=== PATIENT | male | born 1935 | race Caucasian/White ===

== ENCOUNTER 2018-07-26 07:30 | Emergency (ER) | payer MEDICARE, SELFPAY ==
[2018-07-26] VITALS (9 sets, daily range): BP systolic 142–171; BP diastolic 66–96; PULSE 62–70; RESP 13–30; TEMP 36.7; O2SAT 94–100
--- NOTE | 2018-07-26 07:33 | DI.RAD.S_ITS ---
PROCEDURE: XR CHEST 1V INDICATIONS: HTN, weakness TECHNIQUE: One view of the chest was acquired. COMPARISON: [facility], CR, CHEST 2VW, 11/12/2013, 11:46. [facility], CR, CHEST 2VW, 11/24/2013, 8:14. FINDINGS: Surgical changes and devices: There is a cardiac pacemaker. Sternotomy and CABG. Lungs and pleura: Mild hyperinflation. 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 Nodular densities in lower lung zones bilaterally are likely nipple shadows. No pleural effusions or pneumothorax. Mediastinum: Mediastinal contours appear normal. Heart size is normal. Bones and chest wall: No suspicious bony lesions. Overlying soft tissues appear unremarkable. IMPRESSION: No acute cardiopulmonary process. Dictated by: Sina Tinsley M.D. on 07/26/2018 at 8:56 Approved by: Sina Tinsley M.D. on 07/26/2018 at 8:59
--- NOTE | 2018-07-26 08:12 | DI.CT.S_ITS ---
PROCEDURE: CT HEAD/BRAIN WO CON INDICATIONS: severe MILNER, HTN 220s TECHNIQUE: Noncontrast 4.5 mm thick angled axial sections acquired from the foramen magnum to the vertex, with coronal and sagittal reformats. For radiation dose reduction, the following was used: automated exposure control, adjustment of mA and/or kV according to patient size. COMPARISON: [facility], CT, HEAD WITHOUT CONTRAST, 09/07/2013, 11:53. FINDINGS: Image quality: Excellent. CSF spaces: Basal cisterns are patent. No extra-axial fluid collections. The ventricles are symmetric in size and shape. Brain: There is encephalomalacia in the right parietal occipital lobe consistent with old infarct. In addition, there are small areas of encephalomalacia in the left parietal lobe and occipital lobe consistent with old infarcts. No intracranial bleeds or masses. There is cerebral volume loss for age, with resultant ventricular and sulcal prominence. There are periventricular and deep white matter chronic small vessel ischemic changes. There is intracranial internal carotid artery atherosclerosis. Skull and face: Calvarium and visualized facial bones appear intact, without suspicious lesions. Sinuses: Visualized sinuses and mastoids are clear. IMPRESSION: 1. 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 2. 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 3. Cerebral volume loss and chronic microvascular ischemic changes. 4. If clinical symptoms persist or clinical suspicion for pathology is high, MRI is suggested for further evaluation. Dictated by: Sina Tinsley M.D. on 07/26/2018 at 8:50 Approved by: Sina Tinsley M.D. on 07/26/2018 at 9:44
[2018-07-26 08:20] LABS: Add Manual Diff / Slide Review NO; Basophils Absolute Auto 0 /uL (0-100); Basophils Percent Auto 0.4 % (0-2); Eosinophils Absolute Auto 0 /uL (0-450); Eosinophils Percent Auto 0.4 % (2-4); Hematocrit 54.4 % (41-53); Hemoglobin 18.3 g/dL (13.5-17.5); Lymphocytes Absolute Auto 1300 /uL (1100-4500); Lymphocytes Percent Auto 13.8 % (25-40); Mean Corpuscular HGB Conc 33.6 % (30-36); Mean Corpuscular Hemoglobin 30.5 PG (26-34); Mean Corpuscular Volume 90.8 fL (80-100); Monocytes Absolute Auto 700 /uL (0-900); Monocytes Percent Auto 7.5 % (3-14); Neutrophils Absolute Auto 7600 /uL (1500-7000); Neutrophils Percent Auto 77.9 % (50-75); Platelet Count 96 X10^3/uL (150-400); Red Blood Cell Count 5.99 X10^6/uL (4.5-5.9); White Blood Cell Count 9.8 X10^3/uL (4.5-11.0)
[2018-07-26 08:21] LABS: Alanine Aminotransferase 53 IU/L (21-72); Albumin 3.9 g/dL (3.5-5.0); Albumin Globulin Ratio 1.3 (1.0-2.8); Alkaline Phosphatase 94 U/L (38-126); Aspartate Aminotransferase 42 IU/L (17-59); BUN Creatinine Ratio 21.1 (6-22); Bilirubin Total 1.4 mg/dL (0.2-1.3); Blood Urea Nitrogen 19 mg/dL (9-20); Calcium 9.1 mg/dL (8.4-10.2); Carbon Dioxide 28 mmol/L (22-32); Chloride 101 mmol/L (98-107); Creatine Kinase 70 U/L (55-170); Estimated Glomerular Filt Rate > 60.0 mL/min (>60); Globulin 3.1 g/dL (1.7-4.1); Glucose 110 mg/dL (80-110); HEMOLYSIS 35 (0-50); Lipase 140 U/L (23-300); Potassium 4.8 mmol/L (3.4-5.1); Sodium 139 mmol/L (137-145)
[2018-07-26 08:33] LABS: Troponin I 0.032 ng/mL (0.01-0.034)
[2018-07-26] MEDS: SODIUM CHLORIDE 0.9% 1,000 ML 150 ML IV (08:35)
[2018-07-26 08:45] LABS: B Type Natriuretic Peptide 174 (<100)
[2018-07-26] MEDS: ONDANSETRON 4 MG/2 ML INJ IV (09:30)
[2018-07-26] MEDS: KETOROLAC 60 MG/2 ML VIAL 15 MG IV (09:53)
[2018-07-26 10:37] LABS: C-Reactive Protein Quant < 0.5 mg/dL (<1.0)
[2018-07-26 10:41] LABS: Erythrocyte Sedimentation Rate 1 MM/HR (0-15)
[2018-07-26] MEDS: acetaZOLAMIDE 250 MG TABLET PO (10:41)
--- NOTE | 2018-07-26 10:45 | ED_ITS ---
HPI - General Adult General Chief complaint: Headache Stated complaint: Headache Time Seen by Provider: 07/26/18 07:33 Source: patient and EMS Mode of arrival: EMS Limitations: no limitations History of Present Illness HPI narrative: 82-year-old male former smoker with multiple medical problems including cardiovascular disease and a known history of left-sided central retinal vein occlusion as well as dementia presents by EMS for evaluation of a terrible headache that has been present over the course of the morning. It is left frontal headache. He denies any provocation or palliation. He is admittedly a very poor historian and has a hard time explaining his symptoms. He has nausea but no vomiting. He denies chest pain or shortness of breath. On EMS arrival they found his blood pressure to be 220 but by arrival in the emergency department he was in the 170s without any change in his symptoms Onset (ago): hour(s) Location: head Radiation: non-radiation Severity: mild Quality: burning Pain Consistency: constant Relieving factors: none Exacerbating factors: none Associated symptoms: denies other symptoms Related Data Home Medications Medication Instructions Recorded Confirmed magnesium oxide 500 mg PO DAILY #0 12/27/12 07/26/18 nitroglycerin [Nitrostat] 0.4 mg SUBLINGUAL PRN PRN #0 12/27/12 07/26/18 atorvastatin 80 mg PO DAILY 07/26/18 07/26/18 buspirone 1.25 mg PO BEDTIME 07/26/18 07/26/18 carvedilol 6.25 mg PO BID 07/26/18 07/26/18 cholecalciferol (vitamin D3) 1,000 unit PO DAILY 07/26/18 07/26/18 [Vitamin D3] clopidogrel [Plavix] 75 mg PO DAILY 07/26/18 07/26/18 donepezil [Aricept] 10 mg PO BEDTIME 07/26/18 07/26/18 flaxseed oil 2,000 mg PO DAILY 07/26/18 07/26/18 gabapentin 100 - 300 mg PO BEDTIME 07/26/18 07/26/18 hydralazine 25 mg PO BID 07/26/18 07/26/18 isosorbide dinitrate 30 mg PO DAILY 07/26/18 07/26/18 meloxicam 7.5 mg PO DAILY 07/26/18 07/26/18 pantoprazole 40 mg PO DAILY 07/26/18 07/26/18 sertraline [Zoloft] 50 mg PO DAILY 07/26/18 07/26/18 Allergies Allergy/AdvReac Type Severity Reaction Status Date / Time No Known Allergies Allergy Uncoded 08/17/17 12:54 Review of Systems Constitutional Denies chills, Denies fever(s), Denies lethargy and Denies weakness Eyes Denies change in vision, Denies eye discharge, Denies irritation and Denies loss of vision ENT Ears, Nose, Mouth, and Throat: Denies change in voice, Denies neck pain and Denies sore throat Cardiovascular Denies chest pain, Denies irregular heart rhythm, Denies lightheadedness, Denies palpitations, Denies dyspnea, Denies dyspnea on exertion and Denies orthopnea Respiratory Denies cough, Denies dyspnea, Denies dyspnea on exertion and Denies wheezing Gastrointestinal Gastrointestinal: Denies abdominal pain, Denies change in bowel habits, Denies diarrhea, Denies nausea and Denies vomiting Genitourinary Denies hematuria, Denies flank pain, Denies urinary incontinence and Denies urinary urgency Musculoskeletal Denies neck pain Integumentary/Breasts Denies pruritus, Denies erythema, Denies rash and Denies wounds Neurologic Denies confusion, Denies loss of vision and Denies weakness Psychiatric Denies anxiety, Denies confusion, Denies depression, Denies homicidal ideation and Denies suicidal ideation Endocrine Denies palpitations Hematologic/Lymphatic Denies easy bruising Allergic/Immunologic Denies wheezing PFSH Medical History CRVO (central retinal vein occlusion) (Acute) Dementia (Acute) HTN (hypertension) (Acute) TIA (transient ischemic attack) (Acute) Social History Smoking Status: Former smoker Social History Smoking Status: Former smoker Exam Narrative Exam Narrative: GENERAL: 82-year-old male appears stated age, pleasantly confused, obviously uncomfortable and rubbing his left forehead HEAD: Atraumatic. Normocephalic. No temporal or scalp tenderness. EYES: L eye red watering, fixed pupil. Vision limited to hand waving. Tonopen OD 20/ OS ERROR multiple times. Retinal US unremarkable. Normal optic nerve sheath width (<5). No fluoroscein ENT: Nose without bleeding, purulent drainage or septal hematoma. Throat without erythema, tonsillar hypertrophy or exudate. Uvula midline. Airway patent. NECK: Trachea midline. No JVD or lymphadenopathy. Supple, nontender, no meningeal signs. CARDIOVASCULAR: Regular rate and rhythm without murmurs, gallops, or rubs. RESPIRATORY: Clear to auscultation. Breath sounds equal bilaterally. No wheezes, rales, or rhonchi. GASTROINTESTINAL: Abdomen soft, non-tender, nondistended. No hepato- splenomegaly, or palpable masses. No guarding. EXTREMITIES: No clubbing, cyanosis, or edema. No joint tenderness, effusion, or edema noted. BACK: Nontender without deformity or crepitance. No flank tenderness. NEURO: AOx3. SKIN: No rash or erythema. Initial Vital Signs Initial Vital Signs: Vital Signs Temperature 98.0 F 07/26/18 07:30 Pulse Rate 62 07/26/18 07:30 Respiratory Rate 18 07/26/18 07:30 Blood Pressure 169/84 H 07/26/18 07:30 Pulse Oximetry 100 07/26/18 07:30 Course Course Narrative: Despite patient's constant statement that he always has trouble with his left eye and that his vision is constantly affected I have a high suspicion that this is all caused by an acute angle closure glaucoma. The patient is very high functioning dementia patient and is in until his daughter calls that she she has some light on his rather convincing presentation and ability to hide his confusion. She was able to confirm his primary care provider as Dr. Cuba whom I then called and was able to find an ophthalmology note suggesting the patient has a history of a central retinal vein occlusion. This finding is still not consistent such significant pain, red eye, fixed p upil. I then contacted local ophthalmology to explain my concern. They are more than happy to receive the patient directly from the emergency department to their clinic where they were able to perform studies confirming my suspicion. He was treated and sent back to the emergency department for final disposition. Please see Ophthalmology note for specifics on discharge instructions and medications. He does have follow-up scheduled for tomorrow. Orders Ordered: Discontinued Medications Acetazolamide (Diamox) 250 mg PO NOW ONE Stop: 07/26/18 10:18 Last Admin: 07/26/18 10:41 Dose: 250 mg Sodium Chloride (Normal Saline 0.9%) 1,000 mls @ 150 mls/hr IV CONT SUSAN Last Infusion: 07/26/18 13:57 Dose: 0 mls/hr Infusion: 07/26/18 11:19 Dose: 0 mls/hr Admin: 07/26/18 08:35 Dose: 150 mls/hr Ketorolac Tromethamine (Toradol) 15 mg IV NOW ONE Stop: 07/26/18 09:49 Last Admin: 07/26/18 09:53 Dose: 15 mg Latanoprost (Xalatan) 1 drops EYE-LEFT BEDTIME SUSAN Ondansetron HCl (Zofran) 4 mg IV NOW ONE Stop: 07/26/18 09:29 Last Admin: 07/26/18 09:30 Dose: 4 mg Vital Signs - 8 hr 07/26/18 13:40 Pulse Rate 68 Respiratory Rate 16 Blood Pressure [Left Arm] 142/80 H Pulse Oximetry 96 Medical Decision Making Lab Data Result diagrams: 07/26/18 08:02 07/26/18 08:02 Lab Results 07/26/18 07/26/18 07/26/18 Range/Units 08:02 08:02 08:02 WBC 9.8 (4.5-11.0) X10^3/uL RBC 5.99 H (4.5-5.9) X10^6/uL Hgb 18.3 H (13.5-17.5) g/dL Hct 54.4 H (41-53) % MCV 90.8 (80-100) fL MCH 30.5 (26-34) PG MCHC 33.6 (30-36) % RDW 14.0 (11.6-14.8) % Plt Count 96 L (150-400) X10^3/uL Neut % (Auto) 77.9 H (50-75) % Lymph % (Auto) 13.8 L (25-40) % Liberty % (Auto) 7.5 (3-14) % Eos % (Auto) 0.4 L (2-4) % Baso % (Auto) 0.4 (0-2) % Neut # (Auto) 7600 H (2128-1824) /uL Lymph # (Auto) 1300 (2371-4258) /uL Liberty # (Auto) 700 (0-900) /uL Eos # (Auto) 0 (0-450) /uL Baso # (Auto) 0 (0-100) /uL ESR 1 (0-15) MM/HR Sodium 139 (137-145) mmol/L Potassium 4.8 (3.4-5.1) mmol/L Chloride 101 (98-107) mmol/L Carbon Dioxide 28 (22-32) mmol/L BUN 19 (9-20) mg/dL Creatinine 0.90 (0.66-1.25) mg/dL Estimated GFR > 60.0 (>60) mL/min BUN/Creatinine Ratio 21.1 (6-22) Glucose 110 (80-110) mg/dL Calcium 9.1 (8.4-10.2) mg/dL Total Bilirubin 1.4 H (0.2-1.3) mg/dL AST 42 (17-59) IU/L ALT 53 (21-72) IU/L Alkaline Phosphatase 94 (38-126) U/L Total Creatine Kinase 70 (55-170) U/L CK-MB (CK-2) TNP CK-MB (CK-2) Rel Index TNP Troponin I 0.032 (0.01-0.034) ng/mL C-Reactive Protein (<1.0) mg/dL B-Natriuretic Peptide 174 H (<100) Total Protein 7.0 (6.3-8.2) g/dL Albumin 3.9 (3.5-5.0) g/dL Globulin 3.1 (1.7-4.1) g/dL Albumin/Globulin Ratio 1.3 (1.0-2.8) Lipase 140 (23-300) U/L 07/26/18 Range/Units 08:02 WBC (4.5-11.0) X10^3/uL RBC (4.5-5.9) X10^6/uL Hgb (13.5-17.5) g/dL Hct (41-53) % MCV (80-100) fL MCH (26-34) PG MCHC (30-36) % RDW (11.6-14.8) % Plt Count (150-400) X10^3/uL Neut % (Auto) (50-75) % Lymph % (Auto) (25-40) % Liberty % (Auto) (3-14) % Eos % (Auto) (2-4) % Baso % (Auto) (0-2) % Neut # (Auto) (9433-6225) /uL Lymph # (Auto) (9396-6609) /uL Liberty # (Auto) (0-900) /uL Eos # (Auto) (0-450) /uL Baso # (Auto) (0-100) /uL ESR (0-15) MM/HR Sodium (137-145) mmol/L Potassium (3.4-5.1) mmol/L Chloride (98-107) mmol/L Carbon Dioxide (22-32) mmol/L BUN (9-20) mg/dL Creatinine (0.66-1.25) mg/dL Estimated GFR (>60) mL/min BUN/Creatinine Ratio (6-22) Glucose (80-110) mg/dL Calcium (8.4-10.2) mg/dL Total Bilirubin (0.2-1.3) mg/dL AST (17-59) IU/L ALT (21-72) IU/L Alkaline Phosphatase (38-126) U/L Total Creatine Kinase (55-170) U/L CK-MB (CK-2) CK-MB (CK-2) Rel Index Troponin I (0.01-0.034) ng/mL C-Reactive Protein < 0.5 (<1.0) mg/dL B-Natriuretic Peptide (<100) Total Protein (6.3-8.2) g/dL Albumin (3.5-5.0) g/dL Globulin (1.7-4.1) g/dL Albumin/Globulin Ratio (1.0-2.8) Lipase (23-300) U/L Discharge Plan Departure Patient Disposition: Home 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 Discharge Date/Time: 07/26/18 14:10 Interventions: ED Discharge Assessment Last Done: 07/26/18 14:10 Instructions: Angle-Closure Glaucoma Activity Restrictions/Additional Instructions: Discharge per ophthalmology Prescriptions: No Action magnesium oxide 500 mg Tablet 500 mg PO DAILY Qty: 0 RF: 0 nitroglycerin [Nitrostat] 0.4 MG tablet, sublingual 0.4 mg Sublingual PRN PRN (Reason: Chest Pain) Qty: 0 RF: 0 buspirone 5 mg Tablet 1.25 mg PO BEDTIME RF: 0 atorvastatin 80 mg Tablet 80 mg PO DAILY RF: 0 carvedilol 12.5 mg Tablet 6.25 mg PO BID RF: 0 donepezil [Aricept] 10 mg Tablet 10 mg PO BEDTIME RF: 0 hydralazine 25 mg Tablet 25 mg PO BID RF: 0 clopidogrel [Plavix] 75 mg Tablet 75 mg PO DAILY RF: 0 meloxicam 7.5 mg Tablet 7.5 mg PO DAILY RF: 0 isosorbide dinitrate 30 mg Tablet 30 mg PO DAILY RF: 0 flaxseed oil 1,000 mg Capsule 2,000 mg PO DAILY RF: 0 pantoprazole 40 mg Tablet,Delayed Release (Dr/Ec) 40 mg PO DAILY RF: 0 gabapentin 100 mg Capsule 100 - 300 mg PO BEDTIME RF: 0 sertraline [Zoloft] 50 mg Tablet 50 mg PO DAILY RF: 0 cholecalciferol (vitamin D3) [Vitamin D3] 1,000 unit Tablet 1,000 unit PO DAILY RF: 0 Referrals: Ernesto Plascencia MD [Physician] -
--- NOTE | 2018-07-26 11:07 | PC.NURSE ---
Pt wheeled to [facility] via wheelchair and [employer] accompany
--- NOTE | 2018-07-26 11:23 | PC.NURSE ---
pt to eye doctor by wheelchair. to return to ER>
== END 2018-07-26 14:10 | disposition home or self-care (01) ==
PROVIDERS: Emergency Provider Emergency Medicine
DX: H40.212 Acute angle-closure glaucoma, left eye (principal); I10 Essential (primary) hypertension
CPT/HCPCS: 36415; 70450; 71045; 80053; 82550; 83690; 83880; 84484; 85025; 85651; 86140; 93005; 96361; 96374; 96375; 99284; 99285; J1885; J2405

== ENCOUNTER 2018-08-04 10:53 | Emergency (ER) | payer MEDICARE, OTHER, SELFPAY ==
[2018-08-04] VITALS (14 sets, daily range): BP systolic 103–142; BP diastolic 46–98; PULSE 70–83; RESP 14–23; TEMP 36.8; O2SAT 93–100
--- NOTE | 2018-08-04 11:28 | DI.RAD.S_ITS ---
PROCEDURE: XR CHEST 1V INDICATIONS: chest pain TECHNIQUE: One view of the chest was acquired. COMPARISON: [facility], , XR CHEST 1V, 07/26/2018, 8:04. FINDINGS: Surgical changes and devices: A left-sided cardiac pacer/defibrillator apparatus is identified. Median sternotomy changes are noted. Lungs and pleura: Lungs are clear. No pleural effusions or pneumothorax. Aeration of the lungs is similar to the prior study. Mediastinum: Mediastinal contours appear normal. Heart size is normal. There is aortic atherosclerosis. Bones and chest wall: No suspicious bony lesions. Overlying soft tissues appear unremarkable. IMPRESSION: Stable chest. No acute cardiopulmonary process is evident. Dictated by: Dashawn Claros M.D. on 08/04/2018 at 10:52 Approved by: Dashawn Claros M.D. on 08/04/2018 at 10:53
--- NOTE | 2018-08-04 12:42 | ED.CHESTPAIN ---
HPI - Chest Pain General Chief Complaint: Chest Pain Stated Complaint: low hr, hypotension Time Seen by Provider: 08/04/18 12:42 Source: patient, family () and other (Dr. Odessa Cuba, PCP) Mode of arrival: EMS Limitations: other (chronic dementia of both patient and ) History of Present Illness HPI narrative: This is an 82-year-old male who comes to the emergency department for chest pain. Patient and his state that he has had multiple visits for glaucoma with Dr. Bacilio francis and is seeing [facility] specialty doctor in [place] now and is supposed to get surgery. He states that was about 3 or 4 days ago. states that he has seen like his fingers are sometimes yellow or blue discoloration. He has been less active but this is been for months maybe even a year. He has not been having any shortness of breath that is new or that he has noted with exertion although he states he does not really exert himself. He has had some chest pain he thinks about 3 weeks, he states he typically ignores it there does not seem to be any clear pattern. He does have a cardiac physician and Dr. akira yates and Dr. Hector and states that he stopped taking his heart pills in the last week to several days. Patient states that he ran out. He had has a lot of memory problems which the patient states he has as well as his primary care physician and his and that he forgot to get them refilled. When he ran out he just did not reorder them he has maybe felt a little lightheaded he has been sleeping a little bit more. 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 He has an AICD pacemaker in place. He denies any history of CHF but has had heart attacks and states that he had something removed from his lower heart according to his office note he had a aortic abdominal aneurysm. Related Data Home Medications Medication Instructions Recorded Confirmed nitroglycerin [Nitrostat] 0.4 mg SUBLINGUAL PRN PRN #0 12/27/12 08/04/18 atorvastatin 80 mg PO DAILY 07/26/18 08/04/18 buspirone 1.25 mg PO BEDTIME 07/26/18 08/04/18 carvedilol 12.5 mg PO BID 07/26/18 08/04/18 cholecalciferol (vitamin D3) 1,000 unit PO DAILY 07/26/18 08/04/18 [Vitamin D3] clopidogrel [Plavix] 75 mg PO DAILY 07/26/18 08/04/18 donepezil [Aricept] 10 mg PO BEDTIME 07/26/18 08/04/18 flaxseed oil 2,000 mg PO DAILY 07/26/18 08/04/18 gabapentin 100 - 300 mg PO BEDTIME 07/26/18 08/04/18 hydralazine 25 mg PO BID 07/26/18 08/04/18 meloxicam 7.5 mg PO DAILY 07/26/18 08/04/18 pantoprazole 40 mg PO DAILY 07/26/18 08/04/18 sertraline [Zoloft] 50 mg PO DAILY 07/26/18 08/04/18 acetazolamide 500 mg PO BID 08/04/18 08/04/18 brimonidine 1 drp EYE-LEFT QPM 08/04/18 08/04/18 dorzolamide 1 drp EYE-LEFT BID 08/04/18 08/04/18 isosorbide mononitrate 30 mg PO DAILY 08/04/18 08/04/18 ketoconazole 1 applic TOPICAL DIRECTED 08/04/18 08/04/18 ketoconazole 1 applic TOPICAL BID PRN 08/04/18 08/04/18 latanoprost 1 drp EYE-BOTH BEDTIME 08/04/18 08/04/18 magnesium oxide 420 mg PO DAILY 08/04/18 08/04/18 mirtazapine 7.5 mg PO BEDTIME 08/04/18 08/04/18 moxifloxacin 1 drp OPHTHALMIC (EYE) QID 08/04/18 08/04/18 multivitamin with minerals 1 tab PO DAILY 08/04/18 08/04/18 netarsudil [Rhopressa] 1 drp EYE-LEFT BEDTIME 08/04/18 08/04/18 nortriptyline 10 mg PO BEDTIME 08/04/18 08/04/18 timolol 1 drp EYE-LEFT BID 08/04/18 08/04/18 tramadol 50 mg PO TID PRN 08/04/18 08/04/18 Allergies Allergy/AdvReac Type Severity Reaction Status Date / Time No Known Drug Allergies Allergy Verified 08/04/18 11:28 Review of Systems Review of Systems ROS Unobtainable: All systems reviewed & are unremarkable except as noted in HPI and below Constitutional Denies body ache(s), Denies chills, Denies fatigue, Denies fever(s), Denies lethargy, Denies malaise, Reports poor appetite, Denies weakness and Denies weight gain Cardiovascular Reports chest pain, Denies chest pain with activity, Denies syncope, Denies rapid heart rate, Denies edema, Denies irregular heart rhythm, Denies lightheadedness, Denies radiating jaw, neck or arm pain, Denies palpitations, Denies dyspnea, Denies dyspnea on exertion and Denies orthopnea Respiratory Denies chest congestion, Denies cough, Denies pain on inspiration, Denies dyspnea and Denies dyspnea on exertion Gastrointestinal Gastrointestinal: Reports abdominal pain (Lower chest/upper abdomen), Denies melena, Denies hematochezia, Denies change in bowel habits, Denies diarrhea, Denies nausea and Denies vomiting Genitourinary Denies hematuria, Denies flank pain and Denies urinary urgency Musculoskeletal Denies back pain and Reports other (Amputation of left lower extremity) Integumentary/Breasts Denies lesions and Denies rash Neurologic Reports confusion (Slowly worsening over time), Denies syncope, Denies focal weakness, Denies sensory deficit and Denies weakness Psychiatric Reports confusion (Slowly worsening over time) Endocrine Denies fatigue and Denies palpitations [facility] Medical History (Updated 08/04/18 @ 20:01 by Josee Vásquez DO) CRVO (central retinal vein occlusion) (Acute) Dementia (Acute) HTN (hypertension) (Acute) TIA (transient ischemic attack) (Acute) AAA (abdominal aortic aneurysm) (Chronic) Atrial fibrillation (Chronic) Bilateral renal artery stenosis (Chronic) Dyslipidemia (Chronic) Peripheral vascular disease (Chronic) Thrombocytopenia (Chronic) Intracerebral bleed (Resolved) Surgical History (Updated 08/04/18 @ 20:02 by Josee Vásquez DO) AICD (automatic cardioverter/defibrillator) present (Chronic) 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 HEENT: Head normocephalic, atraumatic, EOMI, pupils reactive, face symmetric, moist mucous membranes NECK: Supple, full range of motion CARDIOVASCULAR: Irregular rate and rhythm without murmurs, rubs or gallops. No murmur appreciated. no edema noted in patient's lower extremity. RESPIRATORY: Breath sounds equal bilaterally, no wheezes rales or rhonchi. No tachypnea, no accessory muscle use. Patient speaks in full sentences. ABDOMEN: Soft, nontender. Normoactive bowel sounds all 4 quadrants. No guarding or rebound, rigidity, no mass : No CVA tenderness EXTREMITIES: Normal range of motion, no clubbing or edema. Neurovascularly intact NEUROLOGICAL: Cranial nerves II through XII grossly intact. Moving all extremities SKIN: Warm, dry, no petechiae, no rashes or lesions. Initial Vital Signs Initial Vital Signs: Vital Signs Temperature 98.2 F 08/04/18 10:48 Pulse Rate 72 08/04/18 10:48 Respiratory Rate 18 08/04/18 10:48 Blood Pressure 121/64 08/04/18 10:48 Pulse Oximetry 95 08/04/18 10:48 Course Orders Ordered: ED Orders 08/04/18 11:28 XR chest 1V Stat EKG-12 Lead Stat 08/04/18 13:53 Complete Blood Count AUTO DIFF Stat Comprehensive Metabolic Panel Stat Lipase Stat Partial Thromboplastin Time Stat Prothrombin Time INR Stat Troponin & CK Cardiac Panel Stat 08/04/18 14:27 Consult to Manager Medical Writing Stat 08/04/18 15:01 US abdomen complete Stat 08/04/18 16:02 Troponin & CK Cardiac Panel Stat 08/04/18 16:32 EKG-12 Lead Stat Discontinued Medications Sodium Chloride (Normal Saline 0.9%) 1,000 mls @ 125 mls/hr IV BOLUS ONE Stop: 08/04/18 23:35 Last Admin: 08/04/18 15:37 Dose: Not Given Vital Signs - 8 hr 08/04/18 12:13 08/04/18 12:15 08/04/18 12:44 Pulse Rate 82 76 75 Respiratory Rate 17 14 23 Blood Pressure [Left Arm] 108/55 L 103/46 L 125/61 Pulse Oximetry 97 98 98 08/04/18 13:00 08/04/18 13:25 08/04/18 14:00 Pulse Rate 76 78 79 Respiratory Rate 17 18 18 Blood Pressure [Left Arm] 111/55 L 125/98 H 115/72 Pulse Oximetry 99 99 97 08/04/18 14:30 08/04/18 15:00 08/04/18 15:30 Pulse Rate 83 83 82 Respiratory Rate 20 19 17 Blood Pressure [Left Arm] 142/76 H 132/64 110/67 Pulse Oximetry 93 98 98 08/04/18 15:52 08/04/18 16:33 08/04/18 17:13 Pulse Rate 74 73 70 Respiratory Rate 18 18 17 Blood Pressure [Left Arm] 134/83 109/53 L 127/82 Pulse Oximetry 98 98 98 MDM - Chest Pain Lab Data Attestation: I reviewed the patient's lab results. Result diagrams: 08/04/18 13:53 08/04/18 13:53 Lab Results 08/04/18 08/04/18 08/04/18 Range/Units 13:53 13:53 13:53 WBC 7.8 (4.5-11.0) X10^3/uL RBC 5.83 (4.5-5.9) X10^6/uL Hgb 17.8 H (13.5-17.5) g/dL Hct 53.3 H (41-53) % MCV 91.6 (80-100) fL MCH 30.6 (26-34) PG MCHC 33.4 (30-36) % RDW 14.6 (11.6-14.8) % Plt Count 91 L (150-400) X10^3/uL Neut % (Auto) 77.7 H (50-75) % Lymph % (Auto) 15.0 L (25-40) % Hardy % (Auto) 6.5 (3-14) % Eos % (Auto) 0.5 L (2-4) % Baso % (Auto) 0.3 (0-2) % Neut # (Auto) 6100 (4525-7976) /uL Lymph # (Auto) 1200 (4888-0230) /uL Hardy # (Auto) 500 (0-900) /uL Eos # (Auto) 0 (0-450) /uL Baso # (Auto) 0 (0-100) /uL PT 12.3 (10.1-12.7) SECONDS INR 1.1 (0.9-1.3) APTT 32 (26.4-36.2) SECONDS Sodium 141 (137-145) mmol/L Potassium 4.0 (3.4-5.1) mmol/L Chloride 111 H (98-107) mmol/L Carbon Dioxide 20 L (22-32) mmol/L BUN 24 H (9-20) mg/dL Creatinine 1.10 (0.66-1.25) mg/dL Estimated GFR > 60.0 (>60) mL/min BUN/Creatinine Ratio 21.8 (6-22) Glucose 88 (80-110) mg/dL Calcium 8.7 (8.4-10.2) mg/dL Total Bilirubin 1.5 H (0.2-1.3) mg/dL AST 27 (17-59) IU/L ALT 34 (21-72) IU/L Alkaline Phosphatase 83 (38-126) U/L Total Creatine Kinase 53 L (55-170) U/L CK-MB (CK-2) TNP CK-MB (CK-2) Rel Index TNP Troponin I 0.075 H (0.01-0.034) ng/mL Total Protein 6.3 (6.3-8.2) g/dL Albumin 3.5 (3.5-5.0) g/dL Globulin 2.8 (1.7-4.1) g/dL Albumin/Globulin Ratio 1.3 (1.0-2.8) Lipase 161 (23-300) U/L // Range/Units 16:02 WBC (4.5-11.0) X10^3/uL RBC (4.5-5.9) X10^6/uL Hgb (13.5-17.5) g/dL Hct (41-53) % MCV (80-100) fL MCH (26-34) PG MCHC (30-36) % RDW (11.6-14.8) % Plt Count (150-400) X10^3/uL Neut % (Auto) (50-75) % Lymph % (Auto) (25-40) % Hardy % (Auto) (3-14) % Eos % (Auto) (2-4) % Baso % (Auto) (0-2) % Neut # (Auto) (2830-3163) /uL Lymph # (Auto) (4582-7261) /uL Hardy # (Auto) (0-900) /uL Eos # (Auto) (0-450) /uL Baso # (Auto) (0-100) /uL PT (10.1-12.7) SECONDS INR (0.9-1.3) APTT (26.4-36.2) SECONDS Sodium (137-145) mmol/L Potassium (3.4-5.1) mmol/L Chloride (98-107) mmol/L Carbon Dioxide (22-32) mmol/L BUN (9-20) mg/dL Creatinine (0.66-1.25) mg/dL Estimated GFR (>60) mL/min BUN/Creatinine Ratio (6-22) Glucose (80-110) mg/dL Calcium (8.4-10.2) mg/dL Total Bilirubin (0.2-1.3) mg/dL AST (17-59) IU/L ALT (21-72) IU/L Alkaline Phosphatase (38-126) U/L Total Creatine Kinase 42 L (55-170) U/L CK-MB (CK-2) TNP CK-MB (CK-2) Rel Index TNP Troponin I 0.067 H (0.01-0.034) ng/mL Total Protein (6.3-8.2) g/dL Albumin (3.5-5.0) g/dL Globulin (1.7-4.1) g/dL Albumin/Globulin Ratio (1.0-2.8) Lipase (23-300) U/L Imaging Data Chest x-ray: Radiologist's impression: Hilario Lopez [address] [address] XRay Report Signed Patient: Hilario Lopez#: [id number] : 6Acct:[id number] Age/Sex: 82 / MDate of Service: 08/04/18 Loc: ED Accession Number: [id number] Procedure: XR chest 1V Ordering Provider: Josee Vásquez D.O. PROCEDURE: XR CHEST 1V INDICATIONS: chest pain TECHNIQUE: One view of the chest was acquired. COMPARISON: [facility], XR CHEST 1V, 07/26/2018, 8:04. FINDINGS: Surgical changes and devices: A left-sided cardiac pacer/defibrillator apparatus is identified. Median sternotomy changes are noted. Lungs and pleura: Lungs are clear. No pleural effusions or pneumothorax. Aeration of the lungs is similar to the prior study. Mediastinum: Mediastinal contours appear normal. Heart size is normal. There is aortic atherosclerosis. Bones and chest wall: No suspicious bony lesions. Overlying soft tissues appear unremarkable. IMPRESSION: Stable chest. No acute cardiopulmonary process is evident. Dictated by: Dashawn Claros M.D. on 08/04/2018 at 10:52 Approved by: Dashawn Claros M.D. on 08/04/2018 at 10:53 US - abdomen: Radiologist's impression: Hilario Lopez M 1935 [place] [address] Ultrasound Report Signed Patient: Hilario LopezMR#: [id number] : 6Acct:[id number] Age/Sex: 82 / MDate of Service: 08/04/18 Loc: ED Accession Number: [id number] Procedure: US abdomen complete Ordering Provider: Josee Vásquez D.O. PROCEDURE: US ABDOMEN COMPLETE INDICATIONS: ABDOMINAL / CHEST PAIN TECHNIQUE: Real-time scanning was performed of the abdominal and retroperitoneal organs, with image documentation. COMPARISON: [facility], PET/CT NECK TO MID THIGH, 11/19/2011, 13:42. Merged With [facility], , XR CHEST 1V, 07/26/2018, 8:04. [facility], ABDOMEN COMPLETE, 05/18/2010, 10:57. FINDINGS: Liver: There is poor visualization of the left hepatic lobe due to midline bowel gas. The imaged right hepatic lobe appears unremarkable, with sagittal diameter of 14.1 cm. Gallbladder: Absent. Biliary ducts: Intrahepatic bile ducts are non-dilated. The proximal common bile duct caliber measures 4 mm. The mid and distal common bile duct are obscured by overlying bowel gas. Pancreas: Visualized portions of the pancreatic head are sonographically normal. Remainder of the pancreas is obscured by overlying bowel gas. Spleen: Spleen is normal in size (9.7 cm) and homogeneous in echotexture. Kidneys: Kidneys are normal in size and echotexture. Right kidney measures 8.5 cm long; left kidney measures 9.9 cm long. No hydronephrosis or nephrolithiasis. Aorta: The imaged proximal abdominal aorta measures 2.2 cm. Imaged mid abdominal aorta measures 2.1 cm. Imaged distal abdominal aorta measures 1.2 cm. Iliacs: Proximal common iliac arteries are obscured by overlying bowel gas. IVC: Intrahepatic inferior vena cava is poorly visualized but appears patent. Miscellaneous: No free abdominal fluid. IMPRESSION: Suboptimal exam due to overlying bowel gas, which partially obscures areas of abdominal anatomy as described above. Within this context, no ultrasound findings are identified to explain patient's reported abdominal/chest pain. Dictated by: Rick Llanes M.D. on 08/04/2018 at 16:17 Approved by: Rick Llanes M.D. on 08/04/2018 at 16:41 ECG Data Attestation: I personally reviewed and interpreted this ECG as follows: Prior ECG tracings: available for review Interpretation: Patient has multiple EKGs from 04/04, patient has atrial paced rhythm intermittently. 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 Patient has a rate of 69 APR interval at 2:43 a.m. QRS of 118 and QTC of 376. Patient does appear to have some T-wave depression in V4 5 and 6. No elevation is appreciated patient does have a PVC in V2 V3. In comparison to prior from his doorperson from 04/04/2018 EKG appears fairly similar in ST segments except for artifact from PVC. Patient had repeat EKG in the department which continues to show multiple PVCs. On EKG 2. He has a rate of 72 which the majority is paced, IL interval is 248, QRS is [address] segments a continued appears similar to prior EKG today. MDM Narrative Medical decision making narrative: I discussed with patient his 1st troponin is in the indeterminate range. He is hemoglobin is slightly elevated, he has thrombocytopenia. His bilirubin is slightly elevated ultrasound was obtained were not able to visualize all of the organs in their entirety but no acute changes were noted and patient is nontender to palpation. patient does not have a white count, his electrolytes show his chloride is elevated at 111, bicarb was 20 with a BUN of 24, normal range creatinine. Repeat troponin shows improvement but still in the indeterminate range. Discussed with patient he does not wish to be hospitalized and prefers to go home. He is aware of any potential cardiac risks but feels that he would prefer to be at home. He does state that if he were to have a massive heart attack or his heart were to stop working he would not want to be restarted. His daughter was also contacted by social work and she is actively helping to reestablish their caregivers come as they were fired by the patient and his . Daughter lives here 6 months out of the year and will be back in town within the week. She has also ordered all of his medications. I spoke with her she is aware of her father's wishes and is comfortable with them. She is comfortable with him returning and is aware that we cannot completely rule out a cardiac cause for his symptoms. while here in the department patient's blood pressure, heart rate and oxygenation have been appropriate. Discharge Plan Departure Patient Disposition: Home Clinical Impression: Atypical chest pain Discharge Date/Time: 08/04/18 17:35 Interventions: ED Discharge Assessment Last Done: 08/04/18 17:31 Instructions: DI for Chest Pain Activity Restrictions/Additional Instructions: Follow up with either your primary care or your doorperson in the next week. Call for an appointment. As discussed your labs today show your heart enzyme is elevated but indeterminate which does not exclude a cardiac cause for your chest pain. I also discussed this with your daughter. I do recommend restarting all of your home medications and taking them as prescribed. Return to the emergency department for fevers greater than 100.4, recurrent chest pain, new shortness of breath, lightheadedness or passing-out, new weakness, persistent vomiting or other new or concerning symptoms. Prescriptions: No Action nitroglycerin [Nitrostat] 0.4 MG tablet, sublingual 0.4 mg Sublingual PRN PRN (Reason: Chest Pain) Qty: 0 RF: 0 buspirone 5 mg Tablet 1.25 mg PO BEDTIME RF: 0 atorvastatin 80 mg Tablet 80 mg PO DAILY RF: 0 carvedilol 12.5 mg Tablet 12.5 mg PO BID RF: 0 donepezil [Aricept] 10 mg Tablet 10 mg PO BEDTIME RF: 0 hydralazine 25 mg Tablet 25 mg PO BID RF: 0 clopidogrel [Plavix] 75 mg Tablet 75 mg PO DAILY RF: 0 meloxicam 7.5 mg Tablet 7.5 mg PO DAILY RF: 0 flaxseed oil 1,000 mg Capsule 2,000 mg PO DAILY RF: 0 pantoprazole 40 mg Tablet,Delayed Release (Dr/Ec) 40 mg PO DAILY RF: 0 gabapentin 100 mg Capsule 100 - 300 mg PO BEDTIME RF: 0 sertraline [Zoloft] 50 mg Tablet 50 mg PO DAILY RF: 0 cholecalciferol (vitamin D3) [Vitamin D3] 1,000 unit Tablet 1,000 unit PO DAILY RF: 0 acetazolamide 500 mg Capsule, Extended Release 500 mg PO BID RF: 0 latanoprost 0.005 % Drops 1 drp EYE-BOTH BEDTIME RF: 0 magnesium oxide 420 mg Tablet 420 mg PO DAILY RF: 0 ketoconazole 2 % Shampoo 1 applic TOPICAL DIRECTED RF: 0 isosorbide mononitrate 30 mg Tablet Extended Release 24 Hr 30 mg PO DAILY RF: 0 tramadol 50 mg Tablet 50 mg PO TID PRN (Reason: pain) RF: 0 timolol 0.5 % Drops 1 drp EYE-LEFT BID RF: 0 nortriptyline 10 mg Capsule 10 mg PO BEDTIME RF: 0 brimonidine 0.2 % Drops 1 drp EYE-LEFT QPM RF: 0 mirtazapine 15 mg Tablet 7.5 mg PO BEDTIME RF: 0 multivitamin with minerals Tablet 1 tab PO DAILY RF: 0 ketoconazole 2 % Cream 1 applic TOPICAL BID PRN (Reason: active red rash) RF: 0 dorzolamide 2 % Drops 1 drp EYE-LEFT BID RF: 0 moxifloxacin 0.5 % Drops 1 drp ophthalmic (eye) QID RF: 0 Rhopressa 0.02 % Drops 1 drp EYE-LEFT BEDTIME RF: 0 Referrals: Brooke Medina MD [Physician] - Odessa Cuba MD [Physician] -
--- NOTE | 2018-08-04 13:31 | ED_ITS ---
HPI - Chest Pain General Chief Complaint: Chest Pain Stated Complaint: low hr, hypotension Time Seen by Provider: 08/04/18 12:42 Source: patient, family () and other (Dr. Odessa Cuba, PCP) Mode of arrival: EMS Limitations: other (chronic dementia of both patient and ) History of Present Illness HPI narrative: This is an 82-year-old male who comes to the emergency department for chest pain. Patient and his state that he has had multiple visits for glaucoma with Dr. Bacilio francis and is seeing AI specialty doctor in [place] now and is supposed to get surgery. He states that was about 3 or 4 days ago. states that he has seen like his fingers are sometimes yellow or blue discoloration. He has been less active but this is been for months maybe even a year. He has not been having any shortness of breath that is new or that he has noted with exertion although he states he does not really exert himself. He has had some chest pain he thinks about 3 weeks, he states he typically ignores it there does not seem to be any clear pattern. He does have a cardiac physician and Dr. akira yates and Dr. Hector and states that he stopped taking his heart pills in the last week to several days. Patient states that he ran out. He had has a lot of memory problems which the patient states he has as well as his primary care physician and his and that he forgot to get them refilled. When he ran out he just did not reorder them he has maybe felt a little lightheaded he has been sleeping a little bit more. 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 He has an AICD pacemaker in place. He denies any history of CHF but has had hea rt attacks and states that he had something removed from his lower heart according to his office note he had a aortic abdominal aneurysm. Related Data Home Medications Medication Instructions Recorded Confirmed nitroglycerin [Nitrostat] 0.4 mg SUBLINGUAL PRN PRN #0 12/27/12 08/04/18 atorvastatin 80 mg PO DAILY 07/26/18 08/04/18 buspirone 1.25 mg PO BEDTIME 07/26/18 08/04/18 carvedilol 12.5 mg PO BID 07/26/18 08/04/18 cholecalciferol (vitamin D3) 1,000 unit PO DAILY 07/26/18 08/04/18 [Vitamin D3] clopidogrel [Plavix] 75 mg PO DAILY 07/26/18 08/04/18 donepezil [Aricept] 10 mg PO BEDTIME 07/26/18 08/04/18 flaxseed oil 2,000 mg PO DAILY 07/26/18 08/04/18 gabapentin 100 - 300 mg PO BEDTIME 07/26/18 08/04/18 hydralazine 25 mg PO BID 07/26/18 08/04/18 meloxicam 7.5 mg PO DAILY 07/26/18 08/04/18 pantoprazole 40 mg PO DAILY 07/26/18 08/04/18 sertraline [Zoloft] 50 mg PO DAILY 07/26/18 08/04/18 acetazolamide 500 mg PO BID 08/04/18 08/04/18 brimonidine 1 drp EYE-LEFT QPM 08/04/18 08/04/18 dorzolamide 1 drp EYE-LEFT BID 08/04/18 08/04/18 isosorbide mononitrate 30 mg PO DAILY 08/04/18 08/04/18 ketoconazole 1 applic TOPICAL DIRECTED 08/04/18 08/04/18 ketoconazole 1 applic TOPICAL BID PRN 08/04/18 08/04/18 latanoprost 1 drp EYE-BOTH BEDTIME 08/04/18 08/04/18 magnesium oxide 420 mg PO DAILY 08/04/18 08/04/18 mirtazapine 7.5 mg PO BEDTIME 08/04/18 08/04/18 moxifloxacin 1 drp OPHTHALMIC (EYE) QID 08/04/18 08/04/18 multivitamin with minerals 1 tab PO DAILY 08/04/18 08/04/18 netarsudil [Rhopressa] 1 drp EYE-LEFT BEDTIME 08/04/18 08/04/18 nortriptyline 10 mg PO BEDTIME 08/04/18 08/04/18 timolol 1 drp EYE-LEFT BID 08/04/18 08/04/18 tramadol 50 mg PO TID PRN 08/04/18 08/04/18 Allergies Allergy/AdvReac Type Severity Reaction Status Date / Time No Known Drug Allergies Allergy Verified 08/04/18 11:28 Review of Systems Review of Systems ROS Unobtainable: All systems reviewed & are unremarkable except as noted in HPI and below Constitutional Denies body ache(s), Denies chills, Denies fatigue, Denies fever(s), Denies lethargy, Denies malaise, Reports poor appetite, Denies weakness and Denies weight gain Cardiovascular Reports chest pain, Denies chest pain with activity, Denies syncope, Denies rapid heart rate, Denies edema, Denies irregular heart rhythm, Denies lightheadedness, Denies radiating jaw, neck or arm pain, Denies palpitations, Denies dyspnea, Denies dyspnea on exertion and Denies orthopnea Respiratory Denies chest congestion, Denies cough, Denies pain on inspiration, Denies dyspnea and Denies dyspnea on exertion Gastrointestinal Gastrointestinal: Reports abdominal pain (Lower chest/upper abdomen), Denies melena, Denies hematochezia, Denies change in bowel habits, Denies diarrhea, Denies nausea and Denies vomiting Genitourinary Denies hematuria, Denies flank pain and Denies urinary urgency Musculoskeletal Denies back pain and Reports other (Amputation of left lower extremity) Integumentary/Breasts Denies lesions and Denies rash Neurologic Reports confusion (Slowly worsening over time), Denies syncope, Denies focal weakness, Denies sensory deficit and Denies weakness Psychiatric Reports confusion (Slowly worsening over time) Endocrine Denies fatigue and Denies palpitations [facility] Medical History (Updated 08/04/18 @ 20:01 by Josee Vásquez DO) CRVO (central retinal vein occlusion) (Acute) Dementia (Acute) HTN (hypertension) (Acute) TIA (transient ischemic attack) (Acute) AAA (abdominal aortic aneurysm) (Chronic) Atrial fibrillation (Chronic) Bilateral renal artery stenosis (Chronic) Dyslipidemia (Chronic) Peripheral vascular disease (Chronic) Thrombocytopenia (Chronic) Intracerebral bleed (Resolved) Surgical History (Updated 08/04/18 @ 20:02 by Josee Vásquez DO) AICD (automatic cardioverter/defibrillator) present (Chronic) 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 HEENT: Head normocephalic, atraumatic, EOMI, pupils reactive, face symmetric, moist mucous membranes NECK: Supple, full range of motion CARDIOVASCULAR: Irregular rate and rhythm without murmurs, rubs or gallops. No murmur appreciated. no edema noted in patient's lower extremity. RESPIRATORY: Breath sounds equal bilaterally, no wheezes rales or rhonchi. No tachypnea, no accessory muscle use. Patient speaks in full sentences. ABDOMEN: Soft, nontender. Normoactive bowel sounds all 4 quadrants. No guarding or rebound, rigidity, no mass : No CVA tenderness EXTREMITIES: Normal range of motion, no clubbing or edema. Neurovascularly intact NEUROLOGICAL: Cranial nerves II through XII grossly intact. Moving all extremities SKIN: Warm, dry, no petechiae, no rashes or lesions. Initial Vital Signs Initial Vital Signs: Vital Signs Temperature 98.2 F 08/04/18 10:48 Pulse Rate 72 08/04/18 10:48 Respiratory Rate 18 08/04/18 10:48 Blood Pressure 121/64 08/04/18 10:48 Pulse Oximetry 95 08/04/18 10:48 Course Orders Ordered: ED Orders 08/04/18 11:28 XR chest 1V Stat EKG-12 Lead Stat 08/04/18 13:53 Complete Blood Count AUTO DIFF Stat Comprehensive Metabolic Panel Stat Lipase Stat Partial Thromboplastin Time Stat Prothrombin Time INR Stat Troponin & CK Cardiac Panel Stat 08/04/18 14:27 Consult to Videogame Designer Stat 08/04/18 15:01 US abdomen complete Stat 08/04/18 16:02 Troponin & CK Cardiac Panel Stat 08/04/18 16:32 EKG-12 Lead Stat Discontinued Medications Sodium Chloride (Normal Saline 0.9%) 1,000 mls @ 125 mls/hr IV BOLUS ONE Stop: 08/04/18 23:35 Last Admin: 08/04/18 15:37 Dose: Not Given Vital Signs - 8 hr 08/04/18 12:13 08/04/18 12:15 08/04/18 12:44 Pulse Rate 82 76 75 Respiratory Rate 17 14 23 Blood Pressure [Left Arm] 108/55 L 103/46 L 125/61 Pulse Oximetry 97 98 98 08/04/18 13:00 08/04/18 13:25 08/04/18 14:00 Pulse Rate 76 78 79 Respiratory Rate 17 18 18 Blood Pressure [Left Arm] 111/55 L 125/98 H 115/72 Pulse Oximetry 99 99 97 08/04/18 14:30 08/04/18 15:00 08/04/18 15:30 Pulse Rate 83 83 82 Respiratory Rate 20 19 17 Blood Pressure [Left Arm] 142/76 H 132/64 110/67 Pulse Oximetry 93 98 98 08/04/18 15:52 08/04/18 16:33 08/04/18 17:13 Pulse Rate 74 73 70 Respiratory Rate 18 18 17 Blood Pressure [Left Arm] 134/83 109/53 L 127/82 Pulse Oximetry 98 98 98 MDM - Chest Pain Lab Data Attestation: I reviewed the patient's lab results. Result diagrams: 08/04/18 13:53 08/04/18 13:53 Lab Results 08/04/18 08/04/18 08/04/18 Range/Units 13:53 13:53 13:53 WBC 7.8 (4.5-11.0) X10^3/uL RBC 5.83 (4.5-5.9) X10^6/uL Hgb 17.8 H (13.5-17.5) g/dL Hct 53.3 H (41-53) % MCV 91.6 (80-100) fL MCH 30.6 (26-34) PG MCHC 33.4 (30-36) % RDW 14.6 (11.6-14.8) % Plt Count 91 L (150-400) X10^3/uL Neut % (Auto) 77.7 H (50-75) % Lymph % (Auto) 15.0 L (25-40) % Dunn % (Auto) 6.5 (3-14) % Eos % (Auto) 0.5 L (2-4) % Baso % (Auto) 0.3 (0-2) % Neut # (Auto) 6100 (6074-5449) /uL Lymph # (Auto) 1200 (2855-8582) /uL Dunn # (Auto) 500 (0-900) /uL Eos # (Auto) 0 (0-450) /uL Baso # (Auto) 0 (0-100) /uL PT 12.3 (10.1-12.7) SECONDS INR 1.1 (0.9-1.3) APTT 32 (26.4-36.2) SECONDS Sodium 141 (137-145) mmol/L Potassium 4.0 (3.4-5.1) mmol/L Chloride 111 H (98-107) mmol/L Carbon Dioxide 20 L (22-32) mmol/L BUN 24 H (9-20) mg/dL Creatinine 1.10 (0.66-1.25) mg/dL Estimated GFR > 60.0 (>60) mL/min BUN/Creatinine Ratio 21.8 (6-22) Glucose 88 (80-110) mg/dL Calcium 8.7 (8.4-10.2) mg/dL Total Bilirubin 1.5 H (0.2-1.3) mg/dL AST 27 (17-59) IU/L ALT 34 (21-72) IU/L Alkaline Phosphatase 83 (38-126) U/L Total Creatine Kinase 53 L (55-170) U/L CK-MB (CK-2) TNP CK-MB (CK-2) Rel Index TNP Troponin I 0.075 H (0.01-0.034) ng/mL Total Protein 6.3 (6.3-8.2) g/dL Albumin 3.5 (3.5-5.0) g/dL Globulin 2.8 (1.7-4.1) g/dL Albumin/Globulin Ratio 1.3 (1.0-2.8) Lipase 161 (23-300) U/L // Range/Units 16:02 WBC (4.5-11.0) X10^3/uL RBC (4.5-5.9) X10^6/uL Hgb (13.5-17.5) g/dL Hct (41-53) % MCV (80-100) fL MCH (26-34) PG MCHC (30-36) % RDW (11.6-14.8) % Plt Count (150-400) X10^3/uL Neut % (Auto) (50-75) % Lymph % (Auto) (25-40) % Dunn % (Auto) (3-14) % Eos % (Auto) (2-4) % Baso % (Auto) (0-2) % Neut # (Auto) (7250-1105) /uL Lymph # (Auto) (8443-1964) /uL Dunn # (Auto) (0-900) /uL Eos # (Auto) (0-450) /uL Baso # (Auto) (0-100) /uL PT (10.1-12.7) SECONDS INR (0.9-1.3) APTT (26.4-36.2) SECONDS Sodium (137-145) mmol/L Potassium (3.4-5.1) mmol/L Chloride (98-107) mmol/L Carbon Dioxide (22-32) mmol/L BUN (9-20) mg/dL Creatinine (0.66-1.25) mg/dL Estimated GFR (>60) mL/min BUN/Creatinine Ratio (6-22) Glucose (80-110) mg/dL Calcium (8.4-10.2) mg/dL Total Bilirubin (0.2-1.3) mg/dL AST (17-59) IU/L ALT (21-72) IU/L Alkaline Phosphatase (38-126) U/L Total Creatine Kinase 42 L (55-170) U/L CK-MB (CK-2) TNP CK-MB (CK-2) Rel Index TNP Troponin I 0.067 H (0.01-0.034) ng/mL Total Protein (6.3-8.2) g/dL Albumin (3.5-5.0) g/dL Globulin (1.7-4.1) g/dL Albumin/Globulin Ratio (1.0-2.8) Lipase (23-300) U/L Imaging Data Chest x-ray: Radiologist's impression: Hilario Lopez [address] [address] XRay Report Signed Patient: Hilario Lopez#: [id number] : 6Acct:[id number] Age/Sex: 82 / MDate of Service: 08/04/18 Loc: ED Accession Number: [id number] Procedure: XR chest 1V Ordering Provider: Josee Vásquez D.O. PROCEDURE: XR CHEST 1V INDICATIONS: chest pain TECHNIQUE: One view of the chest was acquired. COMPARISON: [facility], XR CHEST 1V, 07/26/2018, 8:04. FINDINGS: Surgical changes and devices: A left-sided cardiac pacer/defibrillator apparatus is identified. Median sternotomy changes are noted. Lungs and pleura: Lungs are clear. No pleural effusions or pneumothorax. Aeration of the lungs is similar to the prior study. Mediastinum: Mediastinal contours appear normal. Heart size is normal. There is aortic atherosclerosis. Bones and chest wall: No suspicious bony lesions. Overlying soft tissues appear unremarkable. IMPRESSION: Stable chest. No acute cardiopulmonary process is evident. Dictated by: Dashawn Claros M.D. on 08/04/2018 at 10:52 Approved by: Dashawn Claros M.D. on 08/04/2018 at 10:53 US - abdomen: Radiologist's impression: Hilario Lopez M 1935 [place] [address] Ultrasound Report Signed Patient: Hilario LopezMR#: [id number] : 1935cct:[id number] Age/Sex: 82 / MDate of Service: 08/04/18 Loc: ED Accession Number: [id number] Procedure: US abdomen complete Ordering Provider: Josee Vásquez D.O. PROCEDURE: US ABDOMEN COMPLETE INDICATIONS: ABDOMINAL / CHEST PAIN TECHNIQUE: Real-time scanning was performed of the abdominal and retroperitoneal organs, with image documentation. COMPARISON: NM, PET/CT NECK TO MID THIGH, 11/19/2011, 13:42. [facility], , XR CHEST 1V, 07/26/2018, 8:04. [facility], ABDOMEN COMPLETE, 05/18/2010, 10:57. FINDINGS: Liver: There is poor visualization of the left hepatic lobe due to midline bowel gas. The imaged right hepatic lobe appears unremarkable, with sagittal diameter of 14.1 cm. Gallbladder: Absent. Biliary ducts: Intrahepatic bile ducts are non-dilated. The proximal common bile duct caliber measures 4 mm. The mid and distal common bile duct are obscured by ov erlying bowel gas. Pancreas: Visualized portions of the pancreatic head are sonographically norm al. Remainder of the pancreas is obscured by overlying bowel gas. Spleen: Spleen is normal in size (9.7 cm) and homogeneous in echotexture. Kidneys: Kidneys are normal in size and echotexture. Right kidney measures 8.5 cm long; left kidney measures 9.9 cm long. No hydronephrosis or nephrolithiasis. Aorta: The imaged proximal abdominal aorta measures 2.2 cm. Imaged mid abdominal aorta measures 2.1 cm. Imaged distal abdominal aorta measures 1.2 cm. Iliacs: Proximal common iliac arteries are obscured by overlying bowel gas. IVC: Intrahepatic inferior vena cava is poorly visualized but appears patent. Miscellaneous: No free abdominal fluid. IMPRESSION: Suboptimal exam due to overlying bowel gas, which partially obscures areas of abdominal anatomy as described above. Within this context, no ultrasound findings are identified to explain patient's reported abdominal/chest pain. Dictated by: Rick Llanes M.D. on 08/04/2018 at 16:17 Approved by: Rick Llanes M.D. on 08/04/2018 at 16:41 ECG Data Attestation: I personally reviewed and interpreted this ECG as follows: Prior ECG tracings: available for review Interpretation: Patient has multiple EKGs from 04/04, patient has atrial paced rhythm intermittently. 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 Patient has a rate of 69 APR interval at 2:43 a.m. QRS of 118 and QTC of 376. Patient does appear to have some T-wave depression in V4 5 and 6. No elevation is appreciated patient does have a PVC in V2 V3. In comparison to prior from his returns clerk from 04/04/2018 EKG appears fairly similar in ST segments except for artifact from PVC. Patient had repeat EKG in the department which continues to show multiple PVCs. On EKG 2. He has a rate of 72 which the majority is paced, AL interval is 248, QRS is [address] segments a continued appears similar to prior EKG today. MDM Narrative Medical decision making narrative: I discussed with patient his 1st troponin is in the indeterminate range. He is hemoglobin is slightly elevated, he has thrombocytopenia. His bilirubin is slightly elevated ultrasound was obtained were not able to visualize all of the organs in their entirety but no acute changes were noted and patient is nontender to palpation. patient does not have a white count, his electrolytes show his chloride is elevated at 111, bicarb was 20 with a BUN of 24, normal range creatinine. Repeat troponin shows improvement but still in the indeterminate range. Discussed with patient he does not wish to be hospitalized and prefers to go home. He is aware of any potential cardiac risks but feels that he would prefer to be at home. He does state that if he were to have a massive heart attack or his heart were to stop working he would not want to be restarted. His daughter was also contacted by social work and she is actively helping to reestablish their caregivers come as they were fired by the patient and his . Daughter lives here 6 months out of the year and will be back in town within the week. She has also ordered all of his medications. I spoke with her she is aware of her father's wishes and is comfortable with them. She is comfortable with him returning and is aware that we cannot completely rule out a cardiac cause for his symptoms. while here in the department patient's blood pressure, heart rate and oxygenation have been appropriate. Discharge Plan Departure Patient Disposition: Home Clinical Impression: Atypical chest pain Discharge Date/Time: 08/04/18 17:35 Interventions: ED Discharge Assessment Last Done: 08/04/18 17:31 Instructions: DI for Chest Pain Activity Restrictions/Additional Instructions: Follow up with either your primary care or your returns clerk in the next week. Call for an appointment. As discussed your labs today show your heart enzyme is elevated but indeterminate which does not exclude a cardiac cause for your chest pain. I also discussed this with your daughter. I do recommend restarting all of your home medications and taking them as prescribed. Return to the emergency department for fevers greater than 100.4, recurrent chest pain, new shortness of breath, lightheadedness or passing-out, new weakness, persistent vomiting or other new or concerning symptoms. Prescriptions: No Action nitroglycerin [Nitrostat] 0.4 MG tablet, sublingual 0.4 mg Sublingual PRN PRN (Reason: Chest Pain) Qty: 0 RF: 0 buspirone 5 mg Tablet 1.25 mg PO BEDTIME RF: 0 atorvastatin 80 mg Tablet 80 mg PO DAILY RF: 0 carvedilol 12.5 mg Tablet 12.5 mg PO BID RF: 0 donepezil [Aricept] 10 mg Tablet 10 mg PO BEDTIME RF: 0 hydralazine 25 mg Tablet 25 mg PO BID RF: 0 clopidogrel [Plavix] 75 mg Tablet 75 mg PO DAILY RF: 0 meloxicam 7.5 mg Tablet 7.5 mg PO DAILY RF: 0 flaxseed oil 1,000 mg Capsule 2,000 mg PO DAILY RF: 0 pantoprazole 40 mg Tablet,Delayed Release (Dr/Ec) 40 mg PO DAILY RF: 0 gabapentin 100 mg Capsule 100 - 300 mg PO BEDTIME RF: 0 sertraline [Zoloft] 50 mg Tablet 50 mg PO DAILY RF: 0 cholecalciferol (vitamin D3) [Vitamin D3] 1,000 unit Tablet 1,000 unit PO DAILY RF: 0 acetazolamide 500 mg Capsule, Extended Release 500 mg PO BID RF: 0 latanoprost 0.005 % Drops 1 drp EYE-BOTH BEDTIME RF: 0 magnesium oxide 420 mg Tablet 420 mg PO DAILY RF: 0 ketoconazole 2 % Shampoo 1 applic TOPICAL DIRECTED RF: 0 isosorbide mononitrate 30 mg Tablet Extended Release 24 Hr 30 mg PO DAILY RF: 0 tramadol 50 mg Tablet 50 mg PO TID PRN (Reason: pain) RF: 0 timolol 0.5 % Drops 1 drp EYE-LEFT BID RF: 0 nortriptyline 10 mg Capsule 10 mg PO BEDTIME RF: 0 brimonidine 0.2 % Drops 1 drp EYE-LEFT QPM RF: 0 mirtazapine 15 mg Tablet 7.5 mg PO BEDTIME RF: 0 multivitamin with minerals Tablet 1 tab PO DAILY RF: 0 ketoconazole 2 % Cream 1 applic TOPICAL BID PRN (Reason: active red rash) RF: 0 dorzolamide 2 % Drops 1 drp EYE-LEFT BID RF: 0 moxifloxacin 0.5 % Drops 1 drp ophthalmic (eye) QID RF: 0 Rhopressa 0.02 % Drops 1 drp EYE-LEFT BEDTIME RF: 0 Referrals: Brooke Medina MD [Physician] - Odessa Cuba MD [Physician] -
[2018-08-04 14:00] LABS: Add Manual Diff / Slide Review NO; Basophils Absolute Auto 0 /uL (0-100); Basophils Percent Auto 0.3 % (0-2); Eosinophils Absolute Auto 0 /uL (0-450); Eosinophils Percent Auto 0.5 % (2-4); Hematocrit 53.3 % (41-53); Hemoglobin 17.8 g/dL (13.5-17.5); Lymphocytes Absolute Auto 1200 /uL (1100-4500); Mean Corpuscular HGB Conc 33.4 % (30-36); Mean Corpuscular Hemoglobin 30.6 PG (26-34); Mean Corpuscular Volume 91.6 fL (80-100); Monocytes Absolute Auto 500 /uL (0-900); Monocytes Percent Auto 6.5 % (3-14); Neutrophils Absolute Auto 6100 /uL (1500-7000); Neutrophils Percent Auto 77.7 % (50-75); Platelet Count 91 X10^3/uL (150-400); Red Blood Cell Count 5.83 X10^6/uL (4.5-5.9); Red Cell Distribution Width 14.6 % (11.6-14.8); White Blood Cell Count 7.8 X10^3/uL (4.5-11.0)
[2018-08-04 14:08] LABS: INR 1.1 (0.9-1.3); Prothrombin Time 12.3 SECONDS (10.1-12.7)
[2018-08-04 14:10] LABS: PTT Partial Thromboplastin Tim 32 SECONDS (26.4-36.2)
[2018-08-04 14:12] LABS: Alanine Aminotransferase 34 IU/L (21-72); Albumin 3.5 g/dL (3.5-5.0); Albumin Globulin Ratio 1.3 (1.0-2.8); Alkaline Phosphatase 83 U/L (38-126); Aspartate Aminotransferase 27 IU/L (17-59); BUN Creatinine Ratio 21.8 (6-22); Bilirubin Total 1.5 mg/dL (0.2-1.3); Blood Urea Nitrogen 24 mg/dL (9-20); Calcium 8.7 mg/dL (8.4-10.2); Carbon Dioxide 20 mmol/L (22-32); Chloride 111 mmol/L (98-107); Creatine Kinase 53 U/L (55-170); Estimated Glomerular Filt Rate > 60.0 mL/min (>60); Globulin 2.8 g/dL (1.7-4.1); Glucose 88 mg/dL (80-110); HEMOLYSIS 31 (0-50); Lipase 161 U/L (23-300); Sodium 141 mmol/L (137-145); Total Protein 6.3 g/dL (6.3-8.2)
[2018-08-04 14:24] LABS: Troponin I 0.075 ng/mL (0.01-0.034)
--- NOTE | 2018-08-04 14:28 | PC.NURSE ---
Both patient and his appear frail and with poor memories. Asked social work to evaluate for safety at home.
--- NOTE | 2018-08-04 15:01 | DI.US.S_ITS ---
PROCEDURE: US ABDOMEN COMPLETE INDICATIONS: ABDOMINAL / CHEST PAIN TECHNIQUE: Real-time scanning was performed of the abdominal and retroperitoneal organs, with image documentation. COMPARISON: NM, PET/CT NECK TO MID THIGH, 11/19/2011, 13:42. [facility], CR, XR CHEST 1V, 07/26/2018, 8:04. [facility], US, ABDOMEN COMPLETE, 05/18/2010, 10:57. FINDINGS: Liver: There is poor visualization of the left hepatic lobe due to midline bowel gas. The imaged right hepatic lobe appears unremarkable, with sagittal diameter of 14.1 cm. Gallbladder: Absent. Biliary ducts: Intrahepatic bile ducts are non-dilated. The proximal common bile duct caliber measures 4 mm. The mid and distal common bile duct are obscured by overlying bowel gas. Pancreas: Visualized portions of the pancreatic head are sonographically normal. Remainder of the pancreas is obscured by overlying bowel gas. Spleen: Spleen is normal in size (9.7 cm) and homogeneous in echotexture. Kidneys: Kidneys are normal in size and echotexture. Right kidney measures 8.5 cm long; left kidney measures 9.9 cm long. No hydronephrosis or nephrolithiasis. Aorta: The imaged proximal abdominal aorta measures 2.2 cm. Imaged mid abdominal aorta measures 2.1 cm. Imaged distal abdominal aorta measures 1.2 cm. Iliacs: Proximal common iliac arteries are obscured by overlying bowel gas. IVC: Intrahepatic inferior vena cava is poorly visualized but appears patent. Miscellaneous: No free abdominal fluid. IMPRESSION: Suboptimal exam due to overlying bowel gas, which partially obscures areas of abdominal anatomy as described above. Within this context, no ultrasound findings are identified to explain patient's reported abdominal/chest pain. Dictated by: Rick Llanes M.D. on 08/04/2018 at 16:17 Approved by: Rick Llanes M.D. on 08/04/2018 at 16:41
--- NOTE | 2018-08-04 15:46 | CM.SWNOTE ---
Description: CNA GNA Request from ED Provider Activity: See assessment below. Pt will be discharged back home to the care of his . His daughter will f/u tonight to discuss coordination of hiring in-home care, and she is actively coordinating with pt's P[facility] and [facility] re: obtaining more care assistance and monitoring. His PCP is aware that he has not been taking his medications as directed, and thus the dtr has switched pharmacies from the local [facility], to having [facility]. will assist pt with setting up his meds when they arrive. ED provider, Dr. Vásquez, was updated re: status and plan for discharge.
[2018-08-04 16:21] LABS: Creatine Kinase 42 U/L (55-170)
[2018-08-04 16:34] LABS: Troponin I 0.067 ng/mL (0.01-0.034)
== END 2018-08-04 17:35 | disposition home or self-care (01) ==
PROVIDERS: Emergency Provider Emergency Medicine
DX: R07.89 Other chest pain (principal)
CPT/HCPCS: 36415; 36591; 71045; 76700; 80053; 82550; 83690; 84484; 85025; 85610; 85730; 93005; 99285

== ENCOUNTER → 2018-09-20 15:59 | Outpatient (CLI) | payer MEDICARE, OTHER, SELFPAY ==
--- NOTE | 2018-09-20 | DI.ECHO.S_ITS ---
[facility]---------+ [facility] +---------+ : : [address] : [address] : : : : [id number] : : : : Phone: [phone] Echocardiogram Report + + :Name: PAUL NELSON Study Date: 09/20/2018 Height: 67 in : :[facility] Exam Location: [facility] Weight: 130 lb : : Gender: Male BSA: 1.7 m2 : :: 1935 Age: 82 yrs BP: 130/80 mmHg: :Reason For Study: CAD : :Ordering Physician: Odessa Cuba Performed By: Anastasiia Page : + + Interpretation Summary 1) Normal left ventricular size and thickness with moderately-severely reduced function (EF 30-35%). 2) There is akinesis in the area supplied by the mid and distal LAD c/w prior anteroapical infarct. 3) Normal right ventricular size with low normal function. AICD lead visualized in the RV. 4) The aortic valve is bicuspid. 5) Mild to moderate aortic stenosis present (mean gradient 54mmHg, valve area 1.4cm2, severity ratio 0.39). There is mild aortic regurgitation. 6) There is borderline mitral valve prolapse. There is mild mitral regurgitation. 7) Compared to the Echo done 07/07/2015, no significant change. Procedure: A two-dimensional transthoracic echocardiogram with color flow and Doppler was performed. The study quality was technically adequate. Comparison is made with the echocardiogram of 07/07/2015. The heart rate ranged between 57-90 bpm during the study. Left Ventricle: The left ventricle is normal in size. Left ventricular wall thickness is normal. The ejection fraction is estimated to be 30-35%. There has been no significant change since the previous exam. There is akinesis in the area supplied by the mid and distal LAD c/w prior anteroapical infarct. Right Ventricle: The right ventricle is normal size. There is a AICD lead in the right ventricle. Right ventricular systolic function is at the lower limits of normal. Atria: The left atrium is moderately dilated. Right atrial size is normal. There is no Doppler evidence for an interatrial shunt. Mitral Valve: The mitral valve leaflets appear moderately thickened, but open well. There is borderline mitral valve prolapse. There is mild mitral regurgitation. Aortic Valve: The aortic valve is bicuspid. The aortic valve is mildly calcified. There is mild to moderate aortic stenosis. There is mild aortic regurgitation. Tricuspid Valve: The tricuspid valve is normal in structure and function. There is trace tricuspid regurgitation. Pulmonary artery pressures cannot be estimated because of the lack of a measurable TR jet velocity. Pulmonic Valve: The pulmonic valve is not well seen, but is grossly normal. There is a trace or physiologic amount of pulmonic regurgitation. Great Vessels: The aortic root is normal size. The ascending aorta is at the upper limits of normal in size. The pulmonary artery is not well visualized, but is probably normal size. The IVC is of normal diameter and collapses greater than 50% with a sniff. This suggests a low right atrial pressure of 3 mm Hg. Pericardium/ Pleura There is no pericardial effusion. There is no pleural effusion. MMode/2D Measurements & Calculations LVIDd: 5.2 cm LVOT diam: 2.2 cm LVIDs: 4.0 cm Ao root diam: 3.4 cm FS: 23.0 % asc Aorta Diam: 3.7 cm EPSS: 0.89 cm IVSd: 0.78 cm LVPWd: 1.0 cm LV clark. diameter/BSA (cm/m^2): 3.1 LV sys. diameter/BSA (cm/m^2): 2.4 LA A2 area: 22.5 cm2 RA long axis: 5.3 cm LA A4 area: 17.1 cm2 RA area: 17.8 cm2 LA length (vol): 4.6 cm RA vol: 50.8 ml LA vol: 71.0 ml RA : 30.2 ml/m2 LA vol index: 42.2 ml/m2 IVC diam: 1.5 cm RVD1 (basal): 4.0 cm RVD2 (mid): 2.7 cm Doppler Measurements & Calculations Ao V2 max: 158.7 cm/sec LVOT Max Donaldo: 58.3 cm/sec Ao V2 mean: 108.9 cm/sec LV V1 max P.4 mmHg Ao max P.1 mmHg LV V1 VTI: 11.5 cm Ao mean P.4 mmHg CHELSEA(I,D): 1.5 cm2 Ao V2 VTI: 29.6 cm CHELSEA(V,D): 1.4 cm2 sev ratio: 0.39 CHELSEA indexed to BSA (cm^2/m^2): 0.89 AI P1/2t: 610.8 msec AI dec slope: 161.5 cm/sec2 MV E max donaldo: 34.1 cm/sec PA V2 max: 50.4 cm/sec MV A max donaldo: 76.0 cm/sec PA V2 mean: 33.7 cm/sec MV E/A: 0.45 PA mean P.52 mmHg Med Peak E' Donaldo: 3.7 cm/sec PA Accel Time: 0.17 sec E/E' med: 9.2 Lat Peak E' Donaldo: 2.8 cm/sec E/E' lat: 12.2 E/e' average: 10.7 MV dec time: 0.23 sec MV P1/2t: 68.3 msec MV P1/2t max donaldo: 34.7 cm/sec SV(LVOT): 44.4 ml MVA(P1/2t): 3.2 cm2 Reading Physician:05:45 PM
== END ==
PROVIDERS: Visit Provider Internal Medicine
DX: I08.0 Rheumatic disorders of both mitral and aortic valves (principal); I25.10 Atherosclerotic heart disease of native coronary artery without angina pectoris
CPT/HCPCS: 93306

== ENCOUNTER 2018-09-24 11:35 | Inpatient (IN) | payer MEDICARE, OTHER, SELFPAY ==
[2018-09-24] VITALS (11 sets, daily range): BP systolic 102–157; BP diastolic 42–68; PULSE 66–90; RESP 12–23; TEMP 36.6–38.6; O2SAT 94–100; BMI 18.7
--- NOTE | 2018-09-24 11:42 | DI.RAD.S_ITS ---
PROCEDURE: XR CHEST 1V INDICATIONS: fever TECHNIQUE: One view of the chest was acquired. COMPARISON: [facility], CR, XR CHEST 1V, 08/04/2018, 11:32. FINDINGS: Surgical changes and devices: There is a left-sided cardiac pacer/defibrillator. Median sternotomy changes are present. Lungs and pleura: There has been interval development of vague airspace disease throughout the right lung, which is more prominent within the right upper lobe. No large effusion or pneumothorax. Mediastinum: Mediastinal contours appear normal. Heart size is normal. There is aortic atherosclerosis. Bones and chest wall: No suspicious bony lesions. Overlying soft tissues appear unremarkable. IMPRESSION: Right upper lobe pneumonia. Dictated by: Dashawn Claros M.D. on 09/24/2018 at 11:02 Approved by: Dashawn Claros M.D. on 09/24/2018 at 11:03
[2018-09-24] MEDS: SODIUM CHLORIDE 0.9% 1,000 ML 200 ML IV (11:45)
[2018-09-24 11:56] LABS: Add Manual Diff / Slide Review NO; Basophils Absolute Auto 100 /uL (0-100); Basophils Percent Auto 0.4 % (0-2); Eosinophils Absolute Auto 0 /uL (0-450); Eosinophils Percent Auto 0.1 % (2-4); Hematocrit 49.4 % (41-53); Hemoglobin 16.4 g/dL (13.5-17.5); Lymphocytes Absolute Auto 700 /uL (1100-4500); Lymphocytes Percent Auto 4.4 % (25-40); Mean Corpuscular HGB Conc 33.2 % (30-36); Mean Corpuscular Hemoglobin 30.1 PG (26-34); Mean Corpuscular Volume 90.7 fL (80-100); Monocytes Absolute Auto 1000 /uL (0-900); Monocytes Percent Auto 6.1 % (3-14); Neutrophils Absolute Auto 14500 /uL (1500-7000); Platelet Count 134 X10^3/uL (150-400); Red Blood Cell Count 5.45 X10^6/uL (4.5-5.9); Red Cell Distribution Width 14.6 % (11.6-14.8); White Blood Cell Count 16.3 X10^3/uL (4.5-11.0)
[2018-09-24 12:02] LABS: INR 1.1 (0.9-1.3); Prothrombin Time 12.3 SECONDS (10.1-12.7)
[2018-09-24 12:04] LABS: PTT Partial Thromboplastin Tim 28 SECONDS (26.4-36.2)
[2018-09-24 12:09] LABS: Alanine Aminotransferase 28 IU/L (21-72); Albumin 3.8 g/dL (3.5-5.0); Albumin Globulin Ratio 1.3 (1.0-2.8); Alkaline Phosphatase 100 U/L (38-126); Aspartate Aminotransferase 28 IU/L (17-59); Bilirubin Total 1.3 mg/dL (0.2-1.3); Blood Urea Nitrogen 20 mg/dL (9-20); Calcium 8.8 mg/dL (8.4-10.2); Carbon Dioxide 28 mmol/L (22-32); Chloride 100 mmol/L (98-107); Estimated Glomerular Filt Rate > 60.0 mL/min (>60); Globulin 2.9 g/dL (1.7-4.1); Glucose 113 mg/dL (80-110); HEMOLYSIS 27 (0-50); Potassium 4.1 mmol/L (3.4-5.1); Sodium 137 mmol/L (137-145); Total Protein 6.7 g/dL (6.3-8.2)
[2018-09-24 12:24] LABS: Procalcitonin 0.08 ng/mL (<0.5)
--- NOTE | 2018-09-24 12:38 | ED.WEAKNESS ---
HPI - Weakness General Chief complaint: Urogenital-Male Stated complaint: Fell, weakness/confusion Time Seen by Provider: 09/24/18 11:42 Source: patient and EMS Mode of arrival: ambulatory Limitations: no limitations History of Present Illness HPI Narrative: Patient is an 83-year-old male who presents with weakness. He slipped out of his chair trying to get to the bathroom. There was no head trauma no injury. No sign any abrasion. He has noted he has had some increased urination. He has a fever of 101. He is overall a poor historian at this time. Denies any pain no shortness of breath. He does have a history of AICD, not sure at this time why. Daughter now at bedside states that he actually does have CHF. Echocardiogram confirmed that he has an EF 30%. He overall does not have any respiratory symptoms. MD Complaint: generalized weakness Related Data Home Medications Medication Instructions Recorded Confirmed nitroglycerin [Nitrostat] 0.4 mg SUBLINGUAL PRN PRN #0 12/27/12 08/04/18 atorvastatin [Lipitor] 80 mg PO DAILY 07/26/18 09/24/18 buspirone 1.25 mg PO BEDTIME 07/26/18 08/04/18 carvedilol [Coreg] 12.5 mg PO BID 07/26/18 09/24/18 cholecalciferol (vitamin D3) 1,000 unit PO DAILY 07/26/18 08/04/18 [Vitamin D3] clopidogrel [Plavix] 75 mg PO DAILY 07/26/18 09/24/18 donepezil [Aricept] 10 mg PO BEDTIME 07/26/18 08/04/18 flaxseed oil 2,000 mg PO DAILY 07/26/18 08/04/18 gabapentin 100 - 300 mg PO BEDTIME 07/26/18 09/24/18 hydralazine 25 mg PO BID 07/26/18 09/24/18 meloxicam 7.5 mg PO DAILY 07/26/18 08/04/18 pantoprazole 40 mg PO DAILY 07/26/18 08/04/18 sertraline [Zoloft] 50 mg PO DAILY 07/26/18 08/04/18 acetazolamide 500 mg PO BID 08/04/18 09/13/18 brimonidine 1 drp EYE-LEFT QPM 08/04/18 08/04/18 dorzolamide 1 drp EYE-LEFT BID 08/04/18 08/04/18 isosorbide mononitrate 30 mg PO DAILY 08/04/18 09/24/18 ketoconazole 1 applic TOPICAL DIRECTED 08/04/18 08/04/18 ketoconazole 1 applic TOPICAL BID PRN 08/04/18 08/04/18 latanoprost 1 drp EYE-BOTH BEDTIME 08/04/18 09/13/18 magnesium oxide 420 mg PO DAILY 08/04/18 08/04/18 mirtazapine 7.5 mg PO BEDTIME 08/04/18 09/24/18 moxifloxacin 1 drp OPHTHALMIC (EYE) QID 08/04/18 08/04/18 multivitamin with minerals 1 tab PO DAILY 08/04/18 08/04/18 netarsudil [Rhopressa] 1 drp EYE-LEFT BEDTIME 08/04/18 08/04/18 nortriptyline 10 mg PO BEDTIME 08/04/18 09/13/18 timolol 1 drp EYE-LEFT BID 08/04/18 08/04/18 tramadol 50 mg PO TID PRN 08/04/18 09/24/18 Allergies Allergy/AdvReac Type Severity Reaction Status Date / Time No Known Drug Allergies Allergy Verified 08/04/18 11:28 Review of Systems Review of Systems ROS Unobtainable: All systems reviewed & are unremarkable except as noted in HPI and below Constitutional Reports fever(s), Denies frequent falls and Reports lethargy ENT Ears, Nose, Mouth, and Throat: Denies change in voice, Denies dizziness, Denies neck pain and Denies sore throat Cardiovascular Denies chest pain, Denies irregular heart rhythm, Denies lightheadedness, Denies palpitations, Denies dyspnea, Denies dyspnea on exertion and Denies orthopnea Respiratory Denies cough, Denies dyspnea, Denies dyspnea on exertion and Denies wheezing Gastrointestinal Gastrointestinal: Denies abdominal pain, Denies change in bowel habits, Denies diarrhea, Denies nausea and Denies vomiting Genitourinary Denies hematuria, Denies flank pain, Reports urinary incontinence and Reports urinary urgency Musculoskeletal Denies neck pain and Denies numbness Integumentary/Breasts Denies pruritus, Denies erythema, Denies rash and Denies wounds Neurologic Denies behavioral changes, Denies confusion, Denies dizziness, Denies frequent falls and Denies numbness Psychiatric Denies behavioral changes and Denies confusion Endocrine Denies palpitations Allergic/Immunologic Denies wheezing [facility] Medical History CRVO (central retinal vein occlusion) (Acute) Dementia (Acute) HTN (hypertension) (Acute) TIA (transient ischemic attack) (Acute) AAA (abdominal aortic aneurysm) (Chronic) Atrial fibrillation (Chronic) Bilateral renal artery stenosis (Chronic) Dyslipidemia (Chronic) Peripheral vascular disease (Chronic) Thrombocytopenia (Chronic) Intracerebral bleed (Resolved) Surgical History AICD (automatic cardioverter/defibrillator) present (Chronic) 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) Social History (Updated 09/13/18 @ 13:27 by Akua Mosher LPN) marital status: household members: spouse occupational status: previously employed Smoking Status: Current every day smoker alcohol intake: never Social History marital status: household members: spouse occupational status: previously employed Smoking Status: Current every day smoker alcohol intake: never Exam Initial Vital Signs Initial Vital Signs: Vital Signs Pulse Rate 90 09/24/18 12:02 Respiratory Rate 23 09/24/18 12:02 Blood Pressure 132/63 09/24/18 12:02 Pulse Oximetry 96 09/24/18 12:02 GENERAL: Elderly male pleasantly confused week HEENT: Head atraumatic,EOMI, pupils reactive, face symmetric, Neck is supple CARDIOVASCULAR: Regular rate and rhythm without murmurs, rubs or gallops. RESPIRATORY: Breath sounds equal bilaterally, no wheezes rales or rhonchi. ABDOMEN: Soft, nontender. Normoactive bowel sounds all 4 quadrants. No guarding or rebound. : No CVA tenderness EXTREMITIES: Normal range of motion, no clubbing or edema. Neurovascularly intact. Right BKA NEUROLOGICAL: Alert and oriented x4.Normal gait and speech. Cranial nerves II through XII grossly intact. SKIN: Warm, dry, no laceration, no petechiae, no rashes or lesions. Course Orders Ordered: ED Orders 09/24/18 11:22 B Type Natriuretic Peptide Stat Complete Blood Count AUTO DIFF Stat Comprehensive Metabolic Panel Stat Partial Thromboplastin Time Stat Procalcitonin Stat Prothrombin Time INR Stat 09/24/18 11:42 XR chest 1V Stat 09/24/18 11:45 EKG-12 Lead Stat 09/24/18 12:50 Lactate (Lactic Acid) Stat 09/24/18 13:10 Blood Culture Stat Urinalysis and Microscopic Stat Urine Culture Stat 09/24/18 15:35 Respiratory Panel (Film Array) Stat Sodium Chloride (Normal Saline 0.9%) 1,000 mls @ 200 mls/hr IV CONT SUSAN Last Infusion: 09/24/18 16:13 Dose: 0 mls/hr Admin: 09/24/18 11:45 Dose: 200 mls/hr Discontinued Medications Acetaminophen (Tylenol) 975 mg PO NOW ONE Stop: 09/24/18 11:44 Last Admin: 09/24/18 13:00 Dose: 975 mg Ceftriaxone Sodium/Dextrose (Rocephin) 1 gm in 50 mls @ 100 mls/hr IV NOW ONE Stop: 09/24/18 13:55 Last Infusion: 09/24/18 14:26 Dose: 0 mls/hr Admin: 09/24/18 13:44 Dose: 100 mls/hr Azithromycin 500 mg/ Dextrose 250 mls @ 250 mls/hr IV NOW ONE Stop: 09/24/18 14:10 Last Infusion: 09/24/18 15:51 Dose: 250 mls/hr Admin: 09/24/18 14:42 Dose: 250 mls/hr Vital Signs - 8 hr 09/24/18 12:02 09/24/18 12:33 09/24/18 13:00 Temperature 101.4 F H Pulse Rate 90 76 Respiratory Rate 23 19 Blood Pressure Blood Pressure [Right Arm] 132/63 114/44 L Pulse Oximetry 96 97 09/24/18 13:30 09/24/18 13:36 09/24/18 14:06 Temperature 101.4 F H 101.4 F H Pulse Rate 76 81 78 Respiratory Rate 19 20 17 Blood Pressure 119/42 L 108/48 L Blood Pressure [Right Arm] 157/68 H Pulse Oximetry 97 96 100 09/24/18 14:45 09/24/18 15:48 Temperature 98.8 F Pulse Rate 75 69 Respiratory Rate 17 17 Blood Pressure Blood Pressure [Right Arm] 102/51 L 103/49 L Pulse Oximetry 95 95 MDM - Weakness Lab Data Attestation: I reviewed the patient's lab results. Result diagrams: 09/24/18 11:22 09/24/18 11:22 Lab Results 09/24/18 09/24/18 09/24/18 Range/Units 11:22 11:22 11:22 WBC 16.3 H (4.5-11.0) X10^3/uL RBC 5.45 (4.5-5.9) X10^6/uL Hgb 16.4 (13.5-17.5) g/dL Hct 49.4 (41-53) % MCV 90.7 (80-100) fL MCH 30.1 (26-34) PG MCHC 33.2 (30-36) % RDW 14.6 (11.6-14.8) % Plt Count 134 L (150-400) X10^3/uL Neut % (Auto) 89.0 H (50-75) % Lymph % (Auto) 4.4 L (25-40) % Dade % (Auto) 6.1 (3-14) % Eos % (Auto) 0.1 L (2-4) % Baso % (Auto) 0.4 (0-2) % Neut # (Auto) 11259 H (1366-0814) /uL Lymph # (Auto) 700 L (1321-3959) /uL Dade # (Auto) 1000 H (0-900) /uL Eos # (Auto) 0 (0-450) /uL Baso # (Auto) 100 (0-100) /uL PT 12.3 (10.1-12.7) SECONDS INR 1.1 (0.9-1.3) APTT 28 D (26.4-36.2) SECONDS Sodium (137-145) mmol/L Potassium (3.4-5.1) mmol/L Chloride (98-107) mmol/L Carbon Dioxide (22-32) mmol/L BUN (9-20) mg/dL Creatinine (0.66-1.25) mg/dL Estimated GFR (>60) mL/min BUN/Creatinine Ratio (6-22) Glucose (80-110) mg/dL Lactate (0.7-2.1) mmol/L Calcium (8.4-10.2) mg/dL Total Bilirubin (0.2-1.3) mg/dL AST (17-59) IU/L ALT (21-72) IU/L Alkaline Phosphatase (38-126) U/L B-Natriuretic Peptide (<100) Total Protein (6.3-8.2) g/dL Albumin (3.5-5.0) g/dL Globulin (1.7-4.1) g/dL Albumin/Globulin Ratio (1.0-2.8) Procalcitonin 0.08 (<0.5) ng/mL Urine Color Urine Appearance Urine pH (4.5-8.0) Ur Specific Josephine (1.000-1.035) Urine Protein (Negative) Urine Glucose (UA) (Negative) g/dL Urine Ketones (NEGATIVE) Urine Occult Blood (Negative) Urine Nitrate (Negative) Urine Bilirubin (NEGATIVE) Urine Urobilinogen (0.2) E.U./dL Ur Leukocyte Esterase (NEGATIVE) Urine RBC (0-5/HPF) Urine WBC (0-5/HPF) Ur Squamous Epith Cells (0-5/HPF) Amorphous Sediment Urine Bacteria (None) Ur Culture Indicated? 09/24/18 09/24/18 09/24/18 Range/Units 11:22 11:22 12:50 WBC (4.5-11.0) X10^3/uL RBC (4.5-5.9) X10^6/uL Hgb (13.5-17.5) g/dL Hct (41-53) % MCV (80-100) fL MCH (26-34) PG MCHC (30-36) % RDW (11.6-14.8) % Plt Count (150-400) X10^3/uL Neut % (Auto) (50-75) % Lymph % (Auto) (25-40) % Dade % (Auto) (3-14) % Eos % (Auto) (2-4) % Baso % (Auto) (0-2) % Neut # (Auto) (3828-1061) /uL Lymph # (Auto) (8104-3254) /uL Dade # (Auto) (0-900) /uL Eos # (Auto) (0-450) /uL Baso # (Auto) (0-100) /uL PT (10.1-12.7) SECONDS INR (0.9-1.3) APTT (26.4-36.2) SECONDS Sodium 137 (137-145) mmol/L Potassium 4.1 (3.4-5.1) mmol/L Chloride 100 (98-107) mmol/L Carbon Dioxide 28 (22-32) mmol/L BUN 20 (9-20) mg/dL Creatinine 0.80 (0.66-1.25) mg/dL Estimated GFR > 60.0 (>60) mL/min BUN/Creatinine Ratio 25.0 H (6-22) Glucose 113 H (80-110) mg/dL Lactate 1.6 (0.7-2.1) mmol/L Calcium 8.8 (8.4-10.2) mg/dL Total Bilirubin 1.3 (0.2-1.3) mg/dL AST 28 (17-59) IU/L ALT 28 (21-72) IU/L Alkaline Phosphatase 100 (38-126) U/L B-Natriuretic Peptide 274 H (<100) Total Protein 6.7 (6.3-8.2) g/dL Albumin 3.8 (3.5-5.0) g/dL Globulin 2.9 (1.7-4.1) g/dL Albumin/Globulin Ratio 1.3 (1.0-2.8) Procalcitonin (<0.5) ng/mL Urine Color Urine Appearance Urine pH (4.5-8.0) Ur Specific Josephine (1.000-1.035) Urine Protein (Negative) Urine Glucose (UA) (Negative) g/dL Urine Ketones (NEGATIVE) Urine Occult Blood (Negative) Urine Nitrate (Negative) Urine Bilirubin (NEGATIVE) Urine Urobilinogen (0.2) E.U./dL Ur Leukocyte Esterase (NEGATIVE) Urine RBC (0-5/HPF) Urine WBC (0-5/HPF) Ur Squamous Epith Cells (0-5/HPF) Amorphous Sediment Urine Bacteria (None) Ur Culture Indicated? 09/24/18 Range/Units 13:10 WBC (4.5-11.0) X10^3/uL RBC (4.5-5.9) X10^6/uL Hgb (13.5-17.5) g/dL Hct (41-53) % MCV (80-100) fL MCH (26-34) PG MCHC (30-36) % RDW (11.6-14.8) % Plt Count (150-400) X10^3/uL Neut % (Auto) (50-75) % Lymph % (Auto) (25-40) % Dade % (Auto) (3-14) % Eos % (Auto) (2-4) % Baso % (Auto) (0-2) % Neut # (Auto) (0747-5089) /uL Lymph # (Auto) (5651-8185) /uL Dade # (Auto) (0-900) /uL Eos # (Auto) (0-450) /uL Baso # (Auto) (0-100) /uL PT (10.1-12.7) SECONDS INR (0.9-1.3) APTT (26.4-36.2) SECONDS Sodium (137-145) mmol/L Potassium (3.4-5.1) mmol/L Chloride (98-107) mmol/L Carbon Dioxide (22-32) mmol/L BUN (9-20) mg/dL Creatinine (0.66-1.25) mg/dL Estimated GFR (>60) mL/min BUN/Creatinine Ratio (6-22) Glucose (80-110) mg/dL Lactate (0.7-2.1) mmol/L Calcium (8.4-10.2) mg/dL Total Bilirubin (0.2-1.3) mg/dL AST (17-59) IU/L ALT (21-72) IU/L Alkaline Phosphatase (38-126) U/L B-Natriuretic Peptide (<100) Total Protein (6.3-8.2) g/dL Albumin (3.5-5.0) g/dL Globulin (1.7-4.1) g/dL Albumin/Globulin Ratio (1.0-2.8) Procalcitonin (<0.5) ng/mL Urine Color Other Urine Appearance Cloudy Urine pH 7.0 (4.5-8.0) Ur Specific Josephine 1.020 (1.000-1.035) Urine Protein 1+ H (Negative) Urine Glucose (UA) Negative (Negative) g/dL Urine Ketones Negative (NEGATIVE) Urine Occult Blood 3+ H (Negative) Urine Nitrate Negative (Negative) Urine Bilirubin Negative (NEGATIVE) Urine Urobilinogen 0.2 (0.2) E.U./dL Ur Leukocyte Esterase Trace H (NEGATIVE) Urine RBC >100/hpf (0-5/HPF) Urine WBC 1-5/hpf (0-5/HPF) Ur Squamous Epith Cells 0-1 /hpf (0-5/HPF) Amorphous Sediment 1+ Urine Bacteria Occasional (0-1) (None) Ur Culture Indicated? Specimen cultured Imaging Data Chest x-ray: Radiologist's impression: PROCEDURE: XR CHEST 1V INDICATIONS: fever TECHNIQUE: One view of the chest was acquired. COMPARISON: [facility], , XR CHEST 1V, 08/04/2018, 11:32. FINDINGS: Surgical changes and devices: There is a left-sided cardiac pacer/defibrillator. Median sternotomy changes are present. Lungs and pleura: There has been interval development of vague airspace disease throughout the right lung, which is more prominent within the right upper lobe. No large effusion or pneumothorax. Mediastinum: Mediastinal contours appear normal. Heart size is normal. There is aortic atherosclerosis. Bones and chest wall: No suspicious bony lesions. Overlying soft tissues appear unremarkable. IMPRESSION: Right upper lobe pneumonia. Dictated by: Dashawn Claros M.D. on 09/24/2018 at 11:02 ECG Data Attestation: I personally reviewed and interpreted this ECG as follows: Prior ECG tracings: available for review Interpretation: Paced rhythm rate [address] changes MDM Narrative Medical decision making narrative: According to daughter patient is failing at home. He is becoming more difficult to be cared for and resisting any sort of care. He has a fever leukocytosis and pneumonia on x-ray. Daughter has not noticed any cough. Patient was also noted to have about 400 mL in bladder Frazier catheter was placed. Gross hematuria came out. With irrigated easily with about 500 cc of fluid and is now pink. Dr. Jones accepts patient Discharge Plan Departure Patient Disposition: Admitted As Inpatient Clinical Impression: Pneumonia Qualifiers: Pneumonia type: due to unspecified organism Laterality: right Lung location: upper lobe of lung Qualified Code(s): J18.1 - Lobar pneumonia, unspecified organism Interventions: ED Discharge Assessment Last Done: 09/24/18 14:06 Admit Date/Time: 09/24/18 15:53 Admit Provider: Shannan Jones
--- NOTE | 2018-09-24 12:41 | ED_ITS ---
HPI - Weakness General Chief complaint: Urogenital-Male Stated complaint: Fell, weakness/confusion Time Seen by Provider: 09/24/18 11:42 Source: patient and EMS Mode of arrival: ambulatory Limitations: no limitations History of Present Illness HPI Narrative: Patient is an 83-year-old male who presents with weakness. He slipped out of his chair trying to get to the bathroom. There was no head trauma no injury. No sign any abrasion. He has noted he has had some increased urination. He has a fever of 101. He is overall a poor historian at this time. Denies any pain no shortness of breath. He does have a history of AICD, not sure at this time why. Daughter now at bedside states that he actually does have CHF. Echocardiogram confirmed that he has an EF 30%. He overall does not have any respiratory sym ptoms. MD Complaint: generalized weakness Related Data Home Medications Medication Instructions Recorded Confirmed nitroglycerin [Nitrostat] 0.4 mg SUBLINGUAL PRN PRN #0 12/27/12 08/04/18 atorvastatin [Lipitor] 80 mg PO DAILY 07/26/18 09/24/18 buspirone 1.25 mg PO BEDTIME 07/26/18 08/04/18 carvedilol [Coreg] 12.5 mg PO BID 07/26/18 09/24/18 cholecalciferol (vitamin D3) 1,000 unit PO DAILY 07/26/18 08/04/18 [Vitamin D3] clopidogrel [Plavix] 75 mg PO DAILY 07/26/18 09/24/18 donepezil [Aricept] 10 mg PO BEDTIME 07/26/18 08/04/18 flaxseed oil 2,000 mg PO DAILY 07/26/18 08/04/18 gabapentin 100 - 300 mg PO BEDTIME 07/26/18 09/24/18 hydralazine 25 mg PO BID 07/26/18 09/24/18 meloxicam 7.5 mg PO DAILY 07/26/18 08/04/18 pantoprazole 40 mg PO DAILY 07/26/18 08/04/18 sertraline [Zoloft] 50 mg PO DAILY 07/26/18 08/04/18 acetazolamide 500 mg PO BID 08/04/18 09/13/18 brimonidine 1 drp EYE-LEFT QPM 08/04/18 08/04/18 dorzolamide 1 drp EYE-LEFT BID 08/04/18 08/04/18 isosorbide mononitrate 30 mg PO DAILY 08/04/18 09/24/18 ketoconazole 1 applic TOPICAL DIRECTED 08/04/18 08/04/18 ketoconazole 1 applic TOPICAL BID PRN 08/04/18 08/04/18 latanoprost 1 drp EYE-BOTH BEDTIME 08/04/18 09/13/18 magnesium oxide 420 mg PO DAILY 08/04/18 08/04/18 mirtazapine 7.5 mg PO BEDTIME 08/04/18 09/24/18 moxifloxacin 1 drp OPHTHALMIC (EYE) QID 08/04/18 08/04/18 multivitamin with minerals 1 tab PO DAILY 08/04/18 08/04/18 netarsudil [Rhopressa] 1 drp EYE-LEFT BEDTIME 08/04/18 08/04/18 nortriptyline 10 mg PO BEDTIME 08/04/18 09/13/18 timolol 1 drp EYE-LEFT BID 08/04/18 08/04/18 tramadol 50 mg PO TID PRN 08/04/18 09/24/18 Allergies Allergy/AdvReac Type Severity Reaction Status Date / Time No Known Drug Allergies Allergy Verified 08/04/18 11:28 Review of Systems Review of Systems ROS Unobtainable: All systems reviewed & are unremarkable except as noted in HPI and below Constitutional Reports fever(s), Denies frequent falls and Reports lethargy ENT Ears, Nose, Mouth, and Throat: Denies change in voice, Denies dizziness, Denies neck pain and Denies sore throat Cardiovascular Denies chest pain, Denies irregular heart rhythm, Denies lightheadedness, Denies palpitations, Denies dyspnea, Denies dyspnea on exertion and Denies orthopnea Respiratory Denies cough, Denies dyspnea, Denies dyspnea on exertion and Denies wheezing Gastrointestinal Gastrointestinal: Denies abdominal pain, Denies change in bowel habits, Denies diarrhea, Denies nausea and Denies vomiting Genitourinary Denies hematuria, Denies flank pain, Reports urinary incontinence and Reports urinary urgency Musculoskeletal Denies neck pain and Denies numbness Integumentary/Breasts Denies pruritus, Denies erythema, Denies rash and Denies wounds Neurologic Denies behavioral changes, Denies confusion, Denies dizziness, Denies frequent falls and Denies numbness Psychiatric Denies behavioral changes and Denies confusion Endocrine Denies palpitations Allergic/Immunologic Denies wheezing [facility] Medical History CRVO (central retinal vein occlusion) (Acute) Dementia (Acute) HTN (hypertension) (Acute) TIA (transient ischemic attack) (Acute) AAA (abdominal aortic aneurysm) (Chronic) Atrial fibrillation (Chronic) Bilateral renal artery stenosis (Chronic) Dyslipidemia (Chronic) Peripheral vascular disease (Chronic) Thrombocytopenia (Chronic) Intracerebral bleed (Resolved) Surgical History AICD (automatic cardioverter/defibrillator) present (Chronic) 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) Social History (Updated 09/13/18 @ 13:27 by Akua Mosher LPN) marital status: household members: spouse occupational status: previously employed Smoking Status: Current every day smoker alcohol intake: never Social History marital status: household members: spouse occupational status: previously employed Smoking Status: Current every day smoker alcohol intake: never Exam Initial Vital Signs Initial Vital Signs: Vital Signs Pulse Rate 90 09/24/18 12:02 Respiratory Rate 23 09/24/18 12:02 Blood Pressure 132/63 09/24/18 12:02 Pulse Oximetry 96 09/24/18 12:02 GENERAL: Elderly male pleasantly confused week HEENT: Head atraumatic,EOMI, pupils reactive, face symmetric, Neck is supple CARDIOVASCULAR: Regular rate and rhythm without murmurs, rubs or gallops. RESPIRATORY: Breath sounds equal bilaterally, no wheezes rales or rhonchi. ABDOMEN: Soft, nontender. Normoactive bowel sounds all 4 quadrants. No guardin g or rebound. : No CVA tenderness EXTREMITIES: Normal range of motion, no clubbing or edema. Neurovascularly intact. Right BKA NEUROLOGICAL: Alert and oriented x4.Normal gait and speech. Cranial nerves II through XII grossly intact. SKIN: Warm, dry, no laceration, no petechiae, no rashes or lesions. Course Orders Ordered: ED Orders 09/24/18 11:22 B Type Natriuretic Peptide Stat Complete Blood Count AUTO DIFF Stat Comprehensive Metabolic Panel Stat Partial Thromboplastin Time Stat Procalcitonin Stat Prothrombin Time INR Stat 09/24/18 11:42 XR chest 1V Stat 09/24/18 11:45 EKG-12 Lead Stat 09/24/18 12:50 Lactate (Lactic Acid) Stat 09/24/18 13:10 Blood Culture Stat Urinalysis and Microscopic Stat Urine Culture Stat 09/24/18 15:35 Respiratory Panel (Film Array) Stat Sodium Chloride (Normal Saline 0.9%) 1,000 mls @ 200 mls/hr IV CONT SUSAN Last Infusion: 09/24/18 16:13 Dose: 0 mls/hr Admin: 09/24/18 11:45 Dose: 200 mls/hr Discontinued Medications Acetaminophen (Tylenol) 975 mg PO NOW ONE Stop: 09/24/18 11:44 Last Admin: 09/24/18 13:00 Dose: 975 mg Ceftriaxone Sodium/Dextrose (Rocephin) 1 gm in 50 mls @ 100 mls/hr IV NOW ONE Stop: 09/24/18 13:55 Last Infusion: 09/24/18 14:26 Dose: 0 mls/hr Admin: 09/24/18 13:44 Dose: 100 mls/hr Azithromycin 500 mg/ Dextrose 250 mls @ 250 mls/hr IV NOW ONE Stop: 09/24/18 14:10 Last Infusion: 09/24/18 15:51 Dose: 250 mls/hr Admin: 09/24/18 14:42 Dose: 250 mls/hr Vital Signs - 8 hr 09/24/18 12:02 09/24/18 12:33 09/24/18 13:00 Temperature 101.4 F H Pulse Rate 90 76 Respiratory Rate 23 19 Blood Pressure Blood Pressure [Right Arm] 132/63 114/44 L Pulse Oximetry 96 97 09/24/18 13:30 09/24/18 13:36 09/24/18 14:06 Temperature 101.4 F H 101.4 F H Pulse Rate 76 81 78 Respiratory Rate 19 20 17 Blood Pressure 119/42 L 108/48 L Blood Pressure [Right Arm] 157/68 H Pulse Oximetry 97 96 100 09/24/18 14:45 09/24/18 15:48 Temperature 98.8 F Pulse Rate 75 69 Respiratory Rate 17 17 Blood Pressure Blood Pressure [Right Arm] 102/51 L 103/49 L Pulse Oximetry 95 95 MDM - Weakness Lab Data Attestation: I reviewed the patient's lab results. Result diagrams: 09/24/18 11:22 09/24/18 11:22 Lab Results 09/24/18 09/24/18 09/24/18 Range/Units 11:22 11:22 11:22 WBC 16.3 H (4.5-11.0) X10^3/uL RBC 5.45 (4.5-5.9) X10^6/uL Hgb 16.4 (13.5-17.5) g/dL Hct 49.4 (41-53) % MCV 90.7 (80-100) fL MCH 30.1 (26-34) PG MCHC 33.2 (30-36) % RDW 14.6 (11.6-14.8) % Plt Count 134 L (150-400) X10^3/uL Neut % (Auto) 89.0 H (50-75) % Lymph % (Auto) 4.4 L (25-40) % [place] % (Auto) 6.1 (3-14) % Eos % (Auto) 0.1 L (2-4) % Baso % (Auto) 0.4 (0-2) % Neut # (Auto) 89265 H (5641-0940) /uL Lymph # (Auto) 700 L (0987-3108) /uL [place] # (Auto) 1000 H (0-900) /uL Eos # (Auto) 0 (0-450) /uL Baso # (Auto) 100 (0-100) /uL PT 12.3 (10.1-12.7) SECONDS INR 1.1 (0.9-1.3) APTT 28 D (26.4-36.2) SECONDS Sodium (137-145) mmol/L Potassium (3.4-5.1) mmol/L Chloride (98-107) mmol/L Carbon Dioxide (22-32) mmol/L BUN (9-20) mg/dL Creatinine (0.66-1.25) mg/dL Estimated GFR (>60) mL/min BUN/Creatinine Ratio (6-22) Glucose (80-110) mg/dL Lactate (0.7-2.1) mmol/L Calcium (8.4-10.2) mg/dL Total Bilirubin (0.2-1.3) mg/dL AST (17-59) IU/L ALT (21-72) IU/L Alkaline Phosphatase (38-126) U/L B-Natriuretic Peptide (<100) Total Protein (6.3-8.2) g/dL Albumin (3.5-5.0) g/dL Globulin (1.7-4.1) g/dL Albumin/Globulin Ratio (1.0-2.8) Procalcitonin 0.08 (<0.5) ng/mL Urine Color Urine Appearance Urine pH (4.5-8.0) Ur Specific Rudy (1.000-1.035) Urine Protein (Negative) Urine Glucose (UA) (Negative) g/dL Urine Ketones (NEGATIVE) Urine Occult Blood (Negative) Urine Nitrate (Negative) Urine Bilirubin (NEGATIVE) Urine Urobilinogen (0.2) E.U./dL Ur Leukocyte Esterase (NEGATIVE) Urine RBC (0-5/HPF) Urine WBC (0-5/HPF) Ur Squamous Epith Cells (0-5/HPF) Amorphous Sediment Urine Bacteria (None) Ur Culture Indicated? 09/24/18 09/24/18 09/24/18 Range/Units 11:22 11:22 12:50 WBC (4.5-11.0) X10^3/uL RBC (4.5-5.9) X10^6/uL Hgb (13.5-17.5) g/dL Hct (41-53) % MCV (80-100) fL MCH (26-34) PG MCHC (30-36) % RDW (11.6-14.8) % Plt Count (150-400) X10^3/uL Neut % (Auto) (50-75) % Lymph % (Auto) (25-40) % [place] % (Auto) (3-14) % Eos % (Auto) (2-4) % Baso % (Auto) (0-2) % Neut # (Auto) (0867-5769) /uL Lymph # (Auto) (8954-9189) /uL [place] # (Auto) (0-900) /uL Eos # (Auto) (0-450) /uL Baso # (Auto) (0-100) /uL PT (10.1-12.7) SECONDS INR (0.9-1.3) APTT (26.4-36.2) SECONDS Sodium 137 (137-145) mmol/L Potassium 4.1 (3.4-5.1) mmol/L Chloride 100 (98-107) mmol/L Carbon Dioxide 28 (22-32) mmol/L BUN 20 (9-20) mg/dL Creatinine 0.80 (0.66-1.25) mg/dL Estimated GFR > 60.0 (>60) mL/min BUN/Creatinine Ratio 25.0 H (6-22) Glucose 113 H (80-110) mg/dL Lactate 1.6 (0.7-2.1) mmol/L Calcium 8.8 (8.4-10.2) mg/dL Total Bilirubin 1.3 (0.2-1.3) mg/dL AST 28 (17-59) IU/L ALT 28 (21-72) IU/L Alkaline Phosphatase 100 (38-126) U/L B-Natriuretic Peptide 274 H (<100) Total Protein 6.7 (6.3-8.2) g/dL Albumin 3.8 (3.5-5.0) g/dL Globulin 2.9 (1.7-4.1) g/dL Albumin/Globulin Ratio 1.3 (1.0-2.8) Procalcitonin (<0.5) ng/mL Urine Color Urine Appearance Urine pH (4.5-8.0) Ur Specific Rudy (1.000-1.035) Urine Protein (Negative) Urine Glucose (UA) (Negative) g/dL Urine Ketones (NEGATIVE) Urine Occult Blood (Negative) Urine Nitrate (Negative) Urine Bilirubin (NEGATIVE) Urine Urobilinogen (0.2) E.U./dL Ur Leukocyte Esterase (NEGATIVE) Urine RBC (0-5/HPF) Urine WBC (0-5/HPF) Ur Squamous Epith Cells (0-5/HPF) Amorphous Sediment Urine Bacteria (None) Ur Culture Indicated? 09/24/18 Range/Units 13:10 WBC (4.5-11.0) X10^3/uL RBC (4.5-5.9) X10^6/uL Hgb (13.5-17.5) g/dL Hct (41-53) % MCV (80-100) fL MCH (26-34) PG MCHC (30-36) % RDW (11.6-14.8) % Plt Count (150-400) X10^3/uL Neut % (Auto) (50-75) % Lymph % (Auto) (25-40) % [place] % (Auto) (3-14) % Eos % (Auto) (2-4) % Baso % (Auto) (0-2) % Neut # (Auto) (3667-5749) /uL Lymph # (Auto) (0056-2301) /uL [place] # (Auto) (0-900) /uL Eos # (Auto) (0-450) /uL Baso # (Auto) (0-100) /uL PT (10.1-12.7) SECONDS INR (0.9-1.3) APTT (26.4-36.2) SECONDS Sodium (137-145) mmol/L Potassium (3.4-5.1) mmol/L Chloride (98-107) mmol/L Carbon Dioxide (22-32) mmol/L BUN (9-20) mg/dL Creatinine (0.66-1.25) mg/dL Estimated GFR (>60) mL/min BUN/Creatinine Ratio (6-22) Glucose (80-110) mg/dL Lactate (0.7-2.1) mmol/L Calcium (8.4-10.2) mg/dL Total Bilirubin (0.2-1.3) mg/dL AST (17-59) IU/L ALT (21-72) IU/L Alkaline Phosphatase (38-126) U/L B-Natriuretic Peptide (<100) Total Protein (6.3-8.2) g/dL Albumin (3.5-5.0) g/dL Globulin (1.7-4.1) g/dL Albumin/Globulin Ratio (1.0-2.8) Procalcitonin (<0.5) ng/mL Urine Color Other Urine Appearance Cloudy Urine pH 7.0 (4.5-8.0) Ur Specific Rudy 1.020 (1.000-1.035) Urine Protein 1+ H (Negative) Urine Glucose (UA) Negative (Negative) g/dL Urine Ketones Negative (NEGATIVE) Urine Occult Blood 3+ H (Negative) Urine Nitrate Negative (Negative) Urine Bilirubin Negative (NEGATIVE) Urine Urobilinogen 0.2 (0.2) E.U./dL Ur Leukocyte Esterase Trace H (NEGATIVE) Urine RBC >100/hpf (0-5/HPF) Urine WBC 1-5/hpf (0-5/HPF) Ur Squamous Epith Cells 0-1 /hpf (0-5/HPF) Amorphous Sediment 1+ Urine Bacteria Occasional (0-1) (None) Ur Culture Indicated? Specimen cultured Imaging Data Chest x-ray: Radiologist's impression: PROCEDURE: XR CHEST 1V INDICATIONS: fever TECHNIQUE: One view of the chest was acquired. COMPARISON: [facility], , XR CHEST 1V, 08/04/2018, 11:32. FINDINGS: Surgical changes and devices: There is a left-sided cardiac pacer/d efibrillator. Median sternotomy changes are present. Lungs and pleura: There has been interval development of vague airspace disease throughout the right lung, which is more prominent within the right upper lobe. No large effusion or pneumothorax. Mediastinum: Mediastinal contours appear normal. Heart size is normal. There is aortic atherosclerosis. Bones and chest wall: No suspicious bony lesions. Overlying soft tissues appear unremarkable. IMPRESSION: Right upper lobe pneumonia. Dictated by: Dashawn Claros M.D. on 09/24/2018 at 11:02 ECG Data Attestation: I personally reviewed and interpreted this ECG as follows: Prior ECG tracings: available for review Interpretation: Paced rhythm rate [address] changes MDM Narrative Medical decision making narrative: According to daughter patient is failing at home. He is becoming more difficult to be cared for and resisting any sort of care. He has a fever leukocytosis and pneumonia on x-ray. Daughter has not noticed any cough. Patient was also noted to have about 400 mL in bladder Frazier catheter was placed. Gross hematuria came out. With irrigated easily with about 500 cc of fluid and is now pink. Dr. Jones accepts patient Discharge Plan Departure Patient Disposition: Admitted As Inpatient Clinical Impression: Pneumonia Qualifiers: Pneumonia type: due to unspecified organism Laterality: right Lung location: upper lobe of lung Qualified Code(s): J18.1 - Lobar pneumonia, unspecified organism Interventions: ED Discharge Assessment Last Done: 09/24/18 14:06 Admit Date/Time: 09/24/18 15:53 Admit Provider: Shannan Jones
[2018-09-24] MEDS: ACETAMINOPHEN 325 MG TABLET 975 MG PO (13:00)
[2018-09-24 13:11] LABS: Lactate (Lactic Acid) 1.6 mmol/L (0.7-2.1)
[2018-09-24 13:44] LABS: Bilirubin Urine UA NEGATIVE (NEGATIVE); Glucose Urine UA NEGATIVE (Negative); Ketones Urine UA NEGATIVE (NEGATIVE); Leukocyte Esterase Urine UA TRACE (NEGATIVE); Nitrite Urine UA NEGATIVE (Negative); Occult Blood Urine UA 3+ (Negative); Protein Urine UA 1+ (Negative); Urobilinogen Urine UA 0.2 E.U./dL (0.2)
[2018-09-24] MEDS: CEFTRIAXONE 1 GM/50 ML FROZ.PIGGY IV (13:44)
[2018-09-24 13:46] LABS: Appearance Urine UA CLOUDY; Color Urine UA OTHER
[2018-09-24 13:52] LABS: Amorphous Sediment Urine 1+; Bacteria Urine Occasional (0-1); Culture Indicated Urine Specimen Cultured; RBC Urine >100/HPF (0-5/HPF); Squamous Epithelial Cell Urine 0-1 /HPF (0-5/HPF); WBC Urine 1-5/HPF (0-5/HPF)
[2018-09-24] MEDS: AZITHROMYCIN 500 MG in DEXTROSE 5% IN WATER 250 ML IV (14:42)
--- NOTE | 2018-09-24 15:20 | PC.NURSE ---
bladder irrigation complete - braun emptied prior to irrigation. 600 ml output drained from bag. Using awseptic technique I irrigated the bladder. Procedure used approx 700 ml of NS until fluid was pink tinged. Braun bag re-attached.
[2018-09-24 16:03] LABS: B Type Natriuretic Peptide 274 (<100)
--- NOTE | 2018-09-24 18:13 | PC.NURSE ---
Addendum entered by Annie Yusuf R.N. 09/24/18 22:55: 2245 - Pt calm and cooperative. Reports memory loss, I can't remember anything anymore. Reoriented to place, situation and treatment plan. Pt able to take meds whole in carrier without difficulty. Reports frequent cough with solid food, hamburger. Educated to swallow evaluation. Position for comfort. Call light in reach. bedl alarm on. Original Note: 1615 - Pt to room from ER. Transfer via slider board to bed. Pt reports discomfort to bony butt skin intact with blanchable erythema. Positioned for comfort. When asked orientation questions, pt knows he is in the hospital. Month October. Year 2017, President, I can't remember his name, but I don't like him. Pt a poor historian of events leading up to admission, except for saying I keep sliding out of bed. Pt daughter arrives report pt has a significant hx of dementia, but reports that he seems to be doing well today. Pt daughter repeatedly states that the goal is for him to go to a custodial facility report that pt home environment is unsafe and that pt is intermittently non-compliant with medication. She reports that on 09/22 he had an appointment with Dr. [place], were they paired down his medications to only priority. Adding zoloft and buspar, RX has not yet arrived from [place]. Pt also recently had surgery to left eye, and is currently receiving 2 different eye drops. Unable to confirm names, she will go to pt house and provide information. Pt daughter, Isadora, also states that the patient has a currently POLST form that states no antibiotics. However she would like Pt, pt's , and herself to review with MD. Dr. Beverly notified that pt family would care to review POLST form. Pt daughter provided pt with a meal. Pt intermittently cough with meal and spoke with a gurgle noted to voice. Pt able to swallow and cough on request, managed sips of water without difficulty. Pt daughter reports frequent coughing with meals. Speech eval ordered per protocol. Pt oriented to room and routine. Bed alarm on.
[2018-09-24 18:38] LABS: Adenovirus Not Detected (Not Detect); Bordetella pertussis Not Detected (Not Detect); Chlamydophila pneumoniae Not Detected (Not Detect); Coronavirus 229E Not Detected (Not Detect); Coronavirus HKU1 Not Detected (Not Detect); Coronavirus NL 63 Not Detected (Not Detect); Coronavirus OC43 Not Detected (Not Detect); Human Metapneumovirus Not Detected (Not Detect); Human Rhinovirus/Enterovirus Not Detected (Not Detect); Influenza A Not Detected (Not Detect); Influenza B Not Detected (Not Detect); Mycoplasma pneumoniae Not Detected (Not Detect); Parainfluenza Virus 1 Not Detected (Not Detect); Parainfluenza Virus 2 Not Detected (Not Detect); Parainfluenza Virus 3 Not Detected (Not Detect); Parainfluenza Virus 4 Not Detected (Not Detect); Respiratory Syncytial Virus Not Detected (Not Detect)
--- NOTE | 2018-09-24 21:40 | P.HP_ITS ---
History of Present Illness Date Patient Seen: 09/24/18 Time Patient Seen: 19:45 Chief complaint: Fell, weakness/confusion Narrative: Mr. Hilario Lopez is an 83-year-old male patient with history significant for myocardial infarction, atrial fibrillation, CHF with reduced ejection fraction, hypertension, aortic aneurysm status post repair, T&A, central retinal artery occlusion, vascular dementia with behavioral disturbances and right AKA presents to the emergency department for complaints of weakness. The patient had slid off chair sustaining no trauma and was unable to get. The patient has had increasing frequency of falls with an increase in need for assistance to get up including response by emergency services. The patient is an unreliable historian with varying levels of confusion believing he is in his home at the time of examination. Other elements of remote history he is able to accurately recall which is verified by his daughter Isadora who arrives during the exam. She describes his level of mentation is slightly better than average. She does note that he will become abusive and belligerent and refused to take his medications. Patient's daughter sets up his medications at home where he lives his . The patient states he has had no recent complaints of illness and has undergone left eye surgery for persistent elevated intra-ocular pressure with placement of a stent 3 weeks ago. He is on multiple eyedrops which are yet to be clarified. The patient otherwise denies any complaints of recent illness, fevers or chills. The patient is 3 weeks postop surgery on left eye for central retinal vein occlusion and acute glaucoma with loss of vision, history a color blindness. He has had no nasal congestion or sore throat and denies shortness of breath or cough. His daughter Yolie endorses the patient coughs with eating. He denies chest pain or palpitations though has a history TN and atrial fibrillation. He denies abdominal pain, nausea vomiting, diarrhea or constipation. 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 Upon arrival to the ER the patient is found to be febrile at 11.4 with heart rate of 90 and blood pressure 132/63 with respiratory rate of 23 saturating at 96% on room air. On chest x-ray and x-ray the patient is found to have right upper lobe pneumonia and cardiac echo completed 4 days ago shows an EF of 30-45% with akinesis consistent with prior apical and septal infarct. If further notes that there is no change compared with study done on 07/07/2015. Respiratory panel was completed which is found to be negative. A Frazier catheter is placed due to urinary retention with urine now red in color and per patient and family no prior hematuria. UA shows 1+ protein, 3+ blood, trace leukocyte esterase, with no WBCs or nitrites and occasional bacteria. The patient is admitted for ongoing evaluation and treatment for pneumonia. Patient History Medical History (Updated 09/25/18 @ 03:46 by HAYDEE Gallardo) Color blind (Acute) CRVO (central retinal vein occlusion) (Acute) Dementia (Acute) HTN (hypertension) (Acute) TIA (transient ischemic attack) (Acute) AAA (abdominal aortic aneurysm) (Chronic) Atrial fibrillation (Chronic) Bilateral renal artery stenosis (Chronic) Dyslipidemia (Chronic) Peripheral vascular disease (Chronic) Thrombocytopenia (Chronic) Intracerebral bleed (Resolved) Surgical History AICD (automatic cardioverter/defibrillator) present (Chronic) 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) Social History marital status: household members: spouse occupational status: previously employed Smoking Status: Former smoker alcohol intake: never Family & Social History Social History: household members spouse Prior Living Arrangements House Safety & Behavioral: Feels Safe in Current Yes Environment Been Physically Hurt or No Threatened By a Person Suicidal Ideation Description None Tobacco & Substance use: Smoking Status Former smoker alcohol intake never alcohol intake frequency 0-2 drinks per day Substance Use Type does not use Comment: Much of the patient history is provided by patient's daughter Yolie who arrives during the encounter. The patient presently lives at home with his . The patient's medications are managed by his daughter and administered by his however the patient is reportedly does not consistently take his medications. Patient's parents are both with his father passing away from a heart attack and his mother who of old age. He has 2 sisters 1 of whom has from abdominal an element. Smoking: The patient was a 2 pack per day smoker from the age of 24 and quit at age 44, 40 pack-year history. Alcohol: The patient will consume beer rarely Substance use: Patient denies recreation pharmaceuticals herbal or cannabis products. Advanced directives: In direct conversation with the patient and his daughter Isadora, the patient expresses the wish to be FULL CODE. The patient has a living will that the daughter brings today. He designates his daughter Isadora Phillips and his to be surrogate decision makers. Meds Home Medications Medication Instructions Recorded Confirmed Type nitroglycerin [Nitrostat] 0.4 mg SUBLINGUAL PRN PRN #0 12/27/12 09/24/18 History atorvastatin [Lipitor] 80 mg PO DAILY 07/26/18 09/24/18 History buspirone 1.25 mg PO BEDTIME 07/26/18 09/24/18 History carvedilol [Coreg] 12.5 mg PO BID 07/26/18 09/24/18 History clopidogrel [Plavix] 75 mg PO DAILY 07/26/18 09/24/18 History hydralazine 25 mg PO BID 07/26/18 09/24/18 History sertraline [Zoloft] 50 mg PO DAILY 07/26/18 09/24/18 History brimonidine 1 drp EYE-LEFT QPM 08/04/18 08/04/18 History dorzolamide 1 drp EYE-LEFT BID 08/04/18 08/04/18 History isosorbide mononitrate 30 mg PO DAILY 08/04/18 09/24/18 History latanoprost 1 drp EYE-BOTH BEDTIME 08/04/18 09/13/18 History mirtazapine 7.5 mg PO BEDTIME 08/04/18 09/24/18 History netarsudil [Rhopressa] 1 drp EYE-LEFT BEDTIME 08/04/18 08/04/18 History timolol 1 drp EYE-LEFT BID 08/04/18 08/04/18 History tramadol 50 mg PO TID PRN 08/04/18 09/24/18 History gabapentin 300 mg PO TID 09/24/18 09/24/18 History Allergies Allergy/AdvReac Type Severity Reaction Status Date / Time No Known Drug Allergies Allergy Verified 08/04/18 11:28 Review of Systems Review of Systems All systems reviewed & are unremarkable except as noted in HPI and below Exam Vital Signs (past 8 hours): - 09/24/18 14:06 09/24/18 14:45 09/24/18 15:48 Temperature 101.4 F H 98.8 F Pulse Rate 78 75 69 Respiratory Rate 17 17 17 Blood Pressure 108/48 L Blood Pressure [Right Arm] 102/51 L 103/49 L Pulse Oximetry 100 95 95 09/24/18 16:10 09/24/18 20:00 Temperature 97.8 F 98.8 F Pulse Rate 66 70 Respiratory Rate 14 12 Blood Pressure 130/56 L 139/52 L Blood Pressure [Right Arm] Pulse Oximetry 97 94 Oxygen Delivery Method Room Air Narrative Exam Narrative: GENERAL APPEARANCE: well developed, adequately nourished with a BMI of 18.8, is afebrile and in no acute distress. HEAD: Normocephalic, atraumatic, no scalp lesions. EYES: pupils equal, unable to count fingers at 8 in with left eye, conjunctival inflammation, no exophthalmos, tearing left eye, sclera non-icteric, extraocular movement intact. EARS: normal external structures, no ear pain NOSE: sinuses non tender to percussion, no rhinorrhea ORAL CAVITY: mucosa dry without lesions or exudate, palate normal, tongue in midline. THROAT: normal, no erythema, no exudate, pharynx normal, uvula midline. NECK/THYROID: neck supple, no jugular venous distention, transmitted heart sounds to the carotids bilaterally, no thyromegaly, trachea midline. LYMPH NODES: no cervical or supraclavicular lymphadenopathy. SKIN: warm and dry, no suspicious lesions, no rashes, good turgor. HEART: Irregularly irregular rhythm, unifocal PVCs on monitor, S1-S2 with 1/6 systolic murmur, no rubs or gallops, brisk capillary refill, no edema LUNGS: clear to auscultation bilaterally, no coarseness crackles or wheezing, no cough present CHEST: Well-healed median sternotomy, symmetrical movement, no accessory muscle use, no pain to AP and lateral compression. ABDOMEN: Well-healed midline abdominal surgical scar, abdomen soft, no distention, no epigastric or abdominal tenderness on palpation, no guarding or peritoneal signs, no pulsatile mass or organomegaly, no flank or suprapubic tenderness, active bowel tones. BACK: Normal curvature, nontender to palpation, no CVA tenderness on percussion EXTREMITIES: Right AKA stump with muscular atrophy, skin intact, left left leg and upper extremities was strength 5/5, spooling supervisor equal NEUROLOGIC: Awake and alert, oriented to person only confused as to location, date or situation, minimal vision left eye, remainder cranial nerves grossly intact, sensory exam intact to light touch, hearing grossly normal to speech. PSYCH: alert, interactive, cooperative, stable mood with congruent affect Objective Labs Result Diagrams: 09/24/18 11:22 09/24/18 11:22 Labs: Laboratory Results - last 24 hr 09/24/18 09/24/18 09/24/18 11:22 11:22 11:22 WBC 16.3 H RBC 5.45 Hgb 16.4 Hct 49.4 MCV 90.7 MCH 30.1 MCHC 33.2 RDW 14.6 Plt Count 134 L Neut % (Auto) 89.0 H Lymph % (Auto) 4.4 L Gilliam % (Auto) 6.1 Eos % (Auto) 0.1 L Baso % (Auto) 0.4 Neut # (Auto) 76988 H Lymph # (Auto) 700 L Gilliam # (Auto) 1000 H Eos # (Auto) 0 Baso # (Auto) 100 PT 12.3 INR 1.1 APTT 28 D Sodium Potassium Chloride Carbon Dioxide BUN Creatinine Estimated GFR BUN/Creatinine Ratio Glucose Lactate Calcium Total Bilirubin AST ALT Alkaline Phosphatase B-Natriuretic Peptide Total Protein Albumin Globulin Albumin/Globulin Ratio Procalcitonin 0.08 Urine Color Urine Appearance Urine pH Ur Specific [place] Urine Protein Urine Glucose (UA) Urine Ketones Urine Occult Blood Urine Nitrate Urine Bilirubin Urine Urobilinogen Ur Leukocyte Esterase Urine RBC Urine WBC Ur Squamous Epith Cells Amorphous Sediment Urine Bacteria Ur Culture Indicated? Nasal Screen MRSA (PCR) Chlamy pneumoniae PCR Adenovirus (PCR) B.parapertussis DNA PCR Coronavirus OC43 (PCR) Coronavirus HKU1 (PCR) Coronavirus 229E (PCR) Coronavirus NL63 (PCR) Human Metapneumovir PCR Influenza Type A (PCR) Influenza Type B (PCR) M. pneumoniae (PCR) Parainfluenza 1 (PCR) Parainfluenza 2 (PCR) Parainfluenza 3 (PCR) Parainfluenza 4 (PCR) RSV (PCR) Entero/Rhino (PCR) 09/24/18 09/24/18 09/24/18 11:22 11:22 12:50 WBC RBC Hgb Hct MCV MCH MCHC RDW Plt Count Neut % (Auto) Lymph % (Auto) Gilliam % (Auto) Eos % (Auto) Baso % (Auto) Neut # (Auto) Lymph # (Auto) Gilliam # (Auto) Eos # (Auto) Baso # (Auto) PT INR APTT Sodium 137 Potassium 4.1 Chloride 100 Carbon Dioxide 28 BUN 20 Creatinine 0.80 Estimated GFR > 60.0 BUN/Creatinine Ratio 25.0 H Glucose 113 H Lactate 1.6 Calcium 8.8 Total Bilirubin 1.3 AST 28 ALT 28 Alkaline Phosphatase 100 B-Natriuretic Peptide 274 H Total Protein 6.7 Albumin 3.8 Globulin 2.9 Albumin/Globulin Ratio 1.3 Procalcitonin Urine Color Urine Appearance Urine pH Ur Specific [place] Urine Protein Urine Glucose (UA) Urine Ketones Urine Occult Blood Urine Nitrate Urine Bilirubin Urine Urobilinogen Ur Leukocyte Esterase Urine RBC Urine WBC Ur Squamous Epith Cells Amorphous Sediment Urine Bacteria Ur Culture Indicated? Nasal Screen MRSA (PCR) Chlamy pneumoniae PCR Adenovirus (PCR) B.parapertussis DNA PCR Coronavirus OC43 (PCR) Coronavirus HKU1 (PCR) Coronavirus 229E (PCR) Coronavirus NL63 (PCR) Human Metapneumovir PCR Influenza Type A (PCR) Influenza Type B (PCR) M. pneumoniae (PCR) Parainfluenza 1 (PCR) Parainfluenza 2 (PCR) Parainfluenza 3 (PCR) Parainfluenza 4 (PCR) RSV (PCR) Entero/Rhino (PCR) 09/24/18 09/24/18 09/24/18 13:10 17:05 17:25 WBC RBC Hgb Hct MCV MCH MCHC RDW Plt Count Neut % (Auto) Lymph % (Auto) Gilliam % (Auto) Eos % (Auto) Baso % (Auto) Neut # (Auto) Lymph # (Auto) Gilliam # (Auto) Eos # (Auto) Baso # (Auto) PT INR APTT Sodium Potassium Chloride Carbon Dioxide BUN Creatinine Estimated GFR BUN/Creatinine Ratio Glucose Lactate Calcium Total Bilirubin AST ALT Alkaline Phosphatase B-Natriuretic Peptide Total Protein Albumin Globulin Albumin/Globulin Ratio Procalcitonin Urine Color Other Urine Appearance Cloudy Urine pH 7.0 Ur Specific [place] 1.020 Urine Protein 1+ H Urine Glucose (UA) Negative Urine Ketones Negative Urine Occult Blood 3+ H Urine Nitrate Negative Urine Bilirubin Negative Urine Urobilinogen 0.2 Ur Leukocyte Esterase Trace H Urine RBC >100/hpf Urine WBC 1-5/hpf Ur Squamous Epith Cells 0-1 /hpf Amorphous Sediment 1+ Urine Bacteria Occasional (0-1) Ur Culture Indicated? Specimen cultured Nasal Screen MRSA (PCR) Negative for mrsa Chlamy pneumoniae PCR Not detected Adenovirus (PCR) Not detected B.parapertussis DNA PCR Not detected Coronavirus OC43 (PCR) Not detected Coronavirus HKU1 (PCR) Not detected Coronavirus 229E (PCR) Not detected Coronavirus NL63 (PCR) Not detected Human Metapneumovir PCR Not detected Influenza Type A (PCR) Not detected Influenza Type B (PCR) Not detected M. pneumoniae (PCR) Not detected Parainfluenza 1 (PCR) Not detected Parainfluenza 2 (PCR) Not detected Parainfluenza 3 (PCR) Not detected Parainfluenza 4 (PCR) Not detected RSV (PCR) Not detected Entero/Rhino (PCR) Not detected Assessment & Plan Assessment & Plan narrative: The patient is admitted to the hospital for ongoing evaluation treatment pneumonia, weakness and dysphagia. 1. Community acquired pneumonia, acute, present on admission. -patient with increasing weakness and reports of dysphagia -cough only reported when eating, no shortness of breath, patient on aerobically challenged as he is wheelchair-bound. -right upper lobe pneumonia reported on CXR. -fever, leukocytosis with a white count of 16.3, respiratory panel is negative, lactate is 1.6 and procalcitonin is 0.08. -azithromycin 500 mg IV daily for 3 days -ceftriaxone 1 g every 12 hours 2. Generalized weakness, active -patient is right above knee amputee due to vascular insufficiency. -patient does not use use prosthesis, is able to self transfer and uses [facility] for mobility with progressive debility. -patient with increasing frequency of falls requiring assistance from his or more frequently emergency services. -no trauma associated with falls, more frequently slides off furniture on the floor and is unable to get up. -patient with neuropathy of the right stump, continue gabapentin 300 mg 3 times daily and tramadol 50 mg 3 times daily. -PT and OT to evaluate and treat. 3. Chronic dysphagia active -reports of patient coughing with eating, patient reports chewing well but still coughs. -chest x-ray shows right upper lobe pneumonia -will obtain speech evaluation and barium swallow. This discussed with the daughter Yolie who agrees with the test. 4. Chronic glaucoma, active. -history glaucoma in both eyes -history central retinal vein occlusion left eye with stent placement left eye following acute glaucoma. -the patient states he has vision in the left eye but is unable to count fingers at 8 inches. -patient is on multiple eyedrops. Eyedrops the patient says he is taking is brought in however 1 his antibiotic that is to be discontinued and the other bottle is empty. The daughter will return home to clarify eye medications and return. 5. Chronic vascular dementia, active -patient is unable manage his medications independently, patient's daughter who lives in [place] has been assisting with medications. -patient with behavioral manifestations including agitation and refusal to take medications. -Recently prescribed but not started yet on sertraline 50 mg and buspirone 12.5 mg which will be started now. -continue mirtazapine 7.5 mg at bedtime. 6. Chronic Atrial fibrillation active -patient with a history apical septal TN with akinesis noted on echocardiogram 4 days ago without change compared to exam on 07/07/2015. -CHF with EF 30-35%. Preserved renal function with BUN of 20 and creatinine is 0.8, no chest pain. -irregularly irregular rhythm with unifocal PVCs on monitor -continue clopidogrel 75 mg daily -continue Coreg 12.5 mg twice daily -continue isosorbide 30 mg daily 7. Chronic hypertension, active -continue Coreg 12.5 mg twice daily -continue hydralazine 25 mg twice daily -continue isosorbide 30 mg daily 8. Chronic hyperlipidemia, active -continue atorvastatin 80 mg daily The patient is admitted to the hospital for severity symptoms and risk for complications. The patient is admitted as an inpatient with expected length of stay to be greater than 2 midnights. Scores GCS [place] coma scale eye opening: Spontaneous [place] coma scale verbal response: Orientated [place] coma scale motor response: Obey commands [place] coma scale total score: 15 Quality VTE Deep Vein Thrombosis/Pulmonary Embolism Present on Admission: No
[2018-09-24] MEDS: TRAMADOL 50 MG TABLET PO (22:15)
[2018-09-24] MEDS: MIRTAZAPINE 15 MG TABLET 7.5 MG PO (22:16)
[2018-09-24] MEDS: HYDRALAZINE 25 MG TABLET PO (22:16)
[2018-09-24] MEDS: GABAPENTIN 300 MG CAPSULE PO (22:16)
[2018-09-24] MEDS: SODIUM CHLORIDE 0.9% 500 ML 50 ML IV (22:17)
[2018-09-25] VITALS (7 sets, daily range): BP systolic 96–154; BP diastolic 46–84; PULSE 58–72; RESP 12–20; TEMP 36.7–37.7; O2SAT 93–96
--- NOTE | 2018-09-25 | DI.RAD.S_ITS ---
PROCEDURE: FL BARIUM SWALLOW W SPEECH INDICATIONS: impaired swallowing, coughing on food TECHNIQUE: Examination was conducted in conjunction with speech pathology per standard protocol. In the lateral projection, filming was performed of the patient swallowing. AP projection filming may also be performed with patient swallowing. COMPARISON: None. FINDINGS: Function: The oral preparatory phase appears normal, with proper containment. The subsequent oral propulsive phase, pharyngeal phase, and esophageal phase of swallowing also appear normal with all proffered substances. Frequent silent laryngeal penetration and tracheal aspiration noted. There was prominent residual and vallecular pooling. Morphology: No cricopharyngeal bar is identified. No cervical esophageal webs. No Zenker's diverticulum. No strictures. IMPRESSION: Frequent silent tracheal aspiration. Dictated by: Josh Martin M.D. on 09/25/2018 at 15:24 Approved by: Josh Martin M.D. on 09/25/2018 at 15:25
[2018-09-25] MEDS: CEFTRIAXONE 1 GM/50 ML FROZ.PIGGY IV ×2 (01:42→14:18)
[2018-09-25 05:05] LABS: Add Manual Diff / Slide Review NO; Basophils Absolute Auto 100 /uL (0-100); Basophils Percent Auto 0.5 % (0-2); Eosinophils Absolute Auto 100 /uL (0-450); Eosinophils Percent Auto 0.4 % (2-4); Hematocrit 42.3 % (41-53); Hemoglobin 14.2 g/dL (13.5-17.5); Lymphocytes Absolute Auto 1400 /uL (1100-4500); Lymphocytes Percent Auto 11.8 % (25-40); Mean Corpuscular HGB Conc 33.6 % (30-36); Mean Corpuscular Hemoglobin 30.5 PG (26-34); Mean Corpuscular Volume 90.9 fL (80-100); Monocytes Absolute Auto 1000 /uL (0-900); Neutrophils Absolute Auto 9700 /uL (1500-7000); Neutrophils Percent Auto 79.3 % (50-75); Platelet Count 99 X10^3/uL (150-400); Red Blood Cell Count 4.66 X10^6/uL (4.5-5.9); Red Cell Distribution Width 14.5 % (11.6-14.8); White Blood Cell Count 12.3 X10^3/uL (4.5-11.0)
[2018-09-25 05:10] LABS: BUN Creatinine Ratio 22.9 (6-22); Blood Urea Nitrogen 16 mg/dL (9-20); Calcium 7.9 mg/dL (8.4-10.2); Carbon Dioxide 28 mmol/L (22-32); Chloride 103 mmol/L (98-107); Estimated Glomerular Filt Rate > 60.0 mL/min (>60); Glucose 95 mg/dL (80-110); HEMOLYSIS < 15 (0-50); Potassium 3.7 mmol/L (3.4-5.1); Sodium 137 mmol/L (137-145)
[2018-09-25 05:25] LABS: Procalcitonin 0.42 ng/mL (<0.5)
[2018-09-25] MEDS: CLOPIDOGREL 75 MG TABLET PO (08:55)
[2018-09-25] MEDS: ATORVASTATIN 20 MG TABLET 80 MG PO (08:55)
[2018-09-25] MEDS: CARVEDILOL 12.5 MG TABLET PO ×2 (08:55→21:03)
[2018-09-25] MEDS: SERTRALINE 50 MG TABLET PO (08:57)
[2018-09-25] MEDS: GABAPENTIN 300 MG CAPSULE PO ×3 (08:57→21:03)
[2018-09-25] MEDS: ISOSORBIDE MONONITRATE ER 30 MG TABLET PO (08:57)
[2018-09-25] MEDS: HEPARIN 5,000 UNIT/ML VIAL 5000 UNIT SUBCUT ×2 (08:57→21:06)
[2018-09-25] MEDS: HYDRALAZINE 25 MG TABLET PO ×2 (08:57→21:02)
[2018-09-25] MEDS: TRAMADOL 50 MG TABLET PO ×3 (08:59→21:05)
--- NOTE | 2018-09-25 10:30 | PT.IIE ---
Current Diagnoses Pneumonia, unspecified organism (09/24/18) Surgical History (Last Reviewed 09/25/18 @ 02:42 by HAYDEE Gallardo) AICD (automatic cardioverter/defibrillator) present (Chronic) 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) Medical History (Last Updated 09/25/18 @ 03:46 by HAYDEE Gallardo) Color blind (Acute) CRVO (central retinal vein occlusion) (Acute) Dementia (Acute) HTN (hypertension) (Acute) TIA (transient ischemic attack) (Acute) AAA (abdominal aortic aneurysm) (Chronic) Atrial fibrillation (Chronic) Bilateral renal artery stenosis (Chronic) Dyslipidemia (Chronic) Peripheral vascular disease (Chronic) Thrombocytopenia (Chronic) Intracerebral bleed (Resolved) Physical Therapy Inpatient Evaluation/Re-Eval M1 PT/OT-IP Prior Functional Status Start: 09/25/18 08:04 Freq: NEEDED Status: Active Protocol: Document 09/25/18 10:30 RS (Rec: 09/25/18 13:57 RS [email or web address]) Medical Review Prior Functional Status Medical History Reviewed Yes Communication QAGAN TAYAGUNGIN but otherwise able to communicate needs, does have poor memory/dementia Mobility and Gait does not walk, can transfer self to/from manual wheelchair including car transfers Prior Functional Level (Other details) has had multiple falls that all occur with patient sliding off a seat Social History Household Members spouse Living Arrangements House Number of Floors (Floors) One Floor Number of Stairs To Enter/Railing? 0 Home Equipment Front Wheel Walker Manual Wheelchair Employment Status Retired Additional Social History Comment cannot provide very much physical assist, if any M2 PT-IP Current Condition Start: 09/25/18 08:04 Freq: NEEDED Status: Active Protocol: Document 09/25/18 10:30 RS (Rec: 09/25/18 13:57 RS [email or web address]) Physical Therapy Current Condition Current Condition Evaluation Date 09/25/18 Treatment Diagnosis pneumonia, weakness, poor skin integrity Onset Date 09/24/18 M3 PT-IP Subjective Start: 09/25/18 08:04 Freq: NEEDED Status: Active Protocol: Document 09/25/18 10:30 RS (Rec: 09/25/18 13:57 RS [email or web address]) Subjective Physical Therapy Visit Type Type Initial Evaluation Visit Start Time 09:30 Visit Stop Time 10:30 Total Visit Minutes 60 Physical Therapy Visit Comments Patient Comments Pt's main complaint is a painful buttocks I'm all skin and bones, pt also does know he's here because he fell out of bed but admits to not knowing how he fell out of bed . Patient Goals go home Therapy Pain Assessment Pain When Pain Assessed At Rest Pain Present Pain Present Pain Reported Location Bilateral Buttock Description Pressure Pain Behaviors Facial Grimacing Wincing Pain Management Techniques Modification of Treatment Re-positioning M4 PT-IP Mobility and Gait Start: 09/25/18 08:04 Freq: NEEDED Status: Active Protocol: Document 09/25/18 10:30 RS (Rec: 09/25/18 13:57 RS [email or web address]) PT-Bed Mobility Assessment Rolling Type of Rolling Roll to Left Level of Assist Moderate Assistance Supine to Sit Supine to Sit Moderate Assistance Scooting Scooting to Edge of Bed Contact Guard Assistance PT-Transfer Assessment Sit to and From Stand Sit to and from Stand Minimal Assistance Equipment Transfer Assistive Device Gait Belt Front Wheeled Walker Transfers Transfer Destination Bed Chair Transfer Technique Stand Pivot Transfer Ability Level of Assist Minimal Assistance Comments Mobility Comments Pt originally trying to sit straight up in bed but unable to do so and describing increase pain in buttocks. Log to L was utilized to prevent skin shearing on buttocks quite as much. Pt suprisingly needed mod A to roll onto L side and then mod A up to sitting with step by step instructions. Once sitting EOB pt was SBA<>CGA to maintain balance but also not able to fully unweight buttocks during scooting to EOB. Gait Assessment Comments Gait Comments pt is nonambulatory at baseline, gait not tested PT-Balance Assessment Sitting Balance and Reactions Static Sitting Balance Ability Fair Dynamic Sitting Balance Ability Poor Standing Balance and Reactions Static Standing Balance Ability Fair Dynamic Standing Balance Ability Poor Device Used FWW M5 PT-IP Objective Assessments Start: 09/25/18 08:04 Freq: NEEDED Status: Active Protocol: Document 09/25/18 10:30 RS (Rec: 09/25/18 13:57 RS [email or web address]) Orientation Orientation/Cognition Level of Alertness Alert Gross Range of Motion Upper Extremity ROM Assessment Within Functional Limits Lower Extremity ROM Assessment Within Functional Limits Strength Comments Strength Comments grossly 3+ to 4/5 M6 PT-IP Treatment Start: 09/25/18 08:04 Freq: NEEDED Status: Active Protocol: Document 09/25/18 10:30 RS (Rec: 09/25/18 13:57 RS [email or web address]) Physical Therapy Treatment Education Education Provided Safety M7 PT-IP Assessment and Plan Start: 09/25/18 08:04 Freq: NEEDED Status: Active Protocol: Document 09/25/18 10:30 RS (Rec: 09/25/18 13:57 RS [email or web address]) PT Summary Assessment and Plan Potential Rehabilitation Potential Fair Status of Condition at Evaluation Evolving Summary Impairments Pain Strength Balance Cognition Bed Mobility Transfers Gait Activity Tolerance Assessment Summary Pt presents with gross deconditioning in addition to chronic pain and impaired cognition. Pt's buttock pain likely caused at least in part by poor transfer/scooting techniques. Pt needing significantly more help than normal but does have potential for functional improvement. Recommend pt transition to SNF rehab once medically ready to participate in daily low intensity skilled therapies. Goals Bed Mobility Goal Contact Guard Assistance Transfer Goal Contact Guard Assistance Days to Meet Goals 4 Frequency of Treatment Frequency Of Treatment Once a Day Treatment Plan Physical Therapy Treatment Plan Bed Mobility Training Transfer Training Therapeutic Exercise Balance Retraining Other Recommendations and Next Treatment bed mobility specifically Focus scooting with better buttock clearance, strength, transfers Recommendations To Nursing Amount of Assist Needed 2 Person Assist Discharge Recommendations PT Discharge Recommendations SNF Rehab
[2018-09-25] MEDS: AZITHROMYCIN 500 MG in DEXTROSE 5% IN WATER 250 ML IV (15:00)
--- NOTE | 2018-09-25 15:23 | P.PN_ITS ---
Subjective Date Patient Seen: 09/25/18 Interval history: Hilario Lopez is an 83-year-old male patient with history significant for myocardial infarction, atrial fibrillation, CHF with reduced ejection fraction, hypertension, aortic aneurysm status post repair, T&A, central retinal artery occlusion, vascular dementia with behavioral disturbances and right AKA presents to the emergency department for complaints of weakness. Patient is resting comfortably in bedside chair and in no acute distress. On first presentation, the patient seems to be alert oriented x3 but with further inquiry revealed the patient is alert oriented to person only. He has advanced vascular dementia which became quite apparent when family presented. The patient seemed to be talking to someone in the corner and actively hallucinating at one point and time. Discussed goals of care with patient's DPOA and Catalina and daughter Isadora. His family informs me that the patient's behavior seems to be somewhat cyclical in nature and he becomes very quiet before he has selvin outbursts with very vulgar and aggressive verbal attacks. They also report that he is quite apologetic sometime after. Informed the family that the patient has significant oropharyngeal dysphagia that likely has some neurogenic component in which, he actively aspirates and most often silently any texture of food he swallows. The patient's family would like him to be comfortable and have the best quality of life. They have changed his code status to DNR/DNI as these were his previous wishes when he was younger and in his right mind. They are considering full comfort care and would like time to discuss and think about it. Exam Vital Signs (past 8 hours): - 09/25/18 08:32 09/25/18 12:28 Temperature 99.6 F 98.1 F Pulse Rate 68 72 Respiratory Rate 18 20 Blood Pressure 154/84 H 101/47 L Pulse Oximetry 94 95 Oxygen Delivery Method Room Air Oxygen Flow Rate 0 Narrative Exam Narrative: General: Elderly frail and cachectic appearing gentleman sitting in bedside chair and in no acute distress, well-developed, well-nourished, appropriately interactive HEENT: Normocephalic, atraumatic. External ears without defect. Pupils unequal L>R, round, and reactive to light. Conjunctival injection of left eye. Anicteric sclerae, moist conjunctivae. Oropharynx free of erythema and cobble stoning with moist mucosa. Neck: Supple with full range of motion. No jugular venous distension. No lymphadenopathy or thyromegaly. Cardiovascular: Irregularly irregular without murmurs, rubs, or gallops appreciated. Pulmonary: Clear to auscultation bilaterally without crackles, wheezes, or rhonchi. Normal respiratory effort with no use of accessory muscles. Abdomen: Bowel tones present. Soft, non-tender, non-distended. No hepatosplenomegaly or masses appreciated. Extremities: No clubbing, cyanosis, or edema. Right lower extremity ROSEMARY. Skin: Normal temperature, turgor, and texture; no rash, ulcers, or subcutaneous nodules appreciated. Neurological: Cranial nerves grossly intact. Psychiatric: Patient's mentation fluctuates intermittently. He at times is very lucid, cooperative, and pleasant. At other times he is confused, hallucinating, and quite aggressive verbally. Objective Labs Result Diagrams: 09/25/18 04:43 09/25/18 04:43 Labs: Laboratory Results - last 24 hr 09/24/18 09/24/18 09/24/18 11:22 17:05 17:25 WBC RBC Hgb Hct MCV MCH MCHC RDW Plt Count Neut % (Auto) Lymph % (Auto) [place] % (Auto) Eos % (Auto) Baso % (Auto) Neut # (Auto) Lymph # (Auto) [place] # (Auto) Eos # (Auto) Baso # (Auto) Sodium Potassium Chloride Carbon Dioxide BUN Creatinine Estimated GFR BUN/Creatinine Ratio Glucose Calcium B-Natriuretic Peptide 274 H Procalcitonin Nasal Screen MRSA (PCR) Negative for mrsa Chlamy pneumoniae PCR Not detected Adenovirus (PCR) Not detected B.parapertussis DNA PCR Not detected Coronavirus OC43 (PCR) Not detected Coronavirus HKU1 (PCR) Not detected Coronavirus 229E (PCR) Not detected Coronavirus NL63 (PCR) Not detected Human Metapneumovir PCR Not detected Influenza Type A (PCR) Not detected Influenza Type B (PCR) Not detected M. pneumoniae (PCR) Not detected Parainfluenza 1 (PCR) Not detected Parainfluenza 2 (PCR) Not detected Parainfluenza 3 (PCR) Not detected Parainfluenza 4 (PCR) Not detected RSV (PCR) Not detected Entero/Rhino (PCR) Not detected 09/25/18 09/25/18 09/25/18 04:43 04:43 04:43 WBC 12.3 H RBC 4.66 Hgb 14.2 Hct 42.3 MCV 90.9 MCH 30.5 MCHC 33.6 RDW 14.5 Plt Count 99 L Neut % (Auto) 79.3 H Lymph % (Auto) 11.8 L [place] % (Auto) 8.0 Eos % (Auto) 0.4 L Baso % (Auto) 0.5 Neut # (Auto) 9700 H Lymph # (Auto) 1400 [place] # (Auto) 1000 H Eos # (Auto) 100 Baso # (Auto) 100 Sodium 137 Potassium 3.7 Chloride 103 Carbon Dioxide 28 BUN 16 Creatinine 0.70 Estimated GFR > 60.0 BUN/Creatinine Ratio 22.9 H Glucose 95 Calcium 7.9 L B-Natriuretic Peptide Procalcitonin 0.42 Nasal Screen MRSA (PCR) Chlamy pneumoniae PCR Adenovirus (PCR) B.parapertussis DNA PCR Coronavirus OC43 (PCR) Coronavirus HKU1 (PCR) Coronavirus 229E (PCR) Coronavirus NL63 (PCR) Human Metapneumovir PCR Influenza Type A (PCR) Influenza Type B (PCR) M. pneumoniae (PCR) Parainfluenza 1 (PCR) Parainfluenza 2 (PCR) Parainfluenza 3 (PCR) Parainfluenza 4 (PCR) RSV (PCR) Entero/Rhino (PCR) Assessment & Plan Assessment & Plan narrative: Hilario Lopez is an 83-year-old male patient with history significant for myocardial infarction, atrial fibrillation, CHF with reduced ejection fraction, hypertension, aortic aneurysm status post repair, T&A, central retinal artery occlusion, vascular dementia with behavioral disturbances and right AKA presents to the emergency department for complaints of weakness. 1. Chronic significant oral pharyngeal dysphagia, possibly neurogenic, present on admission. Active. -Reports of patient choking and coughing while eating. -Chest x-ray shows right upper lobe pneumonia -Consulted speech therapy who evaluated patient and reports that patient silently aspirates on every texture of food that was trialed. Not safe for patient to swallow. Family would like to lower the patient eat for comfort and are leaning towards full comfort care in regards to medical therapies. 2. Acute aspiration pneumonia, present on admission. Active. -patient presented with fever and increasing weakness with history of chronic dysphagia. -cough only reported when eating, no shortness of breath, patient on aerobically challenged as he is wheelchair-bound. -Chest x-ray demonstrated right upper lobe pneumonia. -Initial WBC 16.3 and procalcitonin 0.08. Continue to trend for now. -Respiratory viral PCR negative. -continue azithromycin 500 mg IV daily for 3 days and ceftriaxone 1 g every 12 hours, however, patient's family leaning towards comfort care. 3. Acute on chronic generalized weakness, with severe protein calorie malnutrition and failure to thrive, present on admission. Active. 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 He does not use use prosthesis and is able to self transfer/use wheelchair for mobility. Patient with progressive debility and frequent falls with calls to EMS. -Patient with neuropathy of the right stump. Continue gabapentin 300 mg 3 times daily and tramadol 50 mg 3 times daily. -Continue physical and occupational therapy evaluation and treatment. 4. Chronic glaucoma with recent eye surgery, present on admission. Stable. -Patient has bilateral glaucoma and recent central retinal vein occlusion of left eye with stent placement left eye following acute glaucoma. Appears infected in added erythromycin eyedrops. Continued latanoprost and durezol eyed rops. -Patient has some vision in left eye but is unable to count fingers at 8 inches. -Left eye appears infected in added erythromycin eye drops. Continued home latanoprost and durezol eye drops. 5. Chronic advanced vascular dementia with likely frontal lobe disease and behavioral disturbance, present on admission. Stable. -Patient is unable manage his medications independently and his daughter Yolie who lives in [place] has been assisting with medications. -Patient with behavioral manifestations including agitation, verbal aggression, and refusal to take medications. -Discontinued sertraline 50 mg daily and buspirone 12.5 mg daily. Started Seroquel 12.5 mg daily at bedtime. -Continue mirtazapine 7.5 mg at bedtime. 6. Chronic atrial fibrillation, present on admission. Stable. -Recent echocardiogram 09/24 demonstrated HFrEF of 30-35%, preserved renal function and previous apical septal DE with akinesis without change compared to exam on 07/07/2015. -Continue Coreg 12.5 mg twice daily, hydralazine 25 mg twice daily, isosorbide 30 mg daily and clopidogrel 75 mg daily. 7. Hypertension, chronic, present on admission. Stable. -Continue Coreg 12.5 mg twice daily, hydralazine 25 mg twice daily and isosorbide 30 mg daily. 8. Hyperlipidemia, chronic, present on admission. Stable -Continue atorvastatin 80 mg daily. Disposition: Patient likely to discharge in several days to senior care facility with comfort care versus hospice at home or skilled private pay. Quality VTE Deep Vein Thrombosis/Pulmonary Embolism Present on Admission: No
--- NOTE | 2018-09-25 15:47 | CM.DANOTE ---
DCP/Assessment: Reviewed chart. Patient is a 83yr old male admitted to [facility] with weakness/confusion. PCP not listed. Primary payor is 1)Medicare 2)[employer]. Attempted to meet with patient and family today. Patient off floor for MBS and no family in room. SUPPORT REPRESENTATIVE left resources and name/number on white board for follow up. In AM rounds it was determined that PT/OT/ST evaluations all needed. MD reports family requesting assistance with placement options. Patient with h/o dementia and above knee amputation. Per notes patient w/c bound at baseline. SUPPORT REPRESENTATIVE will f/u with patient family on 09-26-18 for terminal carman and d/c planning needs. RN updated. P: Pending. WALTER Stout Discharge Planning/Care Management CM Discharge Assessment Start: 09/25/18 15:44 Freq: Status: Active Protocol: Document 09/25/18 15:44 KJS (Rec: 09/25/18 15:47 KJS [id number]) Discharge Planning Assessment Assigned Cracking [employer]anning Machine Operator WALTER Stout Contact Information Catalina Lopez (spouse) [phone] Isadora Phillips ( daughter) [phone] Advance Directives? Yes: ADV DIR History Provided By Patient Family Member Medical Record Prior Living Arrangements House Household Members spouse Type of transporation used prior to Relies on Others admit Independent with ADL's No Is patient alert and oriented? No: History of vascular dementia. Caregiver for Another No DME Already Rented / Owned Wheelchair Patient/Family Preference Senior Care Facility Comment Unclear at this time Discharge Plan Senior Care Facility Whiteboard Updated in Patient Room with Yes name and ext. # of Cracking And Fanning Machine Operator Review Status In Process Next Review Type Continued Stay Review
--- NOTE | 2018-09-25 16:21 | ST.SWALLOW ---
Care Team Visit Care Team Role Provider Type Serina Smith DO Emergency Provider Physician Specialty: Emergency Medicine Address: [address] [place] [address], [id number] Email: Shannan Beverly DO Admit Provider Physician Attending Provider Specialty: Internal Medicine Address: [address] [place] [address], [id number] Email: Modified Barium Swallow Study CORRUGATED FASTENER DRIVER Modified Barium Swallow Study Start: 09/25/18 14:53 Freq: Status: Active Protocol: Document 09/25/18 14:53 LNK (Rec: 09/25/18 15:15 [id number]) Modified Barium Swallow Study Total Time Visit Start Time 13:30 Visit Stop Time 14:15 Total Visit Minutes [address] Beverly Setting Setting Acute Care Patient Information Identification Type Name ID Wristband Patient History Pt is an 83-year-old male patient with history significant for myocardial infarction, atrial fibrillation, CHF with reduced ejection fraction, hypertension, aortic aneurysm status post repair, T&A, central retinal artery occlusion, vascular dementia with behavioral disturbances and right AKA presented to the emergency department for complaints of weakness. Pt had slid off chair sustaining no trauma and was unable to get. Pt has had increasing frequency of falls with an increase in need for assistance to get up including response by emergency services. Pt lives at home with his . Pt states he has had no recent complaints of illness and had undergone left eye surgery for persistent elevated intra- ocular pressure with placement of a stent 3 weeks ago. He is on multiple eyedrops which are yet to be clarified. Pt's daughter, who accompanied him in the ER, reported that he coughs while he eats. On chest x-ray, pt is found to have right upper lobe pneumonia and cardiac echo completed 4 days ago shows an EF of 30-45% with akinesis consistent with prior apical and septal infarct. If further notes that there is no change compared with study done on . Respiratory panel was completed which is found to be negative. Subjective Observations Pt was taken to floroscopy, where he was seated in position for the MBS procedure . pt presented as confused, oriented to self only. Difficulty following directions. Patient Positioning Position View Lateral Imaging Lateral View Textures Administered Trials Presented Thin Liquid via Spoon Thin Liquid via Cup [place] Liquid via Spoon [place] Liquid via Cup Honey Liquid via Spoon Regular Textures Oral Phase Source: MBSIMP (TM) (C) Bolus Specific Scoring Grid Lip Closure WFL Tongue Control During Bolus Hold WFL Bolus Prep/Mastication Mild Impairment Bolus Transport/Lingual Motion Moderate Impairment A/P Lingual Propulsion Delay Yes: Rocking of tongue body at initiation of bolus propulsion Number of Seconds Delayed (seconds) ~2-3 Oral Residue Moderate Impairment Residue Clearing Moderate Impairment Nasal Regurgitation No Additional Oral Phase Observations Moderately severe oral phase dysphagia secondary to poor dentition which impacts mastication and bolus formation/control for solids. Tongue base weakness, tongue base rocking to initiate propulsion A-P Pharyngeal Phase Source: MBSIMP (TM) (C) Bolus Specific Scoring Grid Delayed Initiation of Pharyngeal Swallow Yes Number of Seconds Delayed (seconds) ~2-3 Soft Palate Elevation Minimal Impairment Tongue Base Strength/Range of Motion Moderate Impairment Residue Along the Tongue Base Yes Clearance of Residue Along Tongue Base Moderate Impairment Laryngeal Elevation Moderate Impairment Anterior Hyoid Movement Severe Impairment Epiglottic Range of Motion Severe Impairment Vallecular Residue Yes: Pooling in valeculla does not clear due to incomplete inversion Clearance of Vallecular Residue Severe Impairment Laryngeal Vestibular Closure Severe Impairment Posterior Pharyngeal Wall Residue Yes Clearance of Posterior Pharyngeal Wall Severe Impairment Residue Upper Esophageal Sphincter Opening Minimal Impairment Residue in the Pyriform Sinuses Yes Clearance of Residue in the Pyriform Severe Impairment Sinuses Esophageal Clearance Upright Position Minimal Impairment Pharyngoesophageal Backflow Observed No Additional Pharyngeal Phase Observations Severe pharyngeal dysphagia with SILENT penetration and aspiration of most PO trials and or pharyngeal residue. Significant residual pooling in the valeculla as well as the pyriform sinuses. Pt was observed to aspirate residual on second/third swallows following initial trial several times during the study . Reduced hyolaryngeal elevation with minimal forward excursion of the hyoid bone with no posterior pharyngeal wall contraction observed. This impacts the elevation of the laryngeal system negatively impacting the ability of the epiglottis to invert, thereby reducing airway protection. Penetrated residue along the anterior wall of the thyroid lamina was observed to flow to the level of and below the vocal folds into the trachea. Advanced textures were not able to clear the valeculla, increasing risk of aspirating solid foods. A/P View Esophageal Observations Esophageal Function A-P view did not allow for observation of the esophagus below the UES. Clinical Impressions Dysphagia Type Moderate to severe oropharyngeal dysphagia Findings High aspiration risk secondary to SILENT penetration/ aspiration of PO trials, especially liquids. Thin liquids aspirated on all trials. [place] thick liquids VIA TEASPOON was observed to produce the least risk for aspiration. Honey thick liquid trials resulted in extensive pooling within the pharynx, increasing aspiration risk. the incomplete inversion of the epiglottis resulted in significant vallecular pooling, which further then flowed down the aerepiglottc folds into the pyriform sinuses. Soft foods with minimal texture (dysphagia mechanical) appeared to result in less residue within the valeculla. Dysphagia mechanical texture appeared to be the least restrictive texture for swallowing; although there remains a high aspiration risk of all PO intake. Pt was unable to follow directions and required several cues and/or demonstration in order to follow through with safe swallowing strategies. NPO is recommended at this time. If pt's family and MD decide to continue with PO intake the safest/least restrictive diet would be dysphagia mechanical texture with nectar thick liquids by TEASPOON only. Additionally, 1:1 supervision and/or assisted feeding, bolt upright at 90 degrees, with small amounts only is recommended. Finally, pt should remain upright at 90 degrees for 20- 30 minutes following all PO. Medications in a carrier. Rehabilitation Potential Poor Patient Appropriate for Therapy No Recommendations Diet Liquids Order NPO Diet Order NPO/Alternative Means of Nutrition/Hydration Medication Recommendation Not Recommended by Mouth Comments See notes above if PO intake is family/MD decision Aspiration Precautions Recommended Precautions Upright at 90 Degrees Treatment Plan Additional Recommended Referrals If PO is opted for ST can follow up as indicated Placement Recommendation After Discharge [facility] Facility [facility]
--- NOTE | 2018-09-25 16:33 | OT.IP.TRT ---
Current Diagnoses Pneumonia, unspecified organism (09/24/18) Occupational Therapy Treatment Note M3 OT- IP Subjective and Pain Start: 09/25/18 16:32 Freq: Status: Active Protocol: Document 09/25/18 16:32 [facility] (Rec: 09/25/18 16:33 [facility] [id number]) OT- Subjective Occupational Therapy Visit Type Type Administrative Note Notes Pt just completed swallow study and therefore to see pt for OT eval tomorrow.
--- NOTE | 2018-09-25 17:31 | ST.IPCSEOM ---
Care Team Visit Care Team Role Provider Type Serina Smith DO Emergency Provider Physician Specialty: Emergency Medicine Address: [address] [place] [address], [id number] Email: Shnanan Beverly DO Admit Provider Physician Attending Provider Specialty: Internal Medicine Address: [address] [place] [address], [id number] Email: Current Diagnoses Pneumonia, unspecified organism (09/24/18) Past Medical History (Last Updated 09/25/18 @ 03:46 by HAYDEE Gallardo) Color blind (Acute Medical) CRVO (central retinal vein occlusion) (Acute Medical) Dementia (Acute Medical) HTN (hypertension) (Acute Medical) TIA (transient ischemic attack) (Acute Medical) AAA (abdominal aortic aneurysm) (Chronic Medical) with repair Atrial fibrillation (Chronic Medical) Bilateral renal artery stenosis (Chronic Medical) Dyslipidemia (Chronic Medical) Peripheral vascular disease (Chronic Medical) Thrombocytopenia (Chronic Medical) Intracerebral bleed (Resolved Medical) Speech-Language Pathology Swallow Evaluation CONTRACT CONSULTANT Clinical Instructor Line Start: 09/25/18 13:08 Freq: Status: Active Protocol: Document 09/25/18 16:25 LNK (Rec: 09/25/18 16:25 LNK [email or web address]) Clinical Instructor Signature Clinical Instructor Clinical Instructor Yes: Lexis Mullins, PhD , [facility])-CONTRACT CONSULTANT CONTRACT CONSULTANT Clinical Swallow Evaluation Start: 09/25/18 13:08 Freq: Status: Active Protocol: Document 09/25/18 13:08 MG (Rec: 09/25/18 13:37 MG [id number]) Clinical Swallow Evaluation Session Time Visit Start Time 11:20 Visit Stop Time 11:55 Total Visit Minutes 35 Visit Information Visit Number 1 Setting Assessment Location Acute Care Visit Type Note Type Initial Evaluation Next Note Type Next Note Type Treatment Note Patient Information Identification Type Name ID Wristband History Pt is an 83-year-old male patient with history significant for myocardial infarction, atrial fibrillation, CHF with reduced ejection fraction, hypertension, aortic aneurysm status post repair, T&A, central retinal artery occlusion, vascular dementia with behavioral disturbances and right AKA presents to the emergency department for complaints of weakness. Pt had slid off chair sustaining no trauma and was unable to get. Pt has had increasing frequency of falls with an increase in need for assistance to get up including response by emergency services. Pt lives at home with his . Pt states he has had no recent complaints of illness and had undergone left eye surgery for persistent elevated intra- ocular pressure with placement of a stent 3 weeks ago. He is on multiple eyedrops which are yet to be clarified. Pt's daughter, who accompanied him in the ER, reported that he coughs while he eats. On chest x-ray, pt is found to have right upper lobe pneumonia and cardiac echo completed 4 days ago shows an EF of 30-45% with akinesis consistent with prior apical and septal infarct. If further notes that there is no change compared with study done on . Respiratory panel was completed which is found to be negative. Subjective Observations Pt was found upright in chair seated close to bedside. Pt reported that he was feeling a bit nauseous and that his nausea comes in waves. Student CONTRACT CONSULTANT provided pt with a emesis bag in case of a vomiting incident. Pt was agreeable to swallow evaluation from student CONTRACT CONSULTANT and CONTRACT CONSULTANT. Pt appeared slightly disoriented, as noted by his inability to follow verbal directions at times. Evaluation Liquids Trialed Ice Chips Thin [place] Solids Trialed Dysphagia Mechanical Mechanical Soft Administration Type Tea Spoon Cup Single Sip Straw Self-Feeding Dependent Feeding Oral Impairment Moderately Impaired Oral Phase Comments OME noted adequate ROM and strength for mastication. Pt has no dentures, but noted poor dentition. Many cavity crowns were seen. During mechanical soft trials, noted moderate residue in oral cavity. Thin liquid wash appeared to clear out the majority of residue. Pt was observed to take an abnormally long time masticating mechanical soft texture. Pt noted that it was harder for him to chew. Pharyngeal Impairment Mildly Impaired Pharyngeal Phase Comments Palpation of larynx noted little anterior movement of hyoid with reduced hyolaryngel elevation. Pt did not have overt s/sx of aspiration during thin trials of cup sip and single straw sip. Pt did not have a wet voice. Isolated immediate cough after teaspoon of thin was observed. However, all other trials were noted to not have the incident. Pt did not have overt s/sx of aspiration on all nectar trials. O2 levels were observed as well to drop. However, pt's O2 monitor was slipping off finger for multiple observations. O2 dropped to low 80's when eating mechanical soft texture . Findings Dysphagia Type Oropharyngeal dysphagia Rehabilitation Potential Good Impressions Pt has noted dysphagia and is currently on a modified diet. MBS is warranted to observe pharyngeal phase during liquid trials. MBS will be completed later today to determine least restrictive and safest diet for the pt. Pt has a difficult time following verbal directions, which may be due to dememtia diagnosis. Aspiration Precautions Recommended Precautions Upright at 90 Degrees Small Bites/Sips Treatment Plan Therapy Recommendations Pt is scheduled for a MBS to be completed later today.
[2018-09-25] MEDS: QUETIAPINE 25 MG TABLET 12.5 MG PO (21:01)
[2018-09-25] MEDS: BUSPIRONE 5 MG TABLET 1.25 MG PO (21:03)
[2018-09-25] MEDS: DUREZOL 1 EACH EYE-LEFT (21:05)
[2018-09-25] MEDS: MIRTAZAPINE 15 MG TABLET 7.5 MG PO (21:09)
[2018-09-25] MEDS: LATANOPROST EYE-RIGHT (21:10)
[2018-09-25] MEDS: [UNRECOGNIZED DRUG - OTHER] EYE-RIGHT (21:10)
--- NOTE | 2018-09-25 22:42 | PC.NURSE ---
chastity note pt confused but pleasant. No overt s/s of aspirations during evening meal. Pt more agitated as evening progressed, trying to get OOB and go home. Now pt thinks he is at home and there is a man in his room. Pt becoming more agitated, angry, using some profanity. Called on-call HAYDEE Valdez to report. New order for additional seraquel. Unable to give med due to pt agitation. Called HAYDEE back to report; coming to see pt.
[2018-09-26] MEDS: HALOPERIDOL 5 MG/ML VIAL IV ×2 (00:45→18:35)
[2018-09-26] MEDS: SODIUM CHLORIDE 0.9% FLUSH 10 ML IV ×4 (00:46→21:17)
--- NOTE | 2018-09-26 01:26 | PC.NURSE ---
At beginning of shift, 2330, patient is very agitated and hallucinating, yelling and swinging. Staff is unable to take vital signs or do assessment at this time, but he is in constant obs for safety. 0045-0.5mg IV Haldol given x1 as ordered, patient continues to swing and attempt to kick at staff, says I will go get my gun and shoot you all Lights off, trying to decrease stimuli as much as possible.
[2018-09-26] MEDS: CEFTRIAXONE 1 GM/50 ML FROZ.PIGGY IV ×2 (02:09→14:40)
[2018-09-26 02:33] VITALS: BP 134/56; PULSE 62; RESP 12; TEMP 37.2; O2SAT 95
[2018-09-26 07:00] VITALS: BP 138/69; PULSE 60; RESP 18; TEMP 36.6; O2SAT 92
--- NOTE | 2018-09-26 09:50 | PT.IPTN ---
Current Diagnoses Pneumonia, unspecified organism (09/24/18) Physical Therapy Treatment Note M2 PT-IP Current Condition Start: 09/25/18 08:04 Freq: NEEDED Status: Active Protocol: Document 09/25/18 10:30 RS (Rec: 09/25/18 13:57 RS [email or web address]) Physical Therapy Current Condition Current Condition Evaluation Date 09/25/18 Treatment Diagnosis pneumonia, weakness, poor skin integrity Onset Date 09/24/18 M3 PT-IP Subjective Start: 09/25/18 08:04 Freq: NEEDED Status: Active Protocol: Document 09/26/18 09:50 CLB (Rec: 09/26/18 11:02 CLB [id number]) Subjective Physical Therapy Visit Type Type Patient Unavailable Notes Hold this morning per RN, pt just went to sleep, he had been up a lot last night and had been aggitated. M4 PT-IP Mobility and Gait Start: 09/25/18 08:04 Freq: NEEDED Status: Active Protocol: Document 09/25/18 10:30 RS (Rec: 09/25/18 13:57 RS [email or web address]) PT-Bed Mobility Assessment Rolling Type of Rolling Roll to Left Level of Assist Moderate Assistance Supine to Sit Supine to Sit Moderate Assistance Scooting Scooting to Edge of Bed Contact Guard Assistance PT-Transfer Assessment Sit to and From Stand Sit to and from Stand Minimal Assistance Equipment Transfer Assistive Device Gait Belt Front Wheeled Walker Transfers Transfer Destination Bed Chair Transfer Technique Stand Pivot Transfer Ability Level of Assist Minimal Assistance Comments Mobility Comments Pt originally trying to sit straight up in bed but unable to do so and describing increase pain in buttocks. Log to L was utilized to prevent skin shearing on buttocks quite as much. Pt suprisingly needed mod A to roll onto L side and then mod A up to sitting with step by step instructions. Once sitting EOB pt was SBA<>CGA to maintain balance but also not able to fully unweight buttocks during scooting to EOB. Gait Assessment Comments Gait Comments pt is nonambulatory at baseline, gait not tested PT-Balance Assessment Sitting Balance and Reactions Static Sitting Balance Ability Fair Dynamic Sitting Balance Ability Poor Standing Balance and Reactions Static Standing Balance Ability Fair Dynamic Standing Balance Ability Poor Device Used FWW M5 PT-IP Objective Assessments Start: 09/25/18 08:04 Freq: NEEDED Status: Active Protocol: Document 09/25/18 10:30 RS (Rec: 09/25/18 13:57 RS [email or web address]) Orientation Orientation/Cognition Level of Alertness Alert Gross Range of Motion Upper Extremity ROM Assessment Within Functional Limits Lower Extremity ROM Assessment Within Functional Limits Strength Comments Strength Comments grossly 3+ to 4/5 M6 PT-IP Treatment Start: 09/25/18 08:04 Freq: NEEDED Status: Active Protocol: Document 09/25/18 10:30 RS (Rec: 09/25/18 13:57 RS [email or web address]) Physical Therapy Treatment Education Education Provided Safety M7 PT-IP Assessment and Plan Start: 09/25/18 08:04 Freq: NEEDED Status: Active Protocol: Document 09/25/18 10:30 RS (Rec: 09/25/18 13:57 RS [email or web address]) PT Summary Assessment and Plan Potential Rehabilitation Potential Fair Status of Condition at Evaluation Evolving Summary Impairments Pain Strength Balance Cognition Bed Mobility Transfers Gait Activity Tolerance Assessment Summary Pt presents with gross deconditioning in addition to chronic pain and impaired cognition. Pt's buttock pain likely caused at least in part by poor transfer/scooting techniques. Pt needing significantly more help than normal but does have potential for functional improvement. Recommend pt transition to SNF rehab once medically ready to participate in daily low intensity skilled therapies. Goals Bed Mobility Goal Contact Guard Assistance Transfer Goal Contact Guard Assistance Days to Meet Goals 4 Frequency of Treatment Frequency Of Treatment Once a Day Treatment Plan Physical Therapy Treatment Plan Bed Mobility Training Transfer Training Therapeutic Exercise Balance Retraining Other Recommendations and Next Treatment bed mobility specifically Focus scooting with better buttock clearance, strength, transfers Recommendations To Nursing Amount of Assist Needed 2 Person Assist Discharge Recommendations PT Discharge Recommendations SNF Rehab
--- NOTE | 2018-09-26 10:11 | OT.IP.TRT ---
Current Diagnoses Pneumonia, unspecified organism (09/24/18) Occupational Therapy Treatment Note M3 OT- IP Subjective and Pain Start: 09/25/18 16:32 Freq: Status: Active Protocol: Document 09/26/18 10:09 ACE (Rec: 09/26/18 10:10 ACE [id number]) OT- Subjective Occupational Therapy Visit Type Type Administrative Note Notes Per RN, pt very confused and agitated this AM so not appropriate for therapy services today. Will continue to follow.
--- NOTE | 2018-09-26 13:30 | PT.IPTN ---
Current Diagnoses Pneumonia, unspecified organism (09/24/18) Physical Therapy Treatment Note M2 PT-IP Current Condition Start: 09/25/18 08:04 Freq: NEEDED Status: Active Protocol: Document 09/25/18 10:30 RS (Rec: 09/25/18 13:57 RS [email or web address]) Physical Therapy Current Condition Current Condition Evaluation Date 09/25/18 Treatment Diagnosis pneumonia, weakness, poor skin integrity Onset Date 09/24/18 M3 PT-IP Subjective Start: 09/25/18 08:04 Freq: NEEDED Status: Active Protocol: Document 09/26/18 13:30 CLB (Rec: 09/26/18 15:41 CLB [id number]) Subjective Physical Therapy Visit Type Type Patient Unavailable Notes Pt unavailable pt working with ST and then Dr Beverly was in room. M4 PT-IP Mobility and Gait Start: 09/25/18 08:04 Freq: NEEDED Status: Active Protocol: Document 09/25/18 10:30 RS (Rec: 09/25/18 13:57 RS [email or web address]) PT-Bed Mobility Assessment Rolling Type of Rolling Roll to Left Level of Assist Moderate Assistance Supine to Sit Supine to Sit Moderate Assistance Scooting Scooting to Edge of Bed Contact Guard Assistance PT-Transfer Assessment Sit to and From Stand Sit to and from Stand Minimal Assistance Equipment Transfer Assistive Device Gait Belt Front Wheeled Walker Transfers Transfer Destination Bed Chair Transfer Technique Stand Pivot Transfer Ability Level of Assist Minimal Assistance Comments Mobility Comments Pt originally trying to sit straight up in bed but unable to do so and describing increase pain in buttocks. Log to L was utilized to prevent skin shearing on buttocks quite as much. Pt suprisingly needed mod A to roll onto L side and then mod A up to sitting with step by step instructions. Once sitting EOB pt was SBA<>CGA to maintain balance but also not able to fully unweight buttocks during scooting to EOB. Gait Assessment Comments Gait Comments pt is nonambulatory at baseline, gait not tested PT-Balance Assessment Sitting Balance and Reactions Static Sitting Balance Ability Fair Dynamic Sitting Balance Ability Poor Standing Balance and Reactions Static Standing Balance Ability Fair Dynamic Standing Balance Ability Poor Device Used FWW M5 PT-IP Objective Assessments Start: 09/25/18 08:04 Freq: NEEDED Status: Active Protocol: Document 09/25/18 10:30 RS (Rec: 09/25/18 13:57 RS [email or web address]) Orientation Orientation/Cognition Level of Alertness Alert Gross Range of Motion Upper Extremity ROM Assessment Within Functional Limits Lower Extremity ROM Assessment Within Functional Limits Strength Comments Strength Comments grossly 3+ to 4/5 M6 PT-IP Treatment Start: 09/25/18 08:04 Freq: NEEDED Status: Active Protocol: Document 09/25/18 10:30 RS (Rec: 09/25/18 13:57 RS [email or web address]) Physical Therapy Treatment Education Education Provided Safety M7 PT-IP Assessment and Plan Start: 09/25/18 08:04 Freq: NEEDED Status: Active Protocol: Document 09/25/18 10:30 RS (Rec: 09/25/18 13:57 RS [email or web address]) PT Summary Assessment and Plan Potential Rehabilitation Potential Fair Status of Condition at Evaluation Evolving Summary Impairments Pain Strength Balance Cognition Bed Mobility Transfers Gait Activity Tolerance Assessment Summary Pt presents with gross deconditioning in addition to chronic pain and impaired cognition. Pt's buttock pain likely caused at least in part by poor transfer/scooting techniques. Pt needing significantly more help than normal but does have potential for functional improvement. Recommend pt transition to SNF rehab once medically ready to participate in daily low intensity skilled therapies. Goals Bed Mobility Goal Contact Guard Assistance Transfer Goal Contact Guard Assistance Days to Meet Goals 4 Frequency of Treatment Frequency Of Treatment Once a Day Treatment Plan Physical Therapy Treatment Plan Bed Mobility Training Transfer Training Therapeutic Exercise Balance Retraining Other Recommendations and Next Treatment bed mobility specifically Focus scooting with better buttock clearance, strength, transfers Recommendations To Nursing Amount of Assist Needed 2 Person Assist Discharge Recommendations PT Discharge Recommendations SNF Rehab
--- NOTE | 2018-09-26 14:37 | PM.PN.1 ---
Subjective Date Patient Seen: 09/27/18 Interval history: Hilario Lopez is an 83-year-old male patient with history significant for myocardial infarction, atrial fibrillation, CHF with reduced ejection fraction, hypertension, aortic aneurysm status post repair, T&A, central retinal artery occlusion, vascular dementia with behavioral disturbances and right AKA presents to the emergency department for complaints of weakness. Interval history: Patient got significantly combative overnight and was given Haldol in addition to scheduled Seroquel at bedtime. Patient likely sundowns. The patient is resting in bed comfortably. He is the most lucid I have seen him this hospitalization. Discussed the patient has advanced vascular dementia and likely severe oropharyngeal dysphagia with the patient in detail. His and daughter at bedside. Continue to discuss goals of care and have decided to make patient comfort care only. Plan today is to have Psychiatry evaluate patient to help with behavioral disturbance especially at night with sundowning. Also will arrange for hospice informational visit in the next several days. Exam Vital Signs (past 8 hours): - 09/26/18 16:31 09/26/18 16:40 Temperature 99.0 F Pulse Rate 63 Respiratory Rate 20 Blood Pressure 104/50 L 104/50 L Pulse Oximetry 94 Oxygen Delivery Method Room Air Oxygen Flow Rate 0 Narrative Exam Narrative: General: Elderly frail and cachectic appearing gentleman sitting in bedside chair and in no acute distress, advanced vascular dementia with fluctuating mentation. HEENT: Normocephalic, atraumatic. External ears without defect. Pupils unequal L>R, round, and reactive to light. Conjunctival injection of left eye. Anicteric sclerae, moist conjunctivae. Oropharynx free of erythema and cobble stoning with moist mucosa. Neck: Supple with full range of motion. No jugular venous distension. No lymphadenopathy or thyromegaly. Cardiovascular: Irregularly irregular without murmurs, rubs, or gallops appreciated. Pulmonary: Clear to auscultation bilaterally without crackles, wheezes, or rhonchi. Normal respiratory effort with no use of accessory muscles. Abdomen: Bowel tones present. Soft, non-tender, non-distended. No hepatosplenomegaly or masses appreciated. Extremities: No clubbing, cyanosis, or edema. Right lower extremity ROSEMARY. Skin: Normal temperature, turgor, and texture; no rash, ulcers, or subcutaneous nodules appreciated. Neurological: Cranial nerves grossly intact. Psychiatric: Patient's mentation fluctuates. He at times is very lucid, cooperative, and pleasant. At other times he is confused, hallucinating, and quite aggressive verbally. Advanced vascular dementia. Objective Labs Result Diagrams: 09/25/18 04:43 09/25/18 04:43 Assessment & Plan Assessment & Plan narrative: Hilario Lopez is an 83-year-old male patient with history significant for myocardial infarction, atrial fibrillation, CHF with reduced ejection fraction, hypertension, aortic aneurysm status post repair, T&A, central retinal artery occlusion, vascular dementia with behavioral disturbances and right AKA presents to the emergency department for complaints of weakness. 1. Comfort care. -Patient has significantly advanced vascular dementia with severe oropharyngeal dysphagia with likely a neurovascular component and chronic aspiration with any and all types of food. -Discussed goals of care in great detail. Patient's family would like to make patient comfort care only at this time. Arranging for hospice informational visit. Consulted Psychiatry to help with behavioral component of dementia as patient's behavior can be quite combative and verbal. -Ordered Haldol 0.5 mg PO daily at bedtime and will titrate as needed. Also ordered 0.5 mg IV Haldol every 6 hours as needed for agitation. -Ordered comfort medications including: Morphine 1 mg IV every 6 hours as needed. -Allow patient to eat for comfort only. 2. Chronic significant oropharyngeal dysphagia, possibly neurovascular, present on admission. Active. -Reports of patient choking and coughing while eating. -Chest x-ray shows right upper lobe pneumonia -Consulted speech therapy who evaluated patient and reports that patient silently aspirates on every texture of food that was trialed. Not safe for patient to swallow. Family would like to lower the patient eat for comfort and are leaning towards full comfort care in regards to medical therapies. 3. Acute aspiration pneumonia, present on admission. Resolving. -Patient presented with fever and increasing weakness with history of chronic dysphagia. -Chest x-ray demonstrated right upper lobe pneumonia. -Initial WBC 16.3 and procalcitonin 0.08. -Respiratory viral PCR negative. -Completed azithromycin 500 mg IV daily for 3 days and continue ceftriaxone 1 g every 12 hours for total of 5 days to complete course of treatment for pneumonia unless instructed otherwise by family. Any recurrent pneumonia will not treat in the future. 4. Acute on chronic generalized weakness, with severe protein calorie malnutrition and failure to thrive, present on admission. Active. 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 He does not use use prosthesis and is able to self transfer/use wheelchair for mobility. Patient with progressive debility and frequent falls with calls to EMS. -Patient with neuropathy of the right stump. Continue gabapentin 300 mg 3 times daily. Continue comfort meds as above. 5. Chronic glaucoma with recent eye surgery, present on admission. Stable. -Patient has bilateral glaucoma and recent central retinal vein occlusion of left eye with stent placement left eye following acute glaucoma. Appears infected in added erythromycin eyedrops. Continued latanoprost and durezol eyedrops. -Patient has some vision in left eye but is unable to count fingers at 8 inches. -Left eye appears infected in added erythromycin eye drops. Continued home latanoprost and durezol eye drops. 6. Chronic advanced vascular dementia with likely frontal lobe disease and behavioral disturbance, present on admission. Stable. -Patient is unable manage his medications independently and his daughter Yolie who lives in [place] has been assisting with medications. -Patient with behavioral manifestations including agitation, verbal aggression, and refusal to take medications. -Discontinued sertraline 50 mg daily and buspirone 12.5 mg daily. -Continue mirtazapine 7.5 mg at bedtime. -Consulted psychiatry to help with behavioral disturbance especially in the evenings with . Continue haldol titrated to behavior as above. 7. Chronic atrial fibrillation, present on admission. Stable. -Recent echocardiogram 09/24 demonstrated HFrEF of 30-35%, preserved renal function and previous apical septal UT with akinesis without change compared to exam on 07/07/2015. -Continue Coreg 12.5 mg twice daily, hydralazine 25 mg twice daily, isosorbide 30 mg daily and clopidogrel 75 mg daily. 8. Hypertension, chronic, present on admission. Stable. -Continue Coreg 12.5 mg twice daily, hydralazine 25 mg twice daily and isosorbide 30 mg daily. 9. Hyperlipidemia, chronic, present on admission. Stable -Continue atorvastatin 80 mg daily. Disposition: Patient likely to discharge in 1-2 days to longterm facility with comfort care versus hospice at home or skilled private pay. Quality VTE Deep Vein Thrombosis/Pulmonary Embolism Present on Admission: No
[2018-09-26] MEDS: ATORVASTATIN 20 MG TABLET 80 MG PO (14:44)
[2018-09-26] MEDS: DUREZOL 1 EACH EYE-LEFT ×2 (14:45→21:12)
[2018-09-26] MEDS: CLOPIDOGREL 75 MG TABLET PO (14:45)
[2018-09-26] MEDS: CARVEDILOL 12.5 MG TABLET PO ×2 (14:45→21:12)
[2018-09-26] MEDS: GABAPENTIN 300 MG CAPSULE PO ×2 (14:46→21:13)
[2018-09-26] MEDS: ISOSORBIDE MONONITRATE ER 30 MG TABLET PO (14:46)
[2018-09-26] MEDS: SERTRALINE 50 MG TABLET PO (14:46)
[2018-09-26] MEDS: HYDRALAZINE 25 MG TABLET PO ×2 (14:46→21:14)
[2018-09-26] MEDS: TRAMADOL 50 MG TABLET PO (14:48)
--- NOTE | 2018-09-26 15:40 | DIET.PN ---
Diet consult r/t low MNA score. Pt confused. Diet: dysphagia mech w/NT liq MNA socre: 4 r/t decreased PO intake, decr mobility, severe dementia. Wt change unknown. BMI: 18.7 Assessment: Very low BMI, eating minimal POs so far r/t confusion. High risk for nutritional compromise Intervention: Provide ONS w/meals Plan will try to f/u w/ to fill in some answers/complete assessment
--- NOTE | 2018-09-26 16:20 | ST.IPDYTX ---
Care Team Visit Care Team Role Provider Type John Nuñez MD Other Providers Physician Specialty: Psychiatry Address: [facility], [place], [address] Email: Serina Smith DO Emergency Provider Physician Specialty: Emergency Medicine Address: [address] [place] [address], [id number] Email: Shannan Beverly DO Admit Provider Physician Attending Provider Specialty: Internal Medicine Address: [address] [place] [address], [id number] Email: CRYSTAL EVALUATOR Dysphagia Treatment CRYSTAL EVALUATOR Clinical Instructor Line Start: 09/25/18 13:08 Freq: Status: Active Protocol: Document 09/25/18 16:25 LNK (Rec: 09/25/18 16:25 LNK [id number]) Clinical Instructor Signature Clinical Instructor Clinical Instructor Yes: Lexis Mullins, PhD , [facility]-CRYSTAL EVALUATOR CRYSTAL EVALUATOR Dysphagia Treatment Start: 09/26/18 16:10 Freq: Status: Active Protocol: Document 09/26/18 16:14 LNK (Rec: 09/26/18 16:18 LNK [id number]) Dysphagia Treatment Session Time Visit Start Time 13:15 Visit Stop Time 14:00 Total Visit Minutes 45 Setting Assessment Location Acute Care Visit Type Note Type Treatment Note Patient Information Identification Type Name ID Wristband Subjective Observations Pt in bed tired Treatment Treatment Activities Discussed the results of the MBS with Dr. Beverly and the family. Explained the high aspiration risk and poor overall prognosis with rehab/ swallowing therapy secondary to pt's diminished cognitive skills. Pt's daughter, DPOA, was present in discussion. Dr Griselda Beverly recommended minimal intervention/comfort care/ Hospice during this discussion . Pt's daughter will discuss the current situation with pt' s and get back to Dr. Beverly. Given the pt's status and poor prognosis, ST will discharge at this time. Assessment Patient Response to Treatment Unable to Participate Rehab Potential Poor Diet Recommendations Liquids Order NPO Comments Pt will be comfort care/ Hospice -- comfort feeding only Additional Dietary Needs 1:1 Supervision 1:1 Assistance Aspiration Precautions Recommended Precautions Upright at 90 Degrees Treatment Plan Placement Recommendation after Discharge Nursing Home Care Facility Other Appropriate for Continued Therapy No Follow Up Plan ST to discharge at this time
[2018-09-26 16:31] VITALS: BP 104/50; PULSE 63; RESP 20; TEMP 37.2; O2SAT 94
[2018-09-26 16:40] VITALS: BP 104/50
--- NOTE | 2018-09-26 16:55 | CM.DANOTE ---
DCP continued: Reviewed chart. Returned phone call to patient's daughter/Isadora this AM. Met with both spouse/Catalina and daughter this afternoon explained role. Per medical team patient unable to swallow safely therefore, continues to aspirate. Patient's paperwork indicates that he does not want feeding tube. Patient currently DNR and family interested in obtaining hospice informational visit. Placed call to Hospice admit, spoke with Mariah. Clinical faxed. Currently they are unsure if they can do informational visit tomorrow 09-27 or 09-28? Mariah plans to call family to confirm. After discussion about d/c plan. Family are considering home with hospice. At first, spouse unsure if she wanted to have patient home but now feels that would be best option. Family plan to hire full-time caregivers to assist. Spouse hopeful that hospice can manage the medical and mental issues. D/C date pending when hospice can open, DME delivery and when caregivers 24/7 confirmed. Daughter shares DPOA and would like d/c planning questions to be deferred to her. P: Home with hospice when arrangements can be made/confirmed. Patient calm at time of MAGNETIC PROSPECTING SUPERVISOR visit however, has been agitated most of the day. Daughter offering to come in anytime to assist with behavior. RN aware. WALTER Stout
[2018-09-26] MEDS: HALOPERIDOL 5 MG/ML VIAL 2 MG IV (18:00)
--- NOTE | 2018-09-26 18:25 | PM.CN ---
History of Present Illness Date Patient Seen: 09/26/18 Time Patient Seen: 17:00 Chief complaint: Fell, weakness/confusion Reason for consult: Agitation Narrative: CC: ?I think my or year 10 years ago? HOSPITAL COURSE: Hilario Lopez is an 83-year-old male with a history of significant myocardial infarction atrial fibrillation congestive heart failure, hypertension, aortic aneurysm, other vascular pathologies, and vascular dementia who presented to the emergency department 2 days after a minor fall at home. The patient is an extremely on reliable historian and exhibits marked confusion of varying degrees throughout the interview. During the course of his exam it was discovered that the patient as difficulty swallowing to the point that food essentially goes down his trachea and often gets lodged at the branch point. On exam the patient was found to be febrile, tachypneic, any had a right upper lobe pneumonia. Because of the patient's severe dementia, he is noted to become somewhat abusive, belligerent, and combative at home. This same pattern was observed following his admission in the ICU. Last night the patient became extremely disoriented and was yelling abusive insults. He was given 12.5 mg of Seroquel which did not appear to touch him but then later was given half a mg of Haldol which seemed to calm him down and improve his mentation. COLLATERAL FROM STAFF: Nursing staff and the hospitalist note that the patient is normally quite pleasant to talk to even though he has a fairly severe dementia. In addition, the family has been quite attentive and expresses concern about his condition. INTERVIEW: The patient himself is unable to provide any coherent narrative regarding his current condition. His family reports that his distant memories are accurate for the most part with some occasional confabulation. But most of the details and the general point of his memory are correct. The patient is unable to complete the most basic points of mini mental status exam. Most of our discussion concerned long-term memories and the patient's current physical immediate complaints. PAST PSYCHIATRIC HISTORY: The patient has no past psychiatric history. SUBSTANCE USE HISTORY: Patient has no substance use history. FAMILY HISTORY: Unknown DEVELOPMENTAL/SOCIAL HISTORY: The patient was born and raised in [place] and completed high school there. 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 He is and raised his family here in [place]. PCP: SIGNIFICANT MEDICAL HISTORY: As above, see H&P. PFSH Medical History Color blind (Acute) CRVO (central retinal vein occlusion) (Acute) Dementia (Acute) HTN (hypertension) (Acute) TIA (transient ischemic attack) (Acute) AAA (abdominal aortic aneurysm) (Chronic) Atrial fibrillation (Chronic) Bilateral renal artery stenosis (Chronic) Dyslipidemia (Chronic) Peripheral vascular disease (Chronic) Thrombocytopenia (Chronic) Intracerebral bleed (Resolved) Surgical History AICD (automatic cardioverter/defibrillator) present (Chronic) 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) Social History marital status: household members: spouse occupational status: previously employed Smoking Status: Former smoker alcohol intake: never Social History marital status: household members: spouse occupational status: previously employed Smoking Status: Former smoker alcohol intake: never Meds Home Medications Medication Instructions Recorded Confirmed Type nitroglycerin [Nitrostat] 0.4 mg SUBLINGUAL PRN PRN #0 12/27/12 09/24/18 History atorvastatin [Lipitor] 80 mg PO DAILY 07/26/18 09/24/18 History buspirone 1.25 mg PO BEDTIME 07/26/18 09/24/18 History carvedilol [Coreg] 12.5 mg PO BID 07/26/18 09/24/18 History clopidogrel [Plavix] 75 mg PO DAILY 07/26/18 09/24/18 History hydralazine 25 mg PO BID 07/26/18 09/24/18 History sertraline [Zoloft] 50 mg PO DAILY 07/26/18 09/24/18 History isosorbide mononitrate 30 mg PO DAILY 08/04/18 09/24/18 History latanoprost 1 drp EYE-RIGHT BEDTIME 08/04/18 09/25/18 History mirtazapine 7.5 mg PO BEDTIME 08/04/18 09/24/18 History tramadol 50 mg PO TID PRN 08/04/18 09/24/18 History gabapentin 300 mg PO TID 09/24/18 09/24/18 History difluprednate [Durezol] 1 drp EYE-LEFT BID 09/25/18 09/25/18 History Allergies Allergy/AdvReac Type Severity Reaction Status Date / Time No Known Drug Allergies Allergy Verified 08/04/18 11:28 Exam Vital Signs (past 8 hours): - 09/26/18 16:31 09/26/18 16:40 Temperature 99.0 F Pulse Rate 63 Respiratory Rate 20 Blood Pressure 104/50 L 104/50 L Pulse Oximetry 94 Oxygen Delivery Method Room Air Oxygen Flow Rate 0 Narrative Exam Narrative: MENTAL STATUS EXAM: Appearance: Very slender, cachectic male seen lying in his hospital bed in the ICU dressed in hospital PJs. Appears stated age. Behavior: Friendly, calm, cooperative, good eye contact, no psychomotor agitation or slowing, no tremor or involuntary movements observed Gait: Not observed. Speech: Normal rate, volume, and larissa with some mumbling and inarticulate words. Mood: I?m real good. Affect: Congruent with content, normal range and reactivity Thought Process: Circumstantial, often confabulating, Thought Content: Denies suicidal ideation, denies homicidal ideation, denies hallucinations, no evidence of paranoia or delusions Attention: Attentive to interview Orientation: Oriented to person, but not place, time and circumstance. Memory: Poor, MMSE 3/30 Insight: Poor Judgment: Poor Objective Labs Result Diagrams: 09/25/18 04:43 09/25/18 04:43 Assessment & Plan Assessment & Plan narrative: ASSESSMENT: Mr. Lopez is an 83-year-old man with significant vascular pathologies and vascular dementia who now has severe neurovascular pharyngeal dysfunction and cannot protect his airway. Because of this he now has a right upper lobe pneumonia. He has been somewhat disoriented, confused and combative around but otherwise and for the most part he has been pleasant and friendly. DIAGNOSES: Vascular dementia Periodic Delirium and confusion RECOMMENDATIONS: 1. Haldol 0.5 mg QPM for PM agitation 2. May add Haldol IV Q6 hrs PRN for agitation. 3. Continue to provide visual cues as to names, location, time. 4. Continue to involve hospice for comfort care. 5. Reassure family regarding diagnosis and prognosis. Time Spent With Patient Time with patient: Greater than 35 minutes
[2018-09-26 20:00] VITALS: BP 122/52; PULSE 73; RESP 20; TEMP 37.3; O2SAT 89
[2018-09-26] MEDS: BUSPIRONE 5 MG TABLET 1.25 MG PO (21:09)
[2018-09-26] MEDS: ERYTHROMYCIN OPHTH 1 GM OINT 1 APPLIC EYE-LEFT (21:10)
[2018-09-26] MEDS: [UNRECOGNIZED DRUG - OTHER] EYE-RIGHT (21:13)
[2018-09-26] MEDS: LATANOPROST EYE-RIGHT (21:13)
[2018-09-26] MEDS: HALOPERIDOL 1 MG TABLET 0.5 MG PO (21:13)
[2018-09-26] MEDS: MIRTAZAPINE 15 MG TABLET 7.5 MG PO (21:15)
--- NOTE | 2018-09-26 21:39 | PC.NURSE ---
Very confuse and fustrated not knowing why he is here at the hospital
[2018-09-26 22:00] VITALS: O2SAT 95
--- NOTE | 2018-09-26 22:51 | PC.NURSE ---
chastity note pt initially calm, family at bedside, having multiple discussions with Dr. Beverly. Dr. Nuñez also in to see pt. provided a newly signed POLST form. After dinner, pt angry because he wanted to go home and sleep in his own bed with his and his dog. Pt angry at family and staff for not allowing him to leave. Security called to bedside as backup. 0.5 mg haldol given with no effect. Dr. Beverly back in to see family, notes pt's agitation. One time order received for 2 mg haldol, given with minimal effect at first. Pt very slowly calmed. Pt now talking about how he gets to leave in the morning. Able to give pt oral bedtime meds.
[2018-09-27] VITALS (10 sets, daily range): BP systolic 118–149; BP diastolic 53–71; PULSE 71–82; RESP 20; TEMP 36.8–37.6; O2SAT 92–94
[2018-09-27] MEDS: CEFTRIAXONE 1 GM/50 ML FROZ.PIGGY IV ×2 (00:31→14:08)
--- NOTE | 2018-09-27 08:00 | P.PN_ITS ---
Subjective Date Patient Seen: 09/27/18 Interval history: Hilario Lopez is an 83-year-old male patient with history significant for myocardial infarction, atrial fibrillation, CHF with reduced ejection fraction, hypertension, aortic aneurysm status post repair, T&A, central retinal artery occlusion, vascular dementia with behavioral disturbances and right AKA presents to the emergency department for complaints of weakness. Interval history: Patient continues to sundown at night and required Haldol 2 mg IV x1 to control behavior. The patient is resting comfortably in bedside chair. He is eating his breakfast. When I approached him he does not recognize or remember who I am. He continues to be alert and oriented only to person. Patient has advanced dementia and continually have to remind him while he is hospitalized and the decision to place him on hospice and let him eat for comfort due to his severe oropharyngeal dysphagia with significant aspiration. The patient continually reflects on his poor behavior and apologizes frequently. The patient is eating for comfort. Plan to place patient on hospice or comfort care with disposition to be determined. Hospice informational visit is scheduled for tomorrow. Exam Vital Signs (past 8 hours): - 09/27/18 00:18 09/27/18 00:21 09/27/18 00:22 Temperature 98.5 F Pulse Rate 72 Respiratory Rate 20 Blood Pressure 118/53 L Pulse Oximetry 92 92 92 Oxygen Delivery Method Room Air Oxygen Flow Rate 0 Narrative Exam Narrative: General: Elderly frail and cachectic appearing gentleman sitting in bedside chair and in no acute distress, advanced vascular dementia with fluctuating mentation. HEENT: Normocephalic, atraumatic. External ears without defect. Pupils unequal L>R, round, and reactive to light. Conjunctival injection of left eye. Anicteric sclerae, moist conjunctivae. Oropharynx free of erythema and cobble stoning with moist mucosa. Neck: Supple with full range of motion. No jugular venous distension. No lymphadenopathy or thyromegaly. Cardiovascular: Irregularly irregular without murmurs, rubs, or gallops appreciated. Pulmonary: Clear to auscultation bilaterally with scattered rhonchi. No crackles or wheezes. Normal respiratory effort with no use of accessory muscles. Abdomen: Soft, non-tender, non-distended. No hepatosplenomegaly or masses appreciated. Extremities: No clubbing, cyanosis, or edema. Right lower extremity ROSEMARY. Upper and lower extremity atrophy and muscle wasting. Skin: Normal temperature, turgor, and texture; no rash, ulcers, or subcutaneous nodules appreciated. Neurological: Cranial nerves grossly intact. Psychiatric: Patient's mentation fluctuates. He at times is very lucid, cooperative, and pleasant. At other times he is confused, hallucinating, and quite aggressive verbally. Advanced vascular dementia. Objective Labs Result Diagrams: 09/25/18 04:43 09/25/18 04:43 Assessment & Plan Assessment & Plan narrative: Hilario Lopez is an 83-year-old male patient with history significant for myocardial infarction, atrial fibrillation, CHF with reduced ejection fraction, hypertension, aortic aneurysm status post repair, T&A, central retinal artery occlusion, vascular dementia with behavioral disturbances and right AKA presents to the emergency department for complaints of weakness. 1. Comfort care. -Patient has significantly advanced vascular dementia with severe oropharyngeal dysphagia with likely a neurovascular component and chronic aspiration with any and all types of food. -Discussed goals of care in great detail. Patient's family would like to make patient comfort care only at this time. Arranging for hospice informational visit tomorrow. Consulted Psychiatry to help with behavioral component of dementia as patient's behavior can be quite combative and verbal. Psychiatry green is with Haldol and titrate as needed to control behavior. -Ordered Haldol 1 mg PO daily at bedtime and will titrate as needed. Also ordered 1 mg IV Haldol every 6 hours as needed for agitation. -Ordered comfort medications including: Morphine 1 mg IV every 6 hours as needed. -Allow patient to eat for comfort only. 2. Chronic significant oropharyngeal dysphagia, possibly neurovascular, present on admission. Active. -Reports of patient choking and coughing while eating. -Chest x-ray shows right upper lobe pneumonia. -Consulted speech therapy who evaluated patient and reports that patient silently aspirates on every texture of food that was trialed. Not safe for patient to swallow. Family would like to lower the patient eat for comfort and are leaning towards full comfort care in regards to medical therapies. 3. Acute aspiration pneumonia, present on admission. Resolving. -Patient presented with fever and increasing weakness with history of chronic dy sphagia. -Chest x-ray demonstrated right upper lobe pneumonia. -Initial WBC 16.3 and procalcitonin 0.08. -Respiratory viral PCR negative. -Completed azithromycin 500 mg IV daily for 3 days and continue ceftriaxone 1 g every 12 hours for total of 5 days to complete course of treatment for pneumonia unless instructed otherwise by family. Any recurrent pneumonia will not treat in the future. 4. Acute on chronic generalized weakness, with severe protein calorie malnutrition and failure to thrive, present on admission. Active. 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 He does not use use prosthesis and is able to self transfer/use wheelchair for mobility. Patient with progressive debility and frequent falls with calls to EMS. -Patient with neuropathy of the right stump. Continue gabapentin 300 mg 3 times daily. Continue comfort meds as above. 5. Chronic glaucoma with recent eye surgery, present on admission. Stable. -Patient has bilateral glaucoma and recent central retinal vein occlusion of left eye with stent placement left eye following acute glaucoma. Appears infected in added erythromycin eyedrops. Continued latanoprost and durezol eyedrops. -Patient has some vision in left eye but is unable to count fingers at 8 inches. -Left eye appears infected in added erythromycin eye drops. Continued home latanoprost and durezol eye drops. 6. Chronic advanced vascular dementia with likely frontal lobe disease and behavioral disturbance, present on admission. Stable. -Patient is unable manage his medications independently and his daughter Yolie who lives in [place] has been assisting with medications. -Patient with behavioral manifestations including agitation, verbal aggression, and refusal to take medications. -Discontinued sertraline 50 mg daily and buspirone 12.5 mg daily. -Continue mirtazapine 7.5 mg at bedtime. -Consulted psychiatry to help with behavioral disturbance especially in the evenings with . Continue haldol titrated to behavior as above. 7. Chronic atrial fibrillation, present on admission. Stable. -Recent echocardiogram 09/24 demonstrated HFrEF of 30-35%, preserved renal function and previous apical septal CT with akinesis without change compared to exam on 07/07/2015. -Continue Coreg 12.5 mg twice daily, hydralazine 25 mg twice daily, isosorbide 30 mg daily and clopidogrel 75 mg daily. 8. Hypertension, chronic, present on admission. Stable. -Continue Coreg 12.5 mg twice daily, hydralazine 25 mg twice daily and isosorbide 30 mg daily. 9. Hyperlipidemia, chronic, present on admission. Stable -Continue atorvastatin 80 mg daily. Disposition: Patient likely to discharge in 1-2 days to halfway facility with comfort care versus hospice at home or skilled private pay. Quality VTE Deep Vein Thrombosis/Pulmonary Embolism Present on Admission: No
[2018-09-27] MEDS: CARVEDILOL 12.5 MG TABLET PO ×2 (08:58→20:07)
[2018-09-27] MEDS: ATORVASTATIN 20 MG TABLET 80 MG PO (08:58)
[2018-09-27] MEDS: CLOPIDOGREL 75 MG TABLET PO (08:58)
[2018-09-27] MEDS: GABAPENTIN 300 MG CAPSULE PO ×3 (09:00→20:07)
[2018-09-27] MEDS: DUREZOL 1 EACH EYE-LEFT ×2 (09:00→20:08)
[2018-09-27] MEDS: HEPARIN 5,000 UNIT/ML VIAL 5000 UNIT SUBCUT ×2 (09:01→20:08)
[2018-09-27] MEDS: HYDRALAZINE 25 MG TABLET PO ×2 (09:01→20:05)
[2018-09-27] MEDS: ISOSORBIDE MONONITRATE ER 30 MG TABLET PO (09:01)
[2018-09-27] MEDS: SODIUM CHLORIDE 0.9% FLUSH 10 ML IV ×3 (09:02→20:08)
--- NOTE | 2018-09-27 13:09 | OT.IP.TRT ---
Current Diagnoses Pneumonia, unspecified organism (09/24/18) Occupational Therapy Treatment Note M3 OT- IP Subjective and Pain Start: 09/25/18 16:32 Freq: Status: Active Protocol: Document 09/27/18 13:09 ACE (Rec: 09/27/18 13:09 ACE [id number]) OT- Subjective Occupational Therapy Visit Type Type Administrative Note Notes Per chart notes, d/c plan is now home with comfort care/ hospice so OT to sign off. No charge.
--- NOTE | 2018-09-27 14:08 | CM.DPC ---
DCP Cont: Per MD, pt Comfort Care and had consult by Psychiatrist Dr. Nuñez for med management and recommendations and pt currently on Haldol for Comfort Meds and he had some sundowning behaviors earlier in his stay but seems to be well managed now on his current medications. Per , pt with terminal cancer and family originally wanted pt home with Hospice but now having some concerns about being able to manage him at home and interested in Hospice Informational Visit and possible facility under comfort care/hospice. SW called [facility] and confirmed that they are scheduled to do a Hospice Info Visit with family bedside tomorrow 09/28/18 around 1430. SW spoke to pt's Dtr/LILY Muir and updated her on the information given regarding SNF under [facility] benefit with Comfort that only 5 days covered and then family to pay room and board. Dtr very appreciative of this information. SW also discussed possibility of PEGG[facility] with Hospice (like [facility]) which would be less expensive than SNF. Dtr states that currently she is leaning towards SNF for Com[facility] under [facility] for 5 days while setting up likely [facility] at [facility] with [facility]. Preference would be [facility] first and then [facility] but Dtr and spouse will discuss further and speak with Hospice tomorrow during Info Visit to determine best d/c plan for the pt. Dtr Isadora also discussed the need for additional emotional support for pt's spouse (her mother) and requested [facility] Visit. SW called [facility] who will come bedside to support family today. SW also encouraged them to inquire about grief support through [facility] during info visit tomorrow and Dtr very appreciative. SW inquired with [facility] regarding pt d/c to them under Comfort and they would need to review further as some concerns with pt's previous behaviors. SW inquired with [facility] and they confirm that they have an open room and would be willing to review the pt with idea of him coming with Hospice and Haldol for Comfort Care and tentative cost of $235 a day that Dtr is aware of. BENY Good would be the contact ([phone]) for family if they would like to move forward with this plan. Plan: SW to follow closely tomorrow after 1430 Hospice Info Visit to determine family preference for d/c of home with [facility] and pp caregivers vs SNF Comfort for 5 days and then transition to possibly [facility] with [facility]. Maia Ramirez MSW
--- NOTE | 2018-09-27 14:58 | DIET.PN ---
Pt alert today. Says meals are fine and appetite good. Ate 25% breakfast. Dx: fall, weakness, severe dementia Diet: Heart healthy, dysphagia mech, NT liq BMI: 18.7 NFPE: Severe loss noted in clavicles, deltoid. Assessment: Severe chronic pcm r/t inadequate PO intake; dementia affecting intake AEB wasting, very low BMI. Intervention: Encouraged pt to request foods per preference. Pt is now comfort only.
--- NOTE | 2018-09-27 15:30 | PT.IPTN ---
Current Diagnoses Pneumonia, unspecified organism (09/24/18) Physical Therapy Treatment Note M2 PT-IP Current Condition Start: 09/25/18 08:04 Freq: NEEDED Status: Active Protocol: Document 09/25/18 10:30 RS (Rec: 09/25/18 13:57 RS [email or web address]) Physical Therapy Current Condition Current Condition Evaluation Date 09/25/18 Treatment Diagnosis pneumonia, weakness, poor skin integrity Onset Date 09/24/18 M3 PT-IP Subjective Start: 09/25/18 08:04 Freq: NEEDED Status: Active Protocol: Document 09/27/18 09:25 LJ (Rec: 09/27/18 15:30 LJ [email or web address]) Subjective Physical Therapy Visit Type Type Treatment Note Visit Start Time 09:25 Visit Stop Time 09:38 Total Visit Minutes 13 Notes Pt in chair willing to work with PT. Pt with confusion but cooperative. M4 PT-IP Mobility and Gait Start: 09/25/18 08:04 Freq: NEEDED Status: Active Protocol: Document 09/27/18 09:25 LJ (Rec: 09/27/18 15:30 LJ [email or web address]) PT-Transfer Assessment Sit to and From Stand Sit to and from Stand Minimal Assistance 1 Person Assistance Use of Upper Extremities Equipment Transfer Assistive Device Gait Belt Front Wheeled Walker Transfers Transfer Destination Chair Comments Mobility Comments Pt requiring verbal cuing for hand placement and body positioning in performing sit< >stand. CGA with transfers Gait Assessment Comments Gait Comments pt is nonambulatory at baseline, gait not tested M5 PT-IP Objective Assessments Start: 09/25/18 08:04 Freq: NEEDED Status: Active Protocol: Document 09/25/18 10:30 RS (Rec: 09/25/18 13:57 RS [email or web address]) Orientation Orientation/Cognition Level of Alertness Alert Gross Range of Motion Upper Extremity ROM Assessment Within Functional Limits Lower Extremity ROM Assessment Within Functional Limits Strength Comments Strength Comments grossly 3+ to 4/5 M6 PT-IP Treatment Start: 09/25/18 08:04 Freq: NEEDED Status: Active Protocol: Document 09/27/18 09:25 LJ (Rec: 09/27/18 15:30 LJ [email or web address]) Physical Therapy Treatment Exercises Exercises Gluteal Sets Quad Sets Short Arc Quads Education Education Provided Safety M7 PT-IP Assessment and Plan Start: 09/25/18 08:04 Freq: NEEDED Status: Active Protocol: Document 09/27/18 09:25 ANGELO (Rec: 09/27/18 15:30 LJ [email or web address]) PT Summary Assessment and Plan Potential Rehabilitation Potential Fair Status of Condition at Evaluation Evolving Summary Impairments Pain Strength Balance Cognition Bed Mobility Transfers Gait Activity Tolerance Assessment Summary Pt pleasand and cooperative. Performed 3 sit<>stand from chair with cuing for hand and body alignment. Some confusion with exercises which resolved after several repetitions. CGA - ModA for transfers Goals Bed Mobility Goal Contact Guard Assistance Transfer Goal Contact Guard Assistance Days to Meet Goals 4 Frequency of Treatment Frequency Of Treatment Once a Day Treatment Plan Physical Therapy Treatment Plan Bed Mobility Training Transfer Training Therapeutic Exercise Balance Retraining Other Recommendations and Next Treatment bed mobility specifically Focus scooting with better buttock clearance, strength, transfers Recommendations To Nursing Amount of Assist Needed 1 Person Assist Discharge Recommendations PT Discharge Recommendations SNF Rehab
--- NOTE | 2018-09-27 15:49 | PT.IPTN ---
Current Diagnoses Pneumonia, unspecified organism (09/24/18) Physical Therapy Treatment Note M2 PT-IP Current Condition Start: 09/25/18 08:04 Freq: NEEDED Status: Active Protocol: Document 09/25/18 10:30 RS (Rec: 09/25/18 13:57 RS [email or web address]) Physical Therapy Current Condition Current Condition Evaluation Date 09/25/18 Treatment Diagnosis pneumonia, weakness, poor skin integrity Onset Date 09/24/18 M3 PT-IP Subjective Start: 09/25/18 08:04 Freq: NEEDED Status: Active Protocol: Document 09/27/18 15:48 GGD (Rec: 09/27/18 15:49 GGD [id number]) Subjective Physical Therapy Visit Type Type Administrative Note Notes Per MD pt is now comfort care and has no futher skilled PT needs. Will D/C from PT. M4 PT-IP Mobility and Gait Start: 09/25/18 08:04 Discharge Recommendations PT Discharge Recommendations SNF Rehab
--- NOTE | 2018-09-27 17:03 | PM.CHAP ---
Staff referral. Met spouse and [place] daughter. Daughter expressed concerns about whether mom could take care of Pt at home. Plan to visit again before family meets with hospice on Tuesday afternoon.
--- NOTE | 2018-09-27 18:34 | PC.NURSE ---
1515 - Pt requesting to return to bed. 2 person assist with FWW. Pt agreeable to side lying. Position for comfort. Family at bedside. 1700 - Pt set up for meal. Family at bedside to assist. Deny further needs. 1830 - Pt family to leave for the evening. Pt resting quietly. Bed alarm on. Monitor.
[2018-09-27] MEDS: BUSPIRONE 5 MG TABLET 1.25 MG PO (20:05)
[2018-09-27] MEDS: MIRTAZAPINE 15 MG TABLET 7.5 MG PO (20:06)
[2018-09-27] MEDS: LATANOPROST EYE-RIGHT (20:07)
[2018-09-27] MEDS: HALOPERIDOL 1 MG TABLET PO (20:07)
[2018-09-27] MEDS: [UNRECOGNIZED DRUG - OTHER] EYE-RIGHT (20:07)
[2018-09-28] VITALS: BP 128/47; PULSE 72; RESP 18; TEMP 36.5; O2SAT 95
[2018-09-28 00:41] VITALS: O2SAT 95
[2018-09-28] MEDS: CEFTRIAXONE 1 GM/50 ML FROZ.PIGGY IV ×2 (01:48→13:36)
[2018-09-28 07:49] VITALS: BP 153/100; PULSE 76; RESP 15; TEMP 37.1; O2SAT 93
[2018-09-28] MEDS: ATORVASTATIN 20 MG TABLET 80 MG PO (09:25)
[2018-09-28] MEDS: CARVEDILOL 12.5 MG TABLET PO ×2 (09:26→19:25)
[2018-09-28] MEDS: GABAPENTIN 300 MG CAPSULE PO ×3 (09:26→19:26)
[2018-09-28] MEDS: CLOPIDOGREL 75 MG TABLET PO (09:26)
[2018-09-28] MEDS: HEPARIN 5,000 UNIT/ML VIAL 5000 UNIT SUBCUT ×2 (09:27→19:28)
[2018-09-28] MEDS: ISOSORBIDE MONONITRATE ER 30 MG TABLET PO (09:28)
[2018-09-28] MEDS: HYDRALAZINE 25 MG TABLET PO ×2 (09:28→19:27)
[2018-09-28] MEDS: SODIUM CHLORIDE 0.9% FLUSH 10 ML IV ×2 (09:29→19:29)
[2018-09-28] MEDS: ACETAMINOPHEN 325 MG TABLET 650 MG PO (09:29)
[2018-09-28] MEDS: DUREZOL 1 EACH EYE-LEFT ×2 (09:32→19:27)
--- NOTE | 2018-09-28 11:57 | P.PN_ITS ---
Subjective Date Patient Seen: 09/28/18 Interval history: Hilario Lopez is an 83-year-old male patient with history significant for myocardial infarction, atrial fibrillation, CHF with reduced ejection fraction, hypertension, aortic aneurysm status post repair, T&A, central retinal artery occlusion, vascular dementia with behavioral disturbances and right AKA presents to the emergency department for complaints of weakness. Interval history: Patient continues to sundown at night and required Haldol 2 mg IV x1 to control behavior. The patient is sleeping in bed comfortably but easily arousable. He continues to be alert oriented to person only. He does not remember who I am. Patient has advanced dementia and continually have to remind him why he is hospitalized and the decision to place him on hospice and let him eat for comfort due to his severe oropharyngeal dysphagia with significant aspiration. The patient continually reflects on his poor behavior and apologizes frequently. The patie nt is eating for comfort. Plan to place patient on hospice or comfort care with disposition to be determined. Hospice informational visit is scheduled for today. His behavior specifically sundowning seems to be well controlled with Haldol. Patient slept well overnight and was not combative. Exam Vital Signs (past 8 hours): - 09/28/18 07:49 Temperature 98.8 F Pulse Rate 76 Respiratory Rate 15 Blood Pressure 153/100 H Pulse Oximetry 93 Oxygen Delivery Method Room Air Oxygen Flow Rate 0 Narrative Exam Narrative: General: Elderly frail and cachectic appearing gentleman sitting in bedside chair and in no acute distress, advanced vascular dementia with fluctuating mentation. HEENT: Normocephalic, atraumatic. External ears without defect. Pupils unequal L>R, round, and reactive to light. Conjunctival injection of left eye. Anicteric sclerae, moist conjunctivae. Oropharynx free of erythema and cobble stoning with moist mucosa. Neck: Supple with full range of motion. No jugular venous distension. No lymphadenopathy or thyromegaly. Cardiovascular: Irregularly irregular without murmurs, rubs, or gallops appreciated. Pulmonary: Clear to auscultation bilaterally with scattered rhonchi. No crackles or wheezes. Normal respiratory effort with no use of accessory muscles. Abdomen: Soft, non-tender, non-distended. No hepatosplenomegaly or masses appreciated. Extremities: No clubbing, cyanosis, or edema. Right lower extremity ROSEMARY. Upper and lower extremity atrophy and muscle wasting. Skin: Normal temperature, turgor, and texture; no rash, ulcers, or subcutaneous nodules appreciated. Neurological: Cranial nerves grossly intact. Psychiatric: Patient's mentation fluctuates. He at times is very lucid, cooperative, and pleasant. At other times he is confused, hallucinating, and q uite aggressive verbally. Advanced vascular dementia. Objective Labs Result Diagrams: 09/25/18 04:43 09/25/18 04:43 Assessment & Plan Assessment & Plan narrative: Hilario Lopez is an 83-year-old male patient with history significant for myocardial infarction, atrial fibrillation, CHF with reduced ejection fraction, hypertension, aortic aneurysm status post repair, T&A, central retinal artery occlusion, vascular dementia with behavioral disturbances and right AKA presents to the emergency department for complaints of weakness. 1. Comfort care. -Patient has significantly advanced vascular dementia with severe oropharyngeal dysphagia with likely a neurovascular component and chronic aspiration with any and all types of food. -Discussed goals of care in great detail. Patient's family would like to make patient comfort care only at this time. Arranged for hospice informational visit today. Consulted Psychiatry to help with behavioral component of dementia as patient's behavior can be quite combative and verbal. Psychiatry is in agreement with Haldol and titrate as needed to control behavior. -Ordered Haldol 1 mg PO daily at bedtime and will titrate as needed. Also ordered 1 mg IV Haldol every 6 hours as needed for agitation. -Ordered comfort medications including: Morphine 1 mg IV every 6 hours as needed. -Allow patient to eat for comfort only. Defibrillator has been deactivated. 2. Chronic significant oropharyngeal dysphagia, possibly neurovascular, present on admission. Active. -Reports of patient choking and coughing while eating. -Chest x-ray shows right upper lobe pneumonia. -Consulted speech therapy who evaluated patient and reports that patient silent ly aspirates on every texture of food that was trialed. Not safe for patient to swallow. Family would like to lower the patient eat for comfort and are leaning towards full comfort care in regards to medical therapies. 3. Acute aspiration pneumonia, present on admission. Resolved. -Patient presented with fever and increasing weakness with history of chronic dysphagia. -Chest x-ray demonstrated right upper lobe pneumonia. -Initial WBC 16.3 and procalcitonin 0.08. -Respiratory viral PCR negative. -Completed azithromycin 500 mg IV daily for 3 days and ceftriaxone 1 g every 12 hours for total of 5 days to complete course of treatment for pneumonia unless instructed otherwise by family. Any recurrent pneumonia will not treat in the future. 4. Acute on chronic generalized weakness, with severe protein calorie malnutrition and failure to thrive, present on admission. Active. 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 He does not use use prosthesis and is able to self transfer/use wheelchair for mobility. Patient with progressive debility and frequent falls with calls to EMS. -Patient with neuropathy of the right stump. Continue gabapentin 300 mg 3 times daily. Continue comfort meds as above. 5. Chronic glaucoma with recent eye surgery, present on admission. Stable. -Patient has bilateral glaucoma and recent central retinal vein occlusion of left eye with stent placement left eye following acute glaucoma. Appears infected in added erythromycin eyedrops. Continued latanoprost and durezol eyedrops. -Patient has some vision in left eye but is unable to count fingers at 8 inches. -Left eye appears infected in added erythromycin eye drops. Continued home latanoprost and durezol eye drops. 6. Chronic advanced vascular dementia with likely frontal lobe disease and behavioral disturbance, present on admission. Stable. -Patient is unable manage his medications independently and his daughter Yolie who lives in [place] has been assisting with medications. -Patient with behavioral manifestations including agitation, verbal aggression, and refusal to take medications. -Discontinued sertraline 50 mg daily and buspirone 12.5 mg daily. -Continue mirtazapine 7.5 mg at bedtime. -Consulted psychiatry to help with behavioral disturbance especially in the evenings with . Continue haldol titrated to behavior as above. 7. Chronic atrial fibrillation, present on admission. Stable. -Recent echocardiogram 09/24 demonstrated HFrEF of 30-35%, preserved renal function and previous apical septal OH with akinesis without change compared to exam on 07/07/2015. -Continue Coreg 12.5 mg twice daily, hydralazine 25 mg twice daily, isosorbide 30 mg daily and clopidogrel 75 mg daily. 8. Hypertension, chronic, present on admission. Stable. -Continue Coreg 12.5 mg twice daily, hydralazine 25 mg twice daily and isosorbide 30 mg daily. 9. Hyperlipidemia, chronic, present on admission. Stable -Continue atorvastatin 80 mg daily. Disposition: Patient is now comfort care only and likely to discharge in 1-2 days with specific disposition to be determined either long-term facility with comfort care versus hospice at home or skilled private pay. Quality VTE Deep Vein Thrombosis/Pulmonary Embolism Present on Admission: No
--- NOTE | 2018-09-28 13:29 | PC.NURSE ---
Patient without agitation or inappropriate behaviors this shift, no prn's required, pleasantly forgetful and cooperative at this time. Declined lunch. Assisted with repositioning in bed and pressure relief measures. Frazier remains intact Patient transferred to room 207, report given to Cristal Villa RN for continued care. Patient transported in bed with all belongings with TAILER IN and student nurse.
--- NOTE | 2018-09-28 16:41 | PC.NURSE ---
Addendum entered by Ninfa Tolentino R.N. 09/28/18 22:12: HS meds given early as family noted pt becoming more anxious/confused and asking to go home despite attempts to reorient. Pt has been cooperative through shift and agreeable to care. Original Note: evening shift 1630 pt and family met with hospice. after meeting pt is now resting with eyes closed, respirations equal and unlabored. bed alarm on. pt's at bedside in recliner.
[2018-09-28 16:59] VITALS: BP 104/56; PULSE 71; RESP 20; TEMP 36.9; O2SAT 93
[2018-09-28] MEDS: BUSPIRONE 5 MG TABLET 1.25 MG PO (19:25)
[2018-09-28] MEDS: HALOPERIDOL 1 MG TABLET PO (19:26)
[2018-09-28] MEDS: LATANOPROST EYE-RIGHT (19:28)
[2018-09-28] MEDS: MIRTAZAPINE 7.5 MG TABLET PO (19:28)
[2018-09-28] MEDS: [UNRECOGNIZED DRUG - OTHER] EYE-RIGHT (19:28)
[2018-09-28 23:55] VITALS: RESP 16
[2018-09-29] VITALS (7 sets, daily range): BP systolic 105–134; BP diastolic 51–69; PULSE 60–77; RESP 12–18; TEMP 36.6–37.3; O2SAT 92–96
[2018-09-29] MEDS: CARVEDILOL 12.5 MG TABLET PO ×2 (09:14→20:21)
[2018-09-29] MEDS: ATORVASTATIN 20 MG TABLET 80 MG PO (09:14)
[2018-09-29] MEDS: CLOPIDOGREL 75 MG TABLET PO (09:15)
[2018-09-29] MEDS: GABAPENTIN 300 MG CAPSULE PO ×3 (09:16→20:24)
[2018-09-29] MEDS: HEPARIN 5,000 UNIT/ML VIAL 5000 UNIT SUBCUT ×2 (09:16→20:25)
[2018-09-29] MEDS: DUREZOL 1 EACH EYE-LEFT ×2 (09:16→20:24)
[2018-09-29] MEDS: HYDRALAZINE 25 MG TABLET PO (09:16)
[2018-09-29] MEDS: ISOSORBIDE MONONITRATE ER 30 MG TABLET PO (09:17)
[2018-09-29] MEDS: SODIUM CHLORIDE 0.9% FLUSH 10 ML IV ×2 (09:18→20:27)
--- NOTE | 2018-09-29 12:32 | P.PN_ITS ---
Subjective Date Patient Seen: 09/29/18 Time Patient Seen: 12:21 Interval history: Follow-up on aspiration pneumonia, weakness, and comfort care measures. Patient seen at bedside. He is awake and more interactive this morning. Not aggressive or combative. He continues to complain of aspiration and frequent cough. No shortness of breath or chest pain. No acute overnight events. Exam Vital Signs (past 8 hours): - 09/29/18 05:57 09/29/18 09:00 Temperature 97.9 F Pulse Rate 65 Respiratory Rate 18 12 Blood Pressure 134/69 Pulse Oximetry 94 Oxygen Delivery Method Room Air Oxygen Flow Rate 0 Narrative Exam Narrative: General: Elderly frail and cachectic male in no acute distress. AAO x1. HEENT: Normocephalic, atraumatic. PERRLA and EOMI bilaterally. Neck: Supple with full range of motion. No jugular venous distension. No lymphadenopathy or thyromegaly. Cardiovascular: Irregularly irregular without murmurs, rubs, or gallops appreciated. Pulmonary: Clear to auscultation bilaterally with scattered rhonchi. No crackles or wheezes. Normal respiratory effort with no use of accessory muscles. Abdomen: Soft, non-tender, non-distended. No hepatosplenomegaly or masses appreciated. Extremities: No clubbing, cyanosis, or edema. Right lower extremity ROSEMARY. Upper and lower extremity atrophy and muscle wasting. Skin: Normal temperature, turgor, and texture; no rash, ulcers, or subcutaneous nodules appreciated. Neurological: Cranial nerves grossly intact. Psychiatric: Patient's mentation fluctuates. He at times is very lucid, cooperative, and pleasant. At other times he is confused, hallucinating, and quite aggressive verbally. Advanced vascular dementia. Objective Labs Result Diagrams: 09/25/18 04:43 09/25/18 04:43 Assessment & Plan Assessment & Plan narrative: 83yo M with PMH of myocardial infarction, atrial fibrillation, CHF with reduced ejection fraction, hypertension, aortic aneurysm status post repair, T&A, central retinal artery occlusion, vascular dementia with behavioral disturbances and right AKA presented to ED with weakness. He was found to have Aspiration pneumonia with severe aspiration due to advanced dementia. Currently comfort care measures with pleasure feeds. Pending disposition with hospice. 1. Comfort care. -Patient has significantly advanced vascular dementia with severe oropharyngeal dysphagia with likely a neurovascular component and chronic aspiration with any and all types of food. -Discussed goals of care in great detail. Patient's family would like to make patient comfort care only at this time. Arranged for hospice informational visit today. Consulted Psychiatry to help with behavioral component of dementia as patient's behavior can be quite combative and verbal. Psychiatry is in agreement with Haldol and titrate as needed to control behavior. -continue Haldol 1 mg PO daily at bedtime and titrate as needed. Continue 1 mg IV Haldol every 6 hours as needed for agitation. -Ordered comfort medications including: Morphine 1 mg IV every 6 hours as needed. Continue pleasure feeds -Defibrillator has been deactivated. 2. Chronic significant oropharyngeal dysphagia, possibly neurovascular, present on admission. Active. -Reports of patient choking and coughing while eating. -Chest x-ray shows right upper lobe pneumonia. -continue pleasure feeds, as patient will be hospice on discharge 3. Acute aspiration pneumonia, present on admission. Resolved. -Completed azithromycin 500 mg IV daily for 3 days and ceftriaxone 1 g every 12 hours for total of 5 days to complete course of treatment for pneumonia unless instructed otherwise by family. Any recurrent pneumonia will not treat in the future. 4. Acute on chronic generalized weakness, with severe protein calorie malnutrition and failure to thrive, present on admission. Active. 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 He does not use use prosthesis and is able to self transfer/use wheelchair for mobility. Patient with progressive debility and frequent falls with calls to EMS. -Patient with neuropathy of the right stump. Continue gabapentin 300 mg 3 times daily. Continue comfort meds as above. 5. Chronic glaucoma with recent eye surgery, present on admission. Stable. -Patient has bilateral glaucoma and recent central retinal vein occlusion of left eye with stent placement left eye following acute glaucoma. -Patient has some vision in left eye but is unable to count fingers at 8 inches. -Continue erythromycin eye drops (L eye infected). Continue home latanoprost and durezol eye drops. 6. Chronic advanced vascular dementia with likely frontal lobe disease and behavioral disturbance, present on admission. Stable. -Patient is unable manage his medications independently and his daughter Yolie who lives in [place] has been assisting with medications. -Patient with behavioral manifestations including agitation, verbal aggression, and refusal to take medications. -Continue mirtazapine 7.5 mg at bedtime As well as haldol and Buspirone at bedtime. Continue Haldol PRN 7. Chronic atrial fibrillation, present on admission. Stable. -Recent echocardiogram 09/24 demonstrated HFrEF of 30-35%, preserved renal function and previous apical septal ND with akinesis without change compared to exam on 07/07/2015. -Continue Coreg 12.5 mg twice daily, hydralazine 25 mg twice daily, isosorbide 30 mg daily and clopidogrel 75 mg daily. 8. Hypertension, chronic, present on admission. Stable. -Continue Coreg 12.5 mg twice daily, hydralazine 25 mg twice daily and isosorbide 30 mg daily. 9. Hyperlipidemia, chronic, present on admission. Stable -Continue atorvastatin 80 mg daily. Disposition: Patient is now comfort care only and likely to discharge in 1-2 days with specific disposition to be determined, either residential facility with comfort care versus hospice at home or skilled private pay. Quality VTE Deep Vein Thrombosis/Pulmonary Embolism Present on Admission: No
--- NOTE | 2018-09-29 15:34 | CM.DPNOTE ---
According to Dr Sellers, pt ready for DC when safe DCP in place to meet pt's comfort care needs. Family agreeable to Hospice upon DC. According to report from Joleen at [facility]; they could send a nurse to pt's home for open this Tuesday. Met w/pt's spouse Alecia and dtr Isadora, had lengthy conversation. Options reviewed: -Can pt return home ? Pt/family can afford / in home care giving but there is still resistance from spouse/dtr re: taking pt home if he becomes aggressive and abusive again -Can pt DC to [facility] ([facility]) on Hospice? Not until October 09, this is when a bed is available in their dementia unit. Contact: Latisha Polanco# [phone] -Can pt DC to [facility] or [facility]? No, there is no room available -Can pt DC to a facility outside of [place]? No, spouse can not drive and is not agreeable to out of town placement -Can pt either DC home for a few days w/cgs vs [facility] while bed at [facility] is secured? Home-unlikely FCC: According to Lana at [facility], the payer is not a barrier (Medicare vs private pay w/ Hospice, [facility]) it's pt's h/o behavioral disturbance that is a barrier to admission at this time. Lana at [facility] will continue to review clinical in case pt's mood and sundowning behaviors seem to stabilize over the next few days. Updated Joleen w/ [facility]; no DCP at this time, Tuesday slot for Hospice is not realistic because spouse very apprehensive about pt returning home and no [facility]Dementia Unit available this week in town. This [facility] [employer] will plan to keep Lexis Vazquez updated as needed over the w/e. WALTER Pham
--- NOTE | 2018-09-29 15:35 | PC.NURSE ---
Oriented to self only; denies pain; positioned on waffle cushion for stage 1 coccyx; BM X2 large; tolerating diet; swallows pills whole in carrier; calm and cooperative throughout shift; urine leaking around braun; bed alarm active; daughter and in room
[2018-09-29] MEDS: BUSPIRONE 5 MG TABLET 1.25 MG PO (20:21)
[2018-09-29] MEDS: HALOPERIDOL 1 MG TABLET PO (20:21)
[2018-09-29] MEDS: MIRTAZAPINE 7.5 MG TABLET PO (20:25)
[2018-09-29] MEDS: LATANOPROST EYE-RIGHT (20:26)
[2018-09-29] MEDS: [UNRECOGNIZED DRUG - OTHER] EYE-RIGHT (20:26)
--- NOTE | 2018-09-29 22:51 | PC.NURSE ---
pt A&OX1. 97%RA. denied pain. no n/v. braun intact. poor PO intake. low urine output 150cc. encouraged pt to drink more water. urine is clear ru. hydralazine not given per HAYDEE Valdez due to low BP.
--- NOTE | 2018-09-30 04:51 | PC.NURSE ---
Hospitalist notified of large loose BM at 0450 and that evening shift reported loose BMs during their shift as well. Order for Imodium given and being put in by hospitalist.
[2018-09-30] MEDS: LOPERAMIDE 2 MG CAPSULE PO (06:54)
[2018-09-30 08:00] VITALS: BP 155/71; PULSE 60; RESP 20; TEMP 37.3; O2SAT 93
[2018-09-30] MEDS: ATORVASTATIN 20 MG TABLET 80 MG PO (10:06)
[2018-09-30] MEDS: CARVEDILOL 12.5 MG TABLET PO ×2 (10:07→20:09)
[2018-09-30] MEDS: DUREZOL 1 EACH EYE-LEFT ×2 (10:07→20:17)
[2018-09-30] MEDS: CLOPIDOGREL 75 MG TABLET PO (10:07)
[2018-09-30] MEDS: GABAPENTIN 300 MG CAPSULE PO ×2 (10:08→20:08)
[2018-09-30] MEDS: ISOSORBIDE MONONITRATE ER 30 MG TABLET PO (10:08)
[2018-09-30] MEDS: HYDRALAZINE 25 MG TABLET PO ×2 (10:08→20:08)
[2018-09-30] MEDS: HEPARIN 5,000 UNIT/ML VIAL 5000 UNIT SUBCUT ×2 (10:09→20:09)
[2018-09-30] MEDS: SODIUM CHLORIDE 0.9% FLUSH 10 ML IV (10:09)
--- NOTE | 2018-09-30 12:53 | PM.PN.1 ---
Subjective Date Patient Seen: 09/30/18 Time Patient Seen: 12:53 Interval history: Follow-up on aspiration pneumonia, weakness, and comfort care measures. Patient seen at bedside. He is more calm and alert this morning. No acute overnight events. Not aggressive or combative this morning. Patient continues to aspirate with frequent cough. No shortness of breath or chest pain. Exam Vital Signs (past 8 hours): - 09/30/18 08:00 Temperature 99.1 F Pulse Rate 60 Respiratory Rate 20 Blood Pressure 155/71 H Pulse Oximetry 93 Oxygen Delivery Method Room Air Oxygen Flow Rate 0 Narrative Exam Narrative: General: Elderly frail and cachectic male in no acute distress. AAO x1. HEENT: Normocephalic, atraumatic. PERRLA and EOMI bilaterally. Neck: Supple with full range of motion. No jugular venous distension. No lymphadenopathy or thyromegaly. Cardiovascular: Irregularly irregular without murmurs, rubs, or gallops appreciated. Pulmonary: Clear to auscultation bilaterally with scattered rhonchi. No crackles or wheezes. Normal respiratory effort with no use of accessory muscles. Abdomen: Soft, non-tender, non-distended. No hepatosplenomegaly or masses appreciated. Extremities: No clubbing, cyanosis, or edema. Right lower extremity ROSEMARY. Upper and lower extremity atrophy and muscle wasting. Skin: Normal temperature, turgor, and texture; no rash, ulcers, or subcutaneous nodules appreciated. Neurological: Cranial nerves grossly intact. Psychiatric: Patient's mentation fluctuates. He at times is very lucid, cooperative, and pleasant. At other times he is confused, hallucinating, and quite aggressive verbally. Advanced vascular dementia. Objective Labs Result Diagrams: 09/25/18 04:43 09/25/18 04:43 Assessment & Plan Assessment & Plan narrative: 83yo M with PMH of myocardial infarction, atrial fibrillation, CHF with reduced ejection fraction, hypertension, aortic aneurysm status post repair, T&A, central retinal artery occlusion, vascular dementia with behavioral disturbances and right AKA presented to ED with weakness. He was found to have Aspiration pneumonia with severe aspiration due to advanced dementia. Currently comfort care measures with pleasure feeds. Pending disposition with hospice. 1. Comfort care. -Patient has significantly advanced vascular dementia with severe oropharyngeal dysphagia with likely a neurovascular component and chronic aspiration with any and all types of food. -Discussed goals of care in great detail. Patient's family would like to make patient comfort care only at this time. Consulted Psychiatry to help with behavioral component of dementia as patient's behavior can be quite combative and verbal. Psychiatry is in agreement with Haldol and titrate as needed to control behavior. Hospice arrangements are being processed. -continue Haldol 1 mg PO daily at bedtime and titrate as needed. Continue 1 mg IV Haldol every 6 hours as needed for agitation. -Ordered comfort medications including: Morphine 1 mg IV every 6 hours as needed. Continue pleasure feeds -Defibrillator has been deactivated. 2. Chronic significant oropharyngeal dysphagia, possibly neurovascular, present on admission. Active. -Reports of patient choking and coughing while eating. -Chest x-ray shows right upper lobe pneumonia. -continue pleasure feeds, as patient will be hospice on discharge 3. Acute aspiration pneumonia, present on admission. Resolved. -Completed azithromycin 500 mg IV daily for 3 days and ceftriaxone 1 g every 12 hours for total of 5 days. Any recurrent pneumonia will not be treated in the future. 4. Acute on chronic generalized weakness, with severe protein calorie malnutrition and failure to thrive, present on admission. Active. 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 He does not use use prosthesis and is able to self transfer/use wheelchair for mobility. Patient with progressive debility and frequent falls with calls to EMS. -Patient with neuropathy of the right stump. Continue gabapentin 300 mg 3 times daily. Continue comfort meds as above. 5. Chronic glaucoma with recent eye surgery, present on admission. Stable. -Patient has bilateral glaucoma and recent central retinal vein occlusion of left eye with stent placement left eye following acute glaucoma. -Patient has some vision in left eye but is unable to count fingers at 8 inches. -Continue erythromycin eye drops (L eye infected). Continue home latanoprost and durezol eye drops. 6. Chronic advanced vascular dementia with likely frontal lobe disease and behavioral disturbance, present on admission. Stable. -Patient is unable manage his medications independently and his daughter Yolie who lives in [place] has been assisting with medications. -Patient with behavioral manifestations including agitation, verbal aggression, and refusal to take medications. -Continue mirtazapine 7.5 mg at bedtime As well as haldol and Buspirone at bedtime. Continue Haldol PRN 7. Chronic atrial fibrillation, present on admission. Stable. -Recent echocardiogram 09/24 demonstrated HFrEF of 30-35%, preserved renal function and previous apical septal AK with akinesis without change compared to exam on 07/07/2015. -Continue Coreg 12.5 mg twice daily, hydralazine 25 mg twice daily, isosorbide 30 mg daily and clopidogrel 75 mg daily. 8. Hypertension, chronic, present on admission. Stable. -Continue Coreg 12.5 mg twice daily, hydralazine 25 mg twice daily and isosorbide 30 mg daily. 9. Hyperlipidemia, chronic, present on admission. Stable -Continue atorvastatin 80 mg daily. Disposition: Patient is now comfort care only and likely to discharge in 1-2 days with specific disposition to be determined, either long term facility with comfort care versus hospice at home or skilled private pay. Quality VTE Deep Vein Thrombosis/Pulmonary Embolism Present on Admission: No
--- NOTE | 2018-09-30 15:18 | PC.NURSE ---
Shift summary: Oriented to self and family. Calm and cooperative throughout the shift. Occasionally impulsive, but redirects easily. Sat up in the chair for lunch, then back to bed. No stools this shift. Frazier to gravity, better UOP than overnight. Not much appetite, encouraged PO fluids. Denies shortness of breath. VSS, room air. Q2H reposition in bed, although he does make some movements on his own. Waffle cushion used intermittently. in visiting now. Encouraged to make needs known. Light in reach, bed alarm active.
--- NOTE | 2018-09-30 15:28 | CM.DPNOTE ---
DCP Coordination Cont: Had lengthy conversation w/dtr Isadora this morning to again review DCP options. Isadora explains she has talked w/administrators at [facility] and [facility] and she is hopeful they can admit pt early next week. Spoke to Danielle at [facility] today after she completed bedside assessment w/pt. Provided clinical docs to include med list, RN notes and medical prog notes for the last two days . Danielle explained [facility] will have room for pt Tuesday10.03.18, he can then transfer to [facility] when bed available October 09. Pt can continue his dose of Haldol although po only, not IM/IV. This TANK WAGON OPERATOR updated dtr Isadora and spouse Jacques, both agreeable to this plan. TC placed to [facility], spoke to Lexis; she is unable to discuss Hospice schedule over the weekend but Joleen will return Tuesday and have a better idea when Hospice service can open at [facility] for pt. Updated Danielle with this information. P: DC has been arranged for Tuesday to [facility] via w/c van. Need to keep family updated w/any changes. No IV Haldol available at [facility]. Plan to contact [facility] on Tuesday to review admission schedule. WALTER Pham
[2018-09-30 15:30] VITALS: BP 119/53; PULSE 72; RESP 18; TEMP 36.3; O2SAT 93
[2018-09-30] MEDS: ACETAMINOPHEN 325 MG TABLET 650 MG PO (18:36)
[2018-09-30 20:00] VITALS: BP 150/76; PULSE 74; RESP 18; TEMP 37.6; O2SAT 95
[2018-09-30] MEDS: BUSPIRONE 5 MG TABLET 1.25 MG PO (20:06)
[2018-09-30 20:08] VITALS: BP 130/91; PULSE 70
[2018-09-30] MEDS: MIRTAZAPINE 7.5 MG TABLET PO (20:08)
[2018-09-30] MEDS: HALOPERIDOL 1 MG TABLET PO (20:09)
[2018-09-30] MEDS: [UNRECOGNIZED DRUG - OTHER] EYE-RIGHT (20:17)
[2018-09-30] MEDS: LATANOPROST EYE-RIGHT (20:17)
[2018-10-01 05:46] VITALS: BP 123/69; PULSE 94; RESP 18; TEMP 36.5; O2SAT 96
[2018-10-01 08:00] VITALS: BP 149/75; PULSE 96; RESP 18; TEMP 37.3; O2SAT 96
[2018-10-01] MEDS: ACETAMINOPHEN 325 MG TABLET 650 MG PO ×2 (08:11→21:22)
[2018-10-01] MEDS: CLOPIDOGREL 75 MG TABLET PO (08:47)
[2018-10-01] MEDS: GABAPENTIN 300 MG CAPSULE PO ×2 (08:47→21:20)
[2018-10-01] MEDS: ATORVASTATIN 20 MG TABLET 80 MG PO (08:47)
[2018-10-01] MEDS: CARVEDILOL 12.5 MG TABLET PO ×2 (08:48→21:20)
[2018-10-01] MEDS: HYDRALAZINE 25 MG TABLET PO ×2 (08:48→21:21)
[2018-10-01] MEDS: ISOSORBIDE MONONITRATE ER 30 MG TABLET PO (08:48)
[2018-10-01] MEDS: HEPARIN 5,000 UNIT/ML VIAL 5000 UNIT SUBCUT ×2 (08:48→21:21)
[2018-10-01] MEDS: DUREZOL 1 EACH EYE-LEFT ×2 (08:50→21:21)
--- NOTE | 2018-10-01 11:49 | PC.NURSE ---
Devin has been cooperative and pleasant so far. He has been up to the chair and back in bed again with frequent repositioning to off-load his decub. Coccyx decub stage 1, bright red, blanches, a curyung surrounding bony prominence at coccyx roughly 5 cm in size. Duoderm placed at site and dated. Devin states his Butt hurts salas I have no meat on it. Also All my joints hurt in reference to pain questioning. Medicated with plain Tylenol with some relief. Awaiting placement per notes.
--- NOTE | 2018-10-01 13:22 | PM.PN.1 ---
Subjective Date Patient Seen: 10/01/18 Interval history: Patient seen and examined, chart reviewed. The patient is an 83-year-old male with a history of vascular dementia. He is waiting placement and a [facility] facility. The patient reports pain over the buttocks. He states that it hurts for him to sit. Exam Vital Signs (past 8 hours): - 10/01/18 05:46 10/01/18 08:00 Temperature 97.7 F 99.1 F Pulse Rate 94 H 96 H Respiratory Rate 18 18 Blood Pressure 123/69 149/75 H Pulse Oximetry 96 96 Oxygen Delivery Method Room Air Oxygen Flow Rate 0 Narrative Exam Narrative: Pleasant elderly male Lungs: Clear to auscultation Cardiac exam: Regular rate and rhythm normal S1-S2 with a 2/6 systolic ejection murmur Abdomen: Soft and nontender Buttocks: Erythematous area with early breakdown over the sacral. The area is inflamed red and tender Lower extremity no edema Objective Labs Result Diagrams: 09/25/18 04:43 09/25/18 04:43 Assessment & Plan Assessment & Plan narrative: Comfort care. -Patient has significantly advanced vascular dementia with severe oropharyngeal dysphagia with likely a neurovascular component and chronic aspiration with any and all types of food. -Discussed goals of care in great detail. Patient's family would like to make patient comfort care only at this time. Consulted Psychiatry to help with behavioral component of dementia as patient's behavior can be quite combative and verbal. Psychiatry is in agreement with Haldol and titrate as needed to control behavior. Hospice arrangements are being processed. -continue Haldol 1 mg PO daily at bedtime and titrate as needed. Continue 1 mg IV Haldol every 6 hours as needed for agitation. -Ordered comfort medications including: Morphine 1 mg IV every 6 hours as needed. Continue pleasure feeds -Defibrillator has been deactivated. 2. Chronic significant oropharyngeal dysphagia, possibly neurovascular, present on admission. Active. -Reports of patient choking and coughing while eating. -Chest x-ray shows right upper lobe pneumonia. -continue pleasure feeds, as patient will be hospice on discharge 3. Acute aspiration pneumonia, present on admission. Resolved. -Completed azithromycin 500 mg IV daily for 3 days and ceftriaxone 1 g every 12 hours for total of 5 days. Any recurrent pneumonia will not be treated in the future. 4. Acute on chronic generalized weakness, with severe protein calorie malnutrition and failure to thrive, present on admission. Active. 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 He does not use use prosthesis and is able to self transfer/use wheelchair for mobility. Patient with progressive debility and frequent falls with calls to EMS. -Patient with neuropathy of the right stump. Continue gabapentin 300 mg 3 times daily. Continue comfort meds as above. 5. Chronic glaucoma with recent eye surgery, present on admission. Stable. -Patient has bilateral glaucoma and recent central retinal vein occlusion of left eye with stent placement left eye following acute glaucoma. -Patient has some vision in left eye but is unable to count fingers at 8 inches. -Continue erythromycin eye drops (L eye infected). Continue home latanoprost and durezol eye drops. 6. Chronic advanced vascular dementia with likely frontal lobe disease and behavioral disturbance, present on admission. Stable. -Patient is unable manage his medications independently and his daughter Yolie who lives in [place] has been assisting with medications. -Patient with behavioral manifestations including agitation, verbal aggression, and refusal to take medications. -Continue mirtazapine 7.5 mg at bedtime As well as haldol and Buspirone at bedtime. Continue Haldol PRN 7. Chronic atrial fibrillation, present on admission. Stable. -Recent echocardiogram 09/24 demonstrated HFrEF of 30-35%, preserved renal function and previous apical septal [place] with akinesis without change compared to exam on 07/07/2015. -Continue Coreg 12.5 mg twice daily, hydralazine 25 mg twice daily, isosorbide 30 mg daily and clopidogrel 75 mg daily. 8. Hypertension, chronic, present on admission. Stable. -Continue Coreg 12.5 mg twice daily, hydralazine 25 mg twice daily and isosorbide 30 mg daily. 9. Hyperlipidemia, chronic, present on admission. Stable -Continue atorvastatin 80 mg daily. 10. Sacral decubitus ulcer, stage I. It patient to start on barrier cream. Disposition: Patient is now comfort care only and likely to discharge in 1-2 days with specific disposition to be determined, either [facility] facility with comfort care versus hospice at home or skilled private pay. Quality VTE Deep Vein Thrombosis/Pulmonary Embolism Present on Admission: No
[2018-10-01 15:25] VITALS: BP 127/56; PULSE 60; RESP 18; TEMP 36.7; O2SAT 96
--- NOTE | 2018-10-01 16:31 | PM.CHAP ---
Short electrical maintenance supervisor visit. Pt is more alert and able to participate in our conversation. Pt. and spouse expressed desire to go home but both recognized that spouse is unable to provide care. Spouse is not clear on what hospice care at home will require of her. Monty Rodriguez [phone]
[2018-10-01] MEDS: BUSPIRONE 5 MG TABLET 1.25 MG PO (21:20)
[2018-10-01] MEDS: MIRTAZAPINE 7.5 MG TABLET PO (21:20)
[2018-10-01] MEDS: LATANOPROST EYE-RIGHT (21:21)
[2018-10-01] MEDS: HALOPERIDOL 1 MG TABLET PO (21:21)
[2018-10-01] MEDS: [UNRECOGNIZED DRUG - OTHER] EYE-RIGHT (21:21)
[2018-10-02 00:14] VITALS: BP 120/57; PULSE 58; RESP 15; TEMP 36.4; O2SAT 94
--- NOTE | 2018-10-02 01:38 | PC.NURSE ---
Roving Weight Gauger Note: 0035: Resting in bed; vital signs stable. Pt has no IV access. Pt drowsy, sleeping intermittently.
[2018-10-02 03:21] VITALS: BP 125/70; PULSE 63
[2018-10-02] MEDS: DUREZOL 1 EACH EYE-LEFT ×2 (08:44→21:37)
[2018-10-02] MEDS: HYDRALAZINE 25 MG TABLET PO ×2 (08:48→21:36)
[2018-10-02] MEDS: GABAPENTIN 300 MG CAPSULE PO ×3 (08:48→21:37)
[2018-10-02] MEDS: ISOSORBIDE MONONITRATE ER 30 MG TABLET PO (08:48)
[2018-10-02] MEDS: CLOPIDOGREL 75 MG TABLET PO (08:48)
[2018-10-02] MEDS: ATORVASTATIN 20 MG TABLET 80 MG PO (08:48)
[2018-10-02] MEDS: CARVEDILOL 12.5 MG TABLET PO ×2 (08:48→21:33)
[2018-10-02] MEDS: HEPARIN 5,000 UNIT/ML VIAL 5000 UNIT SUBCUT (08:49)
[2018-10-02] MEDS: ACETAMINOPHEN 325 MG TABLET 650 MG PO ×2 (08:52→16:34)
--- NOTE | 2018-10-02 08:54 | P.PN_ITS ---
Subjective Date Patient Seen: 10/02/18 Interval history: The the patient reports his bottom is feeling better today since application of barrier cream. He has no shortness of breath or chest pain or any additional complaints. He is awaiting placement. Exam Vital Signs (past 8 hours): - 10/02/18 03:21 Pulse Rate 63 Blood Pressure 125/70 Oxygen Delivery Method Room Air Oxygen Flow Rate 0 Narrative Exam Narrative: Elderly gentleman resting comfortably Lungs: Clear to auscultation Cardiac exam: Regular rate and rhythm normal S1-S2 with a 2/6 systolic ejection murmur Abdomen: Soft nontender nondistended Extremities: No edema Objective Labs Result Diagrams: 09/25/18 04:43 09/25/18 04:43 Assessment & Plan Assessment & Plan narrative: Assessment & Plan narrative: Comfort care. -Patient has significantly advanced vascular dementia with severe oropharyngeal dysphagia with likely a neurovascular component and chronic aspiration with any and all types of food. -Discussed goals of care in great detail. Patient's family would like to make patient comfort care only at this time. Consulted Psychiatry to help with behavioral component of dementia as patient's behavior can be quite combative and verbal. Psychiatry is in agreement with Haldol and titrate as needed to control behavior. Hospice arrangements are being processed. -continue Haldol 1 mg PO daily at bedtime and titrate as needed. Continue 1 mg IV Haldol every 6 hours as needed for agitation. -Ordered comfort medications including: Morphine 1 mg IV every 6 hours as needed. Continue pleasure feeds -Defibrillator has been deactivated. 2. Chronic significant oropharyngeal dysphagia, possibly neurovascular, present on admission. Active. -Reports of patient choking and coughing while eating. -Chest x-ray shows right upper lobe pneumonia. -continue pleasure feeds, as patient will be hospice on discharge 3. Acute aspiration pneumonia, present on admission. Resolved. -Completed azithromycin 500 mg IV daily for 3 days and ceftriaxone 1 g every 12 hours for total of 5 days. Any recurrent pneumonia will not be treated in the future. 4. Acute on chronic generalized weakness, with severe protein calorie malnutrition and failure to thrive, present on admission. Active. 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 He does not use use prosthesis and is able to self transfer/use wheelchair for mobility. Patient with progressive debility and frequent falls with calls to EMS. -Patient with neuropathy of the right stump. Continue gabapentin 300 mg 3 times daily. Continue comfort meds as above. 5. Chronic glaucoma with recent eye surgery, present on admission. Stable. -Patient has bilateral glaucoma and recent central retinal vein occlusion of left eye with stent placement left eye following acute glaucoma. -Patient has some vision in left eye but is unable to count fingers at 8 inches. -Continue erythromycin eye drops (L eye infected). Continue home latanoprost and durezol eye drops. 6. Chronic advanced vascular dementia with likely frontal lobe disease and behavioral disturbance, present on admission. Stable. -Patient is unable manage his medications independently and his daughter Yolie who lives in [place] has been assisting with medications. -Patient with behavioral manifestations including agitation, verbal aggression, and refusal to take medications. -Continue mirtazapine 7.5 mg at bedtime As well as haldol and Buspirone at bedtime. Continue Haldol PRN 7. Chronic atrial fibrillation, present on admission. Stable. -Recent echocardiogram 09/24 demonstrated HFrEF of 30-35%, preserved renal function and previous apical septal [place] with akinesis without change compared to exam on 07/07/2015. -Continue Coreg 12.5 mg twice daily, hydralazine 25 mg twice daily, isosorbide 30 mg daily and clopidogrel 75 mg daily. 8. Hypertension, chronic, present on admission. Stable. -Continue Coreg 12.5 mg twice daily, hydralazine 25 mg twice daily and isosorbide 30 mg daily. 9. Hyperlipidemia, chronic, present on admission. Stable -Continue atorvastatin 80 mg daily. 10. Sacral decubitus ulcer, stage I. It patient to start on barrier cream. Still awaiting placement. Anticipate the patient will be discharged to [address] on Tuesday, tomorrow. Disposition: Patient is now comfort care only and likely to discharge in 1-2 days with specific disposition to be determined, either residential facility with comfort care versus hospice at home or skilled private pay. Quality VTE Deep Vein Thrombosis/Pulmonary Embolism Present on Admission: No
[2018-10-02 09:00] VITALS: BP 131/50; PULSE 57; RESP 16; TEMP 36.8; O2SAT 95
--- NOTE | 2018-10-02 15:22 | CM.DPC ---
DCP/continued: Reviewed chart. Current plan is for patient to discharge to [facility] tomorrow 10-03 with/on comfort care and hospice. Once bed available at [facility] the plan will be to move patient there. It is anticipated that there will be bed the first week of October. AIR CARRIER OPERATIONS INSPECTOR met with patient and spouse at bedside. Patient very alert at time of visit. Patient answering questions appropriately and reports that he would like to go home. Spouse reports that bringing patient home is definitely a consideration? Notified spouse that she will definitely need private pay caregivers if she were considering taking patient home. Spouse in agreement. Spouse agreeable for patient to transfer to [facility] with comfort care tomorrow 10-03-18. After that she would like to consider home with hospice and private pay caregivers. P: [facility] tomorrow under comfort care. Hospice to be called in AM with disposition. Spouse considering home after short stay at [facility]. Will need input from additional family members, hospice, and / caregiver support. WALTER Stout
[2018-10-02 16:35] VITALS: BP 129/62; PULSE 63; RESP 16; TEMP 37.2; O2SAT 94
[2018-10-02] MEDS: BUSPIRONE 5 MG TABLET 1.25 MG PO (21:32)
[2018-10-02 21:33] VITALS: BP 134/52; PULSE 73
[2018-10-02 21:36] VITALS: BP 134/52; PULSE 73
[2018-10-02] MEDS: MIRTAZAPINE 7.5 MG TABLET PO (21:36)
[2018-10-02] MEDS: HALOPERIDOL 1 MG TABLET PO (21:36)
[2018-10-02] MEDS: LATANOPROST EYE-RIGHT (21:38)
[2018-10-02] MEDS: [UNRECOGNIZED DRUG - OTHER] EYE-RIGHT (21:38)
[2018-10-03 00:30] VITALS: BP 142/73; PULSE 69; RESP 20; TEMP 36.5; O2SAT 95
[2018-10-03 07:15] VITALS: BP 139/61; PULSE 59; RESP 16; TEMP 36.7; O2SAT 94
[2018-10-03] MEDS: HYDRALAZINE 25 MG TABLET PO (09:15)
[2018-10-03] MEDS: GABAPENTIN 300 MG CAPSULE PO (09:16)
[2018-10-03] MEDS: ISOSORBIDE MONONITRATE ER 30 MG TABLET PO (09:16)
[2018-10-03] MEDS: DUREZOL 1 EACH EYE-LEFT (09:18)
[2018-10-03 09:25] VITALS: PULSE 70
[2018-10-03] MEDS: CARVEDILOL 12.5 MG TABLET PO (09:25)
--- NOTE | 2018-10-03 10:02 | PM.DS.1 ---
History of Present Illness Date Patient Seen: 10/03/18 Chief complaint: Fell, weakness/confusion Narrative: Mr. Hilario Lopez is an 83-year-old male patient with history significant for myocardial infarction, atrial fibrillation, CHF with reduced ejection fraction, hypertension, aortic aneurysm status post repair, T&A, central retinal artery occlusion, vascular dementia with behavioral disturbances and right AKA presents to the emergency department for complaints of weakness. The patient had slid off chair sustaining no trauma and was unable to get. The patient has had increasing frequency of falls with an increase in need for assistance to get up including response by emergency services. The patient is an unreliable historian with varying levels of confusion believing he is in his home at the time of examination. Other elements of remote history he is able to accurately recall which is verified by his daughter Isadora who arrives during the exam. She describes his level of mentation is slightly better than average. She does note that he will become abusive and belligerent and refused to take his medications. Patient's daughter sets up his medications at home where he lives his . The patient states he has had no recent complaints of illness and has undergone left eye surgery for persistent elevated intra-ocular pressure with placement of a stent 3 weeks ago. He is on multiple eyedrops which are yet to be clarified. The patient otherwise denies any complaints of recent illness, fevers or chills. The patient is 3 weeks postop surgery on left eye for central retinal vein occlusion and acute glaucoma with loss of vision, history a color blindness. He has had no nasal congestion or sore throat and denies shortness of breath or cough. His daughter Yolie endorses the patient coughs with eating. He denies chest pain or palpitations though has a history [place] and atrial fibrillation. He denies abdominal pain, nausea vomiting, diarrhea or constipation. Denies difficulty urinating, denies difficulty starting a stream or dribbling and reports occasional nocturia in the crane manager hours. Upon arrival to the ER the patient is found to be febrile at 11.4 with heart rate of 90 and blood pressure 132/63 with respiratory rate of 23 saturating at 96% on room air. On chest x-ray and x-ray the patient is found to have right upper lobe pneumonia and cardiac echo completed 4 days ago shows an EF of 30-45% with akinesis consistent with prior apical and septal infarct. If further notes that there is no change compared with study done on 07/07/2015. Respiratory panel was completed which is found to be negative. A Frazier catheter is placed due to urinary retention with urine now red in color and per patient and family no prior hematuria. UA shows 1+ protein, 3+ blood, trace leukocyte esterase, with no WBCs or nitrites and occasional bacteria. The patient is admitted for ongoing evaluation and treatment for pneumonia. Discharge Providers Date of admission: 09/24/18 15:53 Discharge Date: 10/03/18 Consults: 09/24/18 16:56 Consult to Dietitian, Adult Routine Comment: Reason For Exam: assessed at high risk. Consult to Pastoral Services Routine Comment: Pt request. 09/24/18 17:42 Consult to Speech Therapy Evaluate & Treat Comment: Physician Instructions: Evaluate and treat 09/24/18 21:25 Consult to Discharge Planning Routine Comment: Failure to live at home, needs placement Consult to Occupational Therapy Evaluate & Treat Comment: Right AKA, debilitated, frequent falls Physician Instructions: Evaluate and treat 09/24/18 21:26 Consult to Physical Therapy Evaluate & Treat Comment: Right AKA, debilitated, frequent falls Physician Instructions: Evaluate and Treat Consult to Power Equipment Mechanics Instructor Routine Comment: Clarification of POLST w/ family, has living will 09/24/18 21:27 Consult to Speech Therapy Evaluate & Treat Comment: impaired swallowing, swallow eval. Physician Instructions: Evaluate and treat 09/25/18 07:42 Consult to Power Equipment Mechanics Instructor Routine Comment: Placement [facility]dc memory care 09/26/18 08:05 Consult to Physician Routine Comment: Consulting Provider: John Nuñez Reason for consultation: Advanced dementia with behavioral disturbance Has provider been notified: Yes Discharge provider: Nasrin Yepez MD Summary Discharge Diagnosis: Aspiration pneumonia resolved Sacral decubitus ulcer, stage II Vascular dementia, chronic with behavioral disturbance Hyperlipidemia Hematuria, resolved Chronic atrial fibrillation Chronic systolic heart failure, with reduced ejection Hypertension Hospital Course: The patient is an 83-year-old male who was admitted to the hospital with weakness and behavioral disturbances. During his hospitalization he was found to be aspirating. Because of his difficulty with output and hostile behavior a discussion ensued with the family. Psychiatric consultation was obtained. Patient's medications were just in his behavior improved. Following evaluation in which she was found to be continuously aspirating family conference was held and the family elected comfort measures only. Hospice was consulted and will follow with the patient as an outpatient. Since that time he has had no further outbursts. He has no witnessed aspiration. He did have an indwelling Frazier cath given development of a sacral decubitus. The patient has been improved. He is deemed appropriate for transfer to the assisted living facility at [facility] and will be transferred there accordingly. Patient will continue to be followed under the care of hospice. Exam Vital Signs (past 8 hours): - 10/03/18 07:15 10/03/18 09:25 Temperature 98.0 F Pulse Rate 59 L 70 Respiratory Rate 16 Blood Pressure 139/61 Pulse Oximetry 94 Oxygen Delivery Method Room Air Oxygen Flow Rate 0 Narrative Exam Narrative: Elderly male resting comfortably Lungs: Clear to auscultation Cardiac exam: Regular rate and rhythm normal S1-S2 with a 2/6 systolic ejection Abdomen: Soft nontender nondistended Sacrum: Erythematous area no open lesions identified Lower extremities no edema Objective Labs Result Diagrams: 09/25/18 04:43 09/25/18 04:43 Discharge Plan Discharge Plan Discharge Problem: Pneumonia Patient Disposition: Assisted Living Transfer to: [facility] Transportation: Ambulance Consult as needed: Dental, Hearing, Mental health, Podiatry and Vision I certify the postop hospital senior living care is medically necessary on a continuing basis for any conditions for which he/ she received care during this hospitalization.: Yes The receiving facility has agreed to accept transfer and provide medical treatment.: Yes Discharge Med Rec/Prescriptions Prescriptions: New Non-Formulary Medication [Patient's Own Medication] 1 ea EYE-RIGHT BEDTIME 30 Days RF: 0 haloperidol 1 mg Tablet 1 mg PO BEDTIME 30 Days RF: 0 Durezol 1 drp EYE-LEFT BID 30 Days RF: 0 Continued buspirone 5 mg Tablet 1.25 mg PO BEDTIME RF: 0 carvedilol [Coreg] 12.5 mg Tablet 12.5 mg PO BID RF: 0 sertraline [Zoloft] 50 mg Tablet 50 mg PO DAILY RF: 0 Durezol 0.05 % Drops 1 drp EYE-LEFT BID RF: 0 latanoprost 0.005 % Drops 1 drp EYE-RIGHT BEDTIME RF: 0 mirtazapine 15 mg Tablet 7.5 mg PO BEDTIME RF: 0 Discontinued nitroglycerin [Nitrostat] 0.4 MG tablet, sublingual 0.4 mg Sublingual PRN PRN (Reason: Chest Pain) Qty: 0 RF: 0 atorvastatin [Lipitor] 80 mg Tablet 80 mg PO DAILY RF: 0 hydralazine 25 mg Tablet 25 mg PO BID RF: 0 clopidogrel [Plavix] 75 mg Tablet 75 mg PO DAILY RF: 0 gabapentin 300 mg Capsule 300 mg PO TID RF: 0 isosorbide mononitrate 30 mg Tablet Extended Release 24 Hr 30 mg PO DAILY RF: 0 tramadol 50 mg Tablet 50 mg PO TID PRN (Reason: pain) RF: 0 Discharge Orders: Discharge (Order); Ordered 10/03/18 Ordered By: Nasrin Yepez Provider Discharge Instructions Diet: Diet as Tolerated Food texture: Regular Skin/Wound/Dressing Care Skin care: Sacral decubitus to the sacral area Discharge Data Attending Provider: Taran Valdez Admit Date/Time: 09/24/18 15:53 Quality VTE Deep Vein Thrombosis/Pulmonary Embolism Present on Admission: No
--- NOTE | 2018-10-03 10:06 | P.DS_ITS ---
History of Present Illness Date Patient Seen: 10/03/18 Chief complaint: Fell, weakness/confusion Narrative: Mr. Hilario Lopez is an 83-year-old male patient with history significant for myocardial infarction, atrial fibrillation, CHF with reduced ejection fraction, hypertension, aortic aneurysm status post repair, T&A, central retinal artery occlusion, vascular dementia with behavioral disturbances and right AKA presents to the emergency department for complaints of weakness. The patient had slid off chair sustaining no trauma and was unable to get. The patient has had increasing frequency of falls with an increase in need for assistance to get up including response by emergency services. The patient is an unreliable historian with varying levels of confusion believing he is in his home at the time of examination. Other elements of remote history he is able to accurately recall which is verified by his daughter Isadora who arrives during the exam. She describes his level of mentation is slightly better than average. She does note that he will become abusive and belligerent and refused to take his medications. Patient's daughter sets up his medications at home where he lives his . The patient states he has had no recent complaints of illness and has undergone left eye surgery for persistent elevated intra-ocular pressure with placement of a stent 3 weeks ago. He is on multiple eyedrops which are yet to be clarified. The patient otherwise denies any complaints of recent illness, fevers or chills. The patient is 3 weeks postop surgery on left eye for central retinal vein occlusion and acute glaucoma with loss of vision, history a color blindness. He has had no nasal congestion or sore throat and denies shortness of breath or cough. His daughter Yolie endorses the patient coughs with eating. He denies chest pain or palpitations though has a history [place] and atrial fibrillation. He denies abdominal pain, nausea vomiting, diarrhea or constipation. 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 Upon arrival to the ER the patient is found to be febrile at 11.4 with heart ra te of 90 and blood pressure 132/63 with respiratory rate of 23 saturating at 96% on room air. On chest x-ray and x-ray the patient is found to have right upper lobe pneumonia and cardiac echo completed 4 days ago shows an EF of 30-45% with akinesis consistent with prior apical and septal infarct. If further notes that there is no change compared with study done on 07/07/2015. Respiratory panel was completed which is found to be negative. A Frazier catheter is placed due to urinary retention with urine now red in color and per patient and family no prior hematuria. UA shows 1+ protein, 3+ blood, trace leukocyte esterase, with no WBCs or nitrites and occasional bacteria. The patient is admitted for ongoing evaluation and treatment for pneumonia. Discharge Providers Date of admission: 09/24/18 15:53 Discharge Date: 10/03/18 Consults: 09/24/18 16:56 Consult to Dietitian, Adult Routine Comment: Reason For Exam: assessed at high risk. Consult to Pastoral Services Routine Comment: Pt request. 09/24/18 17:42 Consult to Speech Therapy Evaluate & Treat Comment: Physician Instructions: Evaluate and treat 09/24/18 21:25 Consult to Discharge Planning Routine Comment: Failure to live at home, needs placement Consult to Occupational Therapy Evaluate & Treat Comment: Right AKA, debilitated, frequent falls Physician Instructions: Evaluate and treat 09/24/18 21:26 Consult to Physical Therapy Evaluate & Treat Comment: Right AKA, debilitated, frequent falls Physician Instructions: Evaluate and Treat Consult to Senior Java Data Architect Routine Comment: Clarification of POLST w/ family, has living will 09/24/18 21:27 Consult to Speech Therapy Evaluate & Treat Comment: impaired swallowing, swallow eval. Physician Instructions: Evaluate and treat 09/25/18 07:42 Consult to Senior Java Data Architect Routine Comment: Placement snf memory care 09/26/18 08:05 Consult to Physician Routine Comment: Consulting Provider: John Nuñez Reason for consultation: Advanced dementia with behavioral disturbance Has provider been notified: Yes Discharge provider: Nasrin Yepez MD Summary Discharge Diagnosis: Aspiration pneumonia resolved Sacral decubitus ulcer, stage II Vascular dementia, chronic with behavioral disturbance Hyperlipidemia Hematuria, resolved Chronic atrial fibrillation Chronic systolic heart failure, with reduced ejection Hypertension Hospital Course: The patient is an 83-year-old male who was admitted to the hospital with weakness and behavioral disturbances. During his hospitalization he was found to be aspirating. Because of his difficulty with output and hostile behavior a discussion ensued with the family. Psychiatric consultation was obtained. Patient's medications were just in his behavior improved. Following evaluation in which she was found to be continuously aspirating family conference was held and the family elected comfort measures only. Hospice was consulted and will follow with the patient as an outpatient. Since that time he has had no further outbursts. He has no witnessed aspiration. He did have an indwelling Frazier cath given development of a sacral decubitus. The patient has been improved. He is deemed appropriate for transfer to the assisted living facility at [facility] and will be transferred there accordingly. Patient will continue to be followed under the care of hospice. Exam Vital Signs (past 8 hours): - 10/03/18 07:15 10/03/18 09:25 Temperature 98.0 F Pulse Rate 59 L 70 Respiratory Rate 16 Blood Pressure 139/61 Pulse Oximetry 94 Oxygen Delivery Method Room Air Oxygen Flow Rate 0 Narrative Exam Narrative: Elderly male resting comfortably Lungs: Clear to auscultation Cardiac exam: Regular rate and rhythm normal S1-S2 with a 2/6 systolic ejection Abdomen: Soft nontender nondistended Sacrum: Erythematous area no open lesions identified Lower extremities no edema Objective Labs Result Diagrams: 09/25/18 04:43 09/25/18 04:43 Discharge Plan Discharge Plan Discharge Problem: Pneumonia Patient Disposition: Assisted Living Transfer to: [facility] Transportation: Ambulance Consult as needed: Dental, Hearing, Mental health, Podiatry and Vision I certify the postop hospital correction care is medically necessary on a continuing basis for any conditions for which he/ she received care during this hospitalization.: Yes The receiving facility has agreed to accept transfer and provide medical treatme nt.: Yes Discharge Med Rec/Prescriptions Prescriptions: New Non-Formulary Medication [Patient's Own Medication] 1 ea EYE-RIGHT BEDTIME 30 Days RF: 0 haloperidol 1 mg Tablet 1 mg PO BEDTIME 30 Days RF: 0 Durezol 1 drp EYE-LEFT BID 30 Days RF: 0 Continued buspirone 5 mg Tablet 1.25 mg PO BEDTIME RF: 0 carvedilol [Coreg] 12.5 mg Tablet 12.5 mg PO BID RF: 0 sertraline [Zoloft] 50 mg Tablet 50 mg PO DAILY RF: 0 Durezol 0.05 % Drops 1 drp EYE-LEFT BID RF: 0 latanoprost 0.005 % Drops 1 drp EYE-RIGHT BEDTIME RF: 0 mirtazapine 15 mg Tablet 7.5 mg PO BEDTIME RF: 0 Discontinued nitroglycerin [Nitrostat] 0.4 MG tablet, sublingual 0.4 mg Sublingual PRN PRN (Reason: Chest Pain) Qty: 0 RF: 0 atorvastatin [Lipitor] 80 mg Tablet 80 mg PO DAILY RF: 0 hydralazine 25 mg Tablet 25 mg PO BID RF: 0 clopidogrel [Plavix] 75 mg Tablet 75 mg PO DAILY RF: 0 gabapentin 300 mg Capsule 300 mg PO TID RF: 0 isosorbide mononitrate 30 mg Tablet Extended Release 24 Hr 30 mg PO DAILY RF: 0 tramadol 50 mg Tablet 50 mg PO TID PRN (Reason: pain) RF: 0 Discharge Orders: Discharge (Order); Ordered 10/03/18 Ordered By: Nasrin Yepez Provider Discharge Instructions Diet: Diet as Tolerated Food texture: Regular Skin/Wound/Dressing Care Skin care: Sacral decubitus to the sacral area Discharge Data Attending Provider: Taran Valdez Admit Date/Time: 09/24/18 15:53 Quality VTE Deep Vein Thrombosis/Pulmonary Embolism Present on Admission: No
--- NOTE | 2018-10-03 10:27 | PC.NURSE ---
Skin: Duoderm removed from coccyx, wound photographed per request from Dr Yepez (to document what it looks like prior to patient transferring to SNF). Placed new Duoderm dressing, repositioned for comfort.
--- NOTE | 2018-10-03 11:02 | CM.DPC ---
Addendum entered by Swati Wynn 10/03/18 11:15: Patient's spouse provided METALLURGICAL ENGINEERING TECHNICIAN with verbal to sign Important Message from [employer] this AM. WALTER Stout Original Note: DCP/Assessment: Reviewed chart. Orders obtained for patient to discharge to [facility] today. METALLURGICAL ENGINEERING TECHNICIAN placed call to Joleen at Hospice. She confirms that patient will be on service once they can open(hopefully this week). Joleen aware that patient discharging to [facility] today. Placed call to Caro at [facility] she is currently doing admits. She is in agreement to accept today. She is requesting to pick patient up at approximately 2:00pm. RN updated. Caro aware that patient on po Haldol. Also that hospice is following. Placed call to patient's spouse/Catalina she confirms plan for patient to go to [facility] today. However, she believes that once hospice coordinated/settled that patient can come home. Encouraged spouse to discuss with both hospice and [facility]. Spouse made aware that she will need to hire caregivers. Spouse reports that her daughter/Isadora is helping with that. However, she is unsure that daughter wants patient home. Asked MARCIO/Susana to fax clinicals to [facility] and d/c ari to Hospice. Met briefly with patient this AM. He is alert today and agreeable to plan. Patient reports that his ultimate goal is to get home. P: [facility] today. Patient's spouse will notify additional family members about patient's discharge/transfer today. WALTER Stout
--- NOTE | 2018-10-03 11:43 | PC.NURSE ---
Day shift: Pt under this typewriter aligner care at this time. Pt to d/c to [facility] at approx 1400 today.
--- NOTE | 2018-10-03 12:35 | PC.NURSE ---
Late entry: No IV access. Karin barber'd at 1100 per MD order, no urge to void as of yet. Report called to Ann-Marie at [facility]. Transfer packet all ready to go, including script for Haldol. Verbal report given to RN assuming care from this database report writer.
--- NOTE | 2018-10-03 14:14 | PC.NURSE ---
Day shift: Pt left unit at approx 1415 to [facility]. Left in WC with transport person w/ SNF packet. Pt agitated with family members. Calm and cooperative with staff. Report called by MEET Padilla who went home 2 hours ago.
== END 2018-10-03 14:17 | disposition hospice, home (50) | DRG 177 ==
LOC: ED 15:27 → AC 15:54 → ICU 16:07 → AC 09-28 13:33
PROVIDERS: Internal Medicine; Admitting Provider Nurse Practitioner Adult Health; Emergency Provider Emergency Medicine; Visit Provider Nurse Practitioner Adult Health
DX: J69.0 Pneumonitis due to inhalation of food and vomit (principal); E43 Unspecified severe protein-calorie malnutrition; I50.22 Chronic systolic (congestive) heart failure; F01.51 Vascular dementia, unspecified severity, with behavioral disturbance; Z68.1 Body mass index [BMI] 19.9 or less, adult; F05 Delirium due to known physiological condition; I11.0 Hypertensive heart disease with heart failure; R33.9 Retention of urine, unspecified; I48.2 Chronic atrial fibrillation; R31.0 Gross hematuria; R62.7 Adult failure to thrive; R13.13 Dysphagia, pharyngeal phase; Z87.891 Personal history of nicotine dependence; E78.5 Hyperlipidemia, unspecified; H40.9 Unspecified glaucoma; Z51.5 Encounter for palliative care; L89.152 Pressure ulcer of sacral region, stage 2; W01.0XXA Fall on same level from slipping, tripping and stumbling without subsequent striking against object, initial encounter
CPT/HCPCS: 36415; 36591; 51701; 51798; 71045; 74230; 80048; 80053; 81001; 83605; 83880; 84145; 85025; 85610; 85730; 87040; 87086; 87449; 87633; 87797; 90792; 92526; 92610; 92611; 93005; 93010; 94762; 96365; 96366; 97162; 97530; 99285; J1630; J1644